=== PATIENT | male | born 1985 | race African-American/Black ===

== ENCOUNTER 2017-07-14 11:46 | Inpatient (IN) | payer MEDICAID, OTHER ==
[2017-07-14] VITALS (14 sets, daily range): BP systolic 117–147; BP diastolic 57–76; PULSE 60–95; RESP 16–24; TEMP 99.7; Ht 182.9 cm; Wt 102.8 kg
[~2017-07-14] VITALS: Ht 182.9 cm; Wt 102.8 kg
[~2017-07-14 11:46] MED LIST: EPINEPHrine 100 MCG/10 ML SYG IV ONE
[2017-07-14] MEDS ORDERED: KETOROLAC 30 MG INJ IV STA (12:59)
[2017-07-14] MEDS ORDERED: SOD CHLORIDE 0.9% 1,000 ML IV STA ×2 (12:59→14:25)
[2017-07-14] MEDS ORDERED: ONDANSETRON 4 MG INJ IV STA ×2 (12:59→14:09)
[2017-07-14 13:44] LABS: BASOPHILS % 0.1 % (0.0-2.0); HEMATOCRIT 48.3 % (42.0-52.0); HEMOGLOBIN 16.2 g/dl (14.0-18.0); LYMPHOCYTES % 7.2 % (15.0-51.0); MEAN CORPUSCULAR HEMOGLOBIN 26.7 pg (29.0-33.0); MEAN CORPUSCULAR HGB CONC 33.5 g/dl (32.0-37.0); MEAN CORPUSCULAR VOLUME 79.7 fl (82.0-101.0); MONOCYTE # 0.5 10^3/ul (0.3-0.9); MONOCYTES % 3.6 % (0.0-11.0); NEUTROPHIL # 12.4 10^3/ul (1.6-7.5); NEUTROPHILS % 88.7 % (39.0-77.0); PLATELET COUNT 326 10^3/UL (140-415); RED BLOOD COUNT 6.06 10^6/ul (4.70-6.10); RED CELL DISTRIBUTION WIDTH 13.7 % (11.5-14.5)
[2017-07-14 14:02] LABS: ADD UMIC YES; UR ASCORBIC ACID 40 mg/dL (NEGATIVE); UR BACTERIA FEW /HPF (NONE SEEN); UR BILIRUBIN (Dip) NEGATIVE (NEGATIVE); UR BLOOD (Dip) NEGATIVE (NEGATIVE); UR CLARITY CLEAR (CLEAR); UR COLOR YELLOW (YELLOW); UR GLUCOSE (Dip) NEGATIVE (NEGATIVE); UR KETONES (Dip) 2+ mg/dL (NEGATIVE); UR LEUKOCYTE ESTERASE (Dip) NEGATIVE Leu/ul (NEGATIVE); UR MUCUS MODERATE /HPF (NONE SEEN); UR NITRITE (Dip) NEGATIVE (NEGATIVE); UR RBC 15 /HPF (0-5); UR SPECIFIC GRAVITY (Dip) 1.031 (1.003-1.030); UR TOTAL PROTEIN (Dip) 1+ mg/dl (NEGATIVE); UR UROBILINOGEN (Dip) NEGATIVE (NEGATIVE)
[2017-07-14 14:03] LABS: ALBUMIN 4.6 g/dl (3.3-4.9); ALBUMIN/GLOBULIN RATIO 1.17; BILIRUBIN,INDIRECT 0.8 mg/dl (0-1.1); BILIRUBIN,TOTAL 0.8 mg/dl (0.2-1.3); CALCIUM 9.7 mg/dl (8.4-10.2); CREATININE 1.06 mg/dl (0.61-1.24); TOTAL PROTEIN 8.5 g/dl (6.1-8.1)
[2017-07-14] MEDS ORDERED: PIPER-TAZO 3.375 GM IV (PMX) 50 ML IV ONE (14:30)
--- NOTE | 2017-07-14 14:36 | ERD ---
ER Documentation Chief Complaint Chief Complaint AP N/V/D (RUDOLPH MOSS PA-C) HPI 31-year-old male, states he has a history of T-wave inversions otherwise healthy comes in with diffuse lower abdominal pain, nausea, vomiting and diarrhea beginning last night at 2 AM. Patient describes multiple episodes of nonbloody nonbilious emesis and 4 episodes of loose stools are nonbloody non- mucousy. Describes sharp pain in his lower abdomen that is diffuse, radiates bilaterally. He reports that his girlfriend at home also has had similar symptoms. He denies fevers, chills, chest pain or shortness of breath. (RUDOLPH MOSS PA-C) ROS All systems reviewed and are negative except as per history of present illness. (RUDOLPH MOSS PA-C) Allergies Allergies: Coded Allergies: No Known Allergy (Unverified , 07/14/17) PMhx/Soc History of Surgery: No Anesthesia Reaction: No Hx Neurological Disorder: No Hx Respiratory Disorders: No Hx Cardiac Disorders: No Hx Psychiatric Problems: No Hx Miscellaneous Medical Probl: No Hx Alcohol Use: No Hx Substance Use: No Hx Tobacco Use: No (RUDOLPH MOSS PA-C) Physical Exam Vitals Vital Signs Date Time Temp Pulse Resp B/P Pulse Ox O2 Delivery O2 Flow Rate FiO2 07/14/17 11:55 98.0 52 18 153/72 96 (JÚNIOR CAMPA DO) Physical Exam General: Well-developed, well-nourished. The patient appears in no acute distress. HEENT: Head is normocephalic, atraumatic. No scleral icterus. Neck: Supple. Nontender. Lungs: Clear to auscultation. Normal air movement. Heart: Regular rate and rhythm. S1 and S2 are normal. No murmurs, gallops, or rubs. Abdomen: Soft, definite tenderness in the right lower quadrant with rebound pain , nondistended. Bowel sounds are normoactive. Extremities: No clubbing or cyanosis. Normal pulses. Moving extremities x 4. No weakness. Neurologic: Alert and oriented 3. No focal deficits. Skin: Normal turgor. No rash or lesions. (RUDOLPH MOSS PA-C) Result Diagram: 07/14/17 1315 07/14/17 1315 Results 24 hrs Laboratory Tests Test 07/14/17 13:15 07/14/17 13:16 White Blood Count 14.010^3/ul Red Blood Count 6.0610^6/ul Hemoglobin 16.2g/dl Hematocrit 48.3% Mean Corpuscular Volume 79.7fl Mean Corpuscular Hemoglobin 26.7pg Mean Corpuscular Hemoglobin Concent 33.5g/dl Red Cell Distribution Width 13.7% Platelet Count 23832^3/UL Mean Platelet Volume 9.0fl Neutrophils % 88.7% Lymphocytes % 7.2% Monocytes % 3.6% Eosinophils % 0.0% Basophils % 0.1% Nucleated Red Blood Cells % 0.0/100WBC Neutrophils # 12.410^3/ul Lymphocytes # 1.010^3/ul Monocytes # 0.510^3/ul Eosinophils # 0.010^3/ul Basophils # 0.010^3/ul Nucleated Red Blood Cells # 0.010^3/ul Sodium Level 140mmol/L Potassium Level 4.0mmol/L Chloride Level 99mmol/L Carbon Dioxide Level 26mmol/L Anion Gap 19 Blood Urea Nitrogen 11mg/dl Creatinine 1.06mg/dl Glucose Level 125mg/dl Calcium Level 9.7mg/dl Total Bilirubin 0.8mg/dl Direct Bilirubin 0.00mg/dl Indirect Bilirubin 0.8mg/dl Aspartate Amino Transf (AST/SGOT) 46IU/L Alanine Aminotransferase (ALT/SGPT) 75IU/L Alkaline Phosphatase 90IU/L Total Protein 8.5g/dl Albumin 4.6g/dl Globulin 3.90g/dl Albumin/Globulin Ratio 1.17 Lipase 37U/L Urine Color YELLOW Urine Clarity CLEAR Urine pH 7.0 Urine Specific [place] 1.031 Urine Ketones 2+mg/dL Urine Nitrite NEGATIVEmg/dL Urine Bilirubin NEGATIVEmg/dL Urine Urobilinogen NEGATIVEmg/dL Urine Leukocyte Esterase NEGATIVELeu/ul Urine Microscopic RBC 15/HPF Urine Microscopic WBC 2/HPF Urine Bacteria FEW/HPF Urine Mucus MODERATE/HPF Urine Hemoglobin NEGATIVEmg/dL Urine Glucose NEGATIVEmg/dL Urine Total Protein 1+mg/dl Current Medications Medications (Trade) Dose Ordered Sig/Kelly Route PRN Reason Start Time Stop Time Status Last Admin Dose Admin Sodium Chloride (NS) 1,000 ml @ 1,000 mls/hr Q1H STAT IV 07/14/17 12:59 07/14/17 13:58 DC 07/14/17 13:25 Ondansetron HCl (Zofran Inj) 4 mg ONCE STAT IV 07/14/17 12:59 07/14/17 13:00 DC 07/14/17 13:25 Ketorolac Tromethamine (Toradol) 30 mg ONCE STAT IV 07/14/17 12:59 07/14/17 13:00 DC 07/14/17 13:25 Ondansetron HCl 4 mg 4 mg ONCE STAT IV 07/14/17 14:09 07/14/17 14:10 DC 07/14/17 14:12 Sodium Chloride 1,000 ml @ 1,000 mls/hr Q1H STAT IV 07/14/17 14:25 07/14/17 15:24 Piperacillin Sod/ Tazobactam Sod (Zosyn 3.375gm/ 50 ml (Pmx)) 50 ml @ 100 mls/hr ONCE ONCE IV 07/14/17 14:30 07/14/17 14:59 (JÚNIOR CAMPA DO) Results 24 hrs PROCEDURE: CT ABDOMEN AND PELVIS WITHOUT CONTRAST. CLINICAL INDICATION: Right lower quadrant abdominal pain TECHNIQUE: CT scan of the abdomen and pelvis without contrast was performed on a multidetector high-resolution CT scanner. The patient was scanned without intravenous contrast. Coronal and sagittal reformatted images were obtained from the axial source images. Images were reviewed on a high-resolution PACS workstation. The total exam CTDI equals 19.2 mGy and the total exam DLP equals 1089.5 mGy-cm. One or more of the following dose reduction techniques were used: Automated exposure control. Adjustment of the mA and/or kV according to patient size. Use of iterative reconstruction technique. DICOM images are available COMPARISON: None FINDINGS: CT abdomen: The lung bases are clear. The heart size is within limits. There is no significant pericardial effusion. There is diffuse fatty infiltration of the liver. Gallbladder is unremarkable. No evidence of intrahepatic or extrahepatic biliary dilatation. The spleen and pancreas are within normal limits. Both adrenal glands are within normal limits. Both kidneys are in normal anatomic position. No evidence of obstruction or hydronephrosis. No gross renal/ureteric calculi. The visualized GI tract demonstrates a fluid filled distended appendix, consistent with acute appendicitis. There is mild adjacent fat stranding. A 1.0 cm appendicolith is noted proximally at the base of the appendix. Several adjacent right lower quadrant mesenteric lymph nodes are noted. The unenhanced aorta is unremarkable. There is no significant retroperitoneal lymphadenopathy. Small fat-containing umbilical hernia. CT pelvis: The bladder is within limits. The rectosigmoid colon is within normal limits. The prostate is normal size. Small amount of free fluid within the pelvis. No significant pelvic lymphadenopathy. The visualized osseous structures, appears to be within normal limits. IMPRESSION: 1. FINDINGS DESCRIBED ABOVE ARE CONSISTENT WITH ACUTE APPENDICITIS. There is no evidence of perforation or focal fluid collections. Mild adjacent fat stranding is noted. There is a 1.0 cm appendicolith at the base of the appendix. Several adjacent mesenteric lymph nodes are noted. 2. No evidence of bowel obstruction. 3. Fatty liver. 4. Small amount of free fluid within the pelvis. Critical findings were discussed with KENDY Moss @ 2:20 PM on 07/14/17 RPTAT: AAPP Signed By: Azael Jefferson 07/14/2017 2:22:17 PM 12-lead EKG(interpreted by supervising physician): Reviewed by Dr. Campa Rate/Rhythm: Sinus bradycardia, the rate of 48, nonspecific ST changes with T-wave inversions in lateral leads. QRS, ST, T-waves: No changes consistent w/ acute ischemia, no intervals, no dysrhythmias, no ectopy Impression: No evidence of ischemia or arrhythmia (RUDOLPH MOSS PA-C) Procedures/MDM ED COURSE: Initially the thought was that the patient likely had viral gastroenteritis, he was given a fluid bolus of normal saline with Zofran 4 mg IV and Toradol 30 mg IV. The patient states that his pain significantly improved however he still has significant tenderness in the right lower quadrant and therefore CT abdomen pelvis was ordered. CT abdomen pelvis was significant for acute appendicitis with an appendicolith measuring up to 1 cm. She states his last intake was at 7 PM last night, patient was kept n.p.o. MEDICAL DECISION MAKIN-year-old male comes in with acute appendicitis, no perforation or intra- abdominal abscess. The patient's history was concerning given his vomiting with significant pain in the lower abdomen, in the right lower quadrant. Diarrhea was also part of patient's history but may be part of a gastroenteritis given that the patient's girlfriend has had similar symptoms. Patient was notified of findings, and will be admitted, adult surgery will be consulted by Dr. Campa. (RUDOLPH MOSS PA-C) I spoke with Dr. Liz, general surgeon stone setter who will manage this case surgically. Adding additional fluids. I will continue to monitor this patient for pain control and any change from stable vital signs. Waiting registration to see if the patient has a specific admitting provider and will speak to that provider get the patient admitted to the hospital as soon as possible. (JÚNIOR CAMPA DO) Departure Diagnosis: Primary Impression: Appendicitis Condition: Stable RUDOLPH MOSS PA-C Jul 14, 2017 14:36 JÚNIOR CAMPA DO Jul 14, 2017 14:42
[2017-07-14] MEDS ORDERED: SOD CHLORIDE 0.9% 1,000 ML IV ONE (15:00)
[2017-07-14] MEDS ORDERED: ALBU18HF INHALATION (16:27)
--- NOTE | 2017-07-14 16:55 | RADRPT ---
PROCEDURE: CT ABDOMEN AND PELVIS WITHOUT CONTRAST. CLINICAL INDICATION: Right lower quadrant abdominal pain TECHNIQUE: CT scan of the abdomen and pelvis without contrast was performed on a multidetector hig h-resolution CT scanner. The patient was scanned without intravenous contrast. Coronal and sagittal reformatted images were obtained from the axial source images. Images were reviewed on a high-resol [employer] PACS workstation. The total exam CTDI equals 19.2 mGy and the total exam DLP equals 1089.5 mGy -cm. One or more of the following dose reduction techniques were used: Automated exposure control. Adjustment of the mA and/or kV according to patient size. Use of iterative reconstruction technique. DICOM images are available COMPARISON: None FINDINGS: CT abdomen: The lung bases are clear. The heart size is within limits. There is no significant pericardial effus ion. There is diffuse fatty infiltration of the liver. Gallbladder is unremarkable. No evidence of intrah epatic or extrahepatic biliary dilatation. The spleen and pancreas are within normal limits. Both adrenal glands are within normal limits. Both kidneys are in normal anatomic position. No evidence of obstruction or hydronephrosis. No gross renal/ureteric calculi. The visualized GI tract demonstrates a fluid filled distended appendix, consistent with acute append icitis. There is mild adjacent fat stranding. A 1.0 cm appendicolith is noted proximally at the base of the appendix. Several adjacent right lower quadrant mesenteric lymph nodes are noted. The unenhanced aorta is unremarkable. There is no significant retroperitoneal lymphadenopathy. Small fat-containing umbilical hernia. CT pelvis: The bladder is within limits. The rectosigmoid colon is within normal limits. The prostate is normal size. Small amount of free fluid within the pelvis. No significant pelvic lymphadenopathy. The visualized osseous structures, appears to be within normal limits. IMPRESSION: 1. FINDINGS DESCRIBED ABOVE ARE CONSISTENT WITH ACUTE APPENDICITIS. There is no evidence of perfo ration or focal fluid collections. Mild adjacent fat stranding is noted. There is a 1.0 cm appendico lith at the base of the appendix. Several adjacent mesenteric lymph nodes are noted. 2. No evidence of bowel obstruction. 3. Fatty liver. 4. Small amount of free fluid within the pelvis. Critical findings were discussed with KENDY Moss @ 2:20 PM on 07/14/17 RPTAT: AAPP Bienvenido Jefferson, Physician Date Time Electronically viewed and signed by Bienvenido Jefferson Physician on 07/14/2017 14:22 JL/
--- NOTE | 2017-07-14 16:56 | RADRPT ---
PROCEDURE: XR Chest. CLINICAL INDICATION: Abdominal pain, appendicitis TECHNIQUE: Single frontal view of the chest was obtained COMPARISON: CT from same day FINDINGS: The heart and mediastinum are within normal limits. The lungs are clear. There is no pleural effusion or pneumothorax. RPTAT: AA IMPRESSION: No acute disease. .Abhijit Fakl MD, MD Date Time Electronically viewed and signed by .Abhijit Falk MD, on 07/14/2017 15:16 .S/
[2017-07-14] MEDS ORDERED: morphine 4 MG/ML VIAL IV STA (17:19)
[2017-07-14] MEDS ORDERED: ONDANSETRON 4 MG INJ IV PRN ×4 (17:30→22:30)
[2017-07-14] MEDS ORDERED: ACETAMINOPHEN 325 MG TAB PO PRN (17:30)
[2017-07-14] MEDS ORDERED: DOCUSATE SODIUM 100 MG CAP PO PRN (18:00)
[2017-07-14] MEDS ORDERED: NACL 0.9% 3 ML SYG IV SCH (18:00)
[2017-07-14] MEDS ORDERED: MAGNESIUM HYDROXIDE 30ML CUP PO PRN (18:00)
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
[2017-07-14] MEDS ORDERED: SOD CHLORIDE 0.9% 1,000 ML IV SCH (18:30)
[2017-07-14] MEDS ORDERED: LIDOCAINE 1%/EPI 30 ML INJ ONE (20:12)
[2017-07-14] MEDS ORDERED: BUPIVACAINE 0.25%/EPI (SDV) 30 ML INJ ONE (20:12)
[2017-07-14] MEDS ORDERED: NEOSTIGMINE 3 MG/3 ML SYRINGE ONE (21:14)
[2017-07-14] MEDS ORDERED: ROCURONIUM 50 MG INJ ONE (21:14)
[2017-07-14] MEDS ORDERED: MIDAZOLAM 1 MG/ML 2 ML INJ ONE (21:14)
[2017-07-14] MEDS ORDERED: CEFAZOLIN 1 GM INJ ONE (21:14)
[2017-07-14] MEDS ORDERED: GLYCOPYRROLATE 0.4 MG INJ ONE (21:14)
[2017-07-14] MEDS ORDERED: FENTAnyl 50 MCG/ML VIAL ONE ×2 (21:14→22:09)
[2017-07-14] MEDS ORDERED: PROPOFOL 20 ML ONE (21:14)
[2017-07-14] MEDS ORDERED: DEXAMETHASONE 4 MG/ML 1 ML INJ ONE (21:15)
[2017-07-14] MEDS ORDERED: ONDANSETRON 4 MG INJ ONE (21:15)
[2017-07-14] MEDS ORDERED: SUGAMMADEX SODIUM 200 MG/2 ML VIAL IV ONE (21:17)
--- NOTE | 2017-07-14 21:31 | SIPON ---
Date/Time of Note Date/Time of Note DATE: 07/14/17 TIME: 21:31 Operative Report Preoperative Diagnosis Acute appendicitis Postoperative Diagnosis Same Operation/Procedure Performed Laparoscopic appendectomy Surgeon see signature line financial assistance specialist None Anesthesia: general Estimated blood loss: minimal Transfusion Required none Specimen Appendix Grafts/Implants none Complications none JOSÉ ANTONIO TIWARI MD Jul 14, 2017 21:31
--- NOTE | 2017-07-14 21:31 | CONS ---
Date/Time of Note Date/Time of Note DATE: 07/14/17 TIME: 21:28 Assessment/Plan Assessment/Plan Additional Assessment/Plan Acute appendicitis I discussed laparoscopic, possible open, appendectomy the patient. All benefits , risks, alternatives discussed in detail. All questions answered. The patient asked to proceed Consultation Date/Type/Reason Admit Date/Time 07/14/17 Date of Consultation: Jul 14, 2017 Hx of Present Illness The patient is a 31-year-old male who had acute onset of generalized abdominal pain this morning at 2 AM. He thought to be gastroenteritis. However, over the course of the day his pain localized to right lower quadrant he presented to the ER. His workup in the ER is consistent with acute appendicitis. Past Medical History Medical History: high cholesterol, other (asthma as a child, T wave inversions) Past Surgical History Past Surgical Hx: no surgical history, other (achilles repair) Family History Significant Family History: no pertinent family hx Social History Alcohol Use: none Smoking Status: Never smoker Drug Use: none Exam/Review of Systems Vital Signs Vitals Vital Signs Date Time Temp Pulse Resp B/P Pulse Ox O2 Delivery O2 Flow Rate FiO2 07/14/17 20:08 99.2 73 16 117/57 96 07/14/17 19:00 Room Air Exam Constitutional: alert, oriented, well developed Psych: no complaints Head: normocephalic Eyes: nl conjunctiva ENMT: nl external ears & nose Neck: supple Respiratory: clear to auscultation Cardiovascular: regular rate and rhythm Gastrointestinal: soft, tender Musculoskeletal: nl extremities to inspection Extremities: normal pulses Neurological: 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 II-XII intact (Right lower quadrant) Skin: nl turgor Lymph: nl lymph nodes Results Result Diagram: 07/14/17 1315 07/14/17 1315 Results 24 hrs Laboratory Tests Test 07/14/17 13:15 07/14/17 13:16 White Blood Count 14.0 H Red Blood Count 6.06 Hemoglobin 16.2 Hematocrit 48.3 Mean Corpuscular Volume 79.7 L Mean Corpuscular Hemoglobin 26.7 L Mean Corpuscular Hemoglobin Concent 33.5 Red Cell Distribution Width 13.7 Platelet Count 326 Mean Platelet Volume 9.0 Neutrophils % 88.7 H Lymphocytes % 7.2 L Monocytes % 3.6 Eosinophils % 0.0 Basophils % 0.1 Nucleated Red Blood Cells % 0.0 Neutrophils # 12.4 H Lymphocytes # 1.0 Monocytes # 0.5 Eosinophils # 0.0 Basophils # 0.0 Nucleated Red Blood Cells # 0.0 Sodium Level 140 Potassium Level 4.0 Chloride Level 99 Carbon Dioxide Level 26 Anion Gap 19 H Blood Urea Nitrogen 11 Creatinine 1.06 Glucose Level 125 Calcium Level 9.7 Total Bilirubin 0.8 Direct Bilirubin 0.00 Indirect Bilirubin 0.8 Aspartate Amino Transf (AST/SGOT) 46 Alanine Aminotransferase (ALT/SGPT) 75 H Alkaline Phosphatase 90 Total Protein 8.5 H Albumin 4.6 Globulin 3.90 H Albumin/Globulin Ratio 1.17 Lipase 37 Urine Color YELLOW Urine Clarity CLEAR Urine pH 7.0 Urine Specific [place] 1.031 H Urine Ketones 2+ H Urine Nitrite NEGATIVE Urine Bilirubin NEGATIVE Urine Urobilinogen NEGATIVE Urine Leukocyte Esterase NEGATIVE Urine Microscopic RBC 15 H Urine Microscopic WBC 2 Urine Bacteria FEW A Urine Mucus MODERATE Urine Hemoglobin NEGATIVE Urine Glucose NEGATIVE Urine Total Protein 1+ H Imaging Free Text/Dictation Patient: MO SNOW : 1985 Age: 31 Sex: M MR #: [id number] DOS: 07/14/17 1354 Ordering MD: RUDOLPH VINES PA-C Location: [facility] Room/Bed: PROCEDURE: CT ABDOMEN AND PELVIS WITHOUT CONTRAST. CLINICAL INDICATION: Right lower quadrant abdominal pain TECHNIQUE: CT scan of the abdomen and pelvis without contrast was performed on a multidetector high-resolution CT scanner. The patient was scanned without intravenous contrast. Coronal and sagittal reformatted images were obtained from the axial source images. Images were reviewed on a high-resolution PACS workstation. The total exam CTDI equals 19.2 mGy and the total exam DLP equals 1089.5 mGy-cm. One or more of the following dose reduction techniques were used: Automated exposure control. Adjustment of the mA and/or kV according to patient size. Use of iterative reconstruction technique. DICOM images are available COMPARISON: None FINDINGS: CT abdomen: The lung bases are clear. The heart size is within limits. There is no significant pericardial effusion. There is diffuse fatty infiltration of the liver. Gallbladder is unremarkable. No evidence of intrahepatic or extrahepatic biliary dilatation. The spleen and pancreas are within normal limits. Both adrenal glands are within normal limits. Both kidneys are in normal anatomic position. No evidence of obstruction or hydronephrosis. No gross renal/ureteric calculi. The visualized GI tract demonstrates a fluid filled distended appendix, consistent with acute appendicitis. There is mild adjacent fat stranding. A 1.0 cm appendicolith is noted proximally at the base of the appendix. Several adjacent right lower quadrant mesenteric lymph nodes are noted. The unenhanced aorta is unremarkable. There is no significant retroperitoneal lymphadenopathy. Small fat-containing umbilical hernia. CT pelvis: The bladder is within limits. The rectosigmoid colon is within normal limits. The prostate is normal size. Small amount of free fluid within the pelvis. No significant pelvic lymphadenopathy. The visualized osseous structures, appears to be within normal limits. IMPRESSION: 1. FINDINGS DESCRIBED ABOVE ARE CONSISTENT WITH ACUTE APPENDICITIS. There is no evidence of perforation or focal fluid collections. Mild adjacent fat stranding is noted. There is a 1.0 cm appendicolith at the base of the appendix. Several adjacent mesenteric lymph nodes are noted. 2. No evidence of bowel obstruction. 3. Fatty liver. 4. Small amount of free fluid within the pelvis. Medications Medications Current Medications Ondansetron HCl (Zofran Inj) 4 mg Q6H PRN IV NAUSEA AND/OR VOMITING; Start at 18:00 Acetaminophen (Tylenol Tab) 650 mg Q6H PRN PO PAIN LEVEL 1-3 OR FEVER; Start 07/14/17 at 18:00 Acetaminophen/ Hydrocodone Bitart ([place] (5/325)) 1 tab Q6H PRN PO MODERATE PAIN LEVEL 4-6; Start 07/14/17 at 18:00 Acetaminophen/ Hydrocodone Bitart ([place] (5/325)) 2 tab Q6H PRN PO SEVERE PAIN LEVEL 7-10; Start 07/14/17 at 18:00 Morphine Sulfate (morphine) 2 mg Q4H PRN IV SEVERE PAIN LEVEL 7-10; Start at 18:00 Docusate Sodium (Colace) 100 mg Q12H PRN PO CONSTIPATION; Start 07/14/17 at 18 :00 Magnesium Hydroxide 30 ml 30 ml DAILY PRN PO CONSTIPATION; Start 07/14/17 at 18:00 Sodium Chloride (NS) 1,000 ml @ 75 mls/hr [id number] IV Last administered on t 19:43; Admin Dose 75 MLS/HR; Start 12/14/17 at 18:30; Stop 07/15/17 at 06:29 Famotidine (Pepcid) 20 mg DAILY PO ; Start 07/15/17 at 09:00 JOSÉ ANTONIO TIWARI MD Jul 14, 2017 21:31
--- NOTE | 2017-07-14 21:34 | OPR ---
Date/Time of Note Date/Time of Note DATE: 07/14/17 TIME: 21:31 Operative Report Procedure Date: Jul 14, 2017 Preoperative Diagnosis Acute appendicitis Postoperative Diagnosis Same Operation/Procedure Performed Laparoscopic appendectomy Surgeon see signature line Professor/Nurse Anesthetist none Anesthesia Type: general Anesthesiologist: Que King M.D. Estimated Blood Loss: minimal Transfusion none Specimen appendix Grafts/Implants none Complications none Pt Condition Post Procedure: stable Disposition: PACU Indications The patient is a 31-year-old male with a acute onset of generalized abdominal pain, localizing to the right lower quadrant. He presented to the ER and was diagnosed with acute appendicitis. I discussed laparoscopic, possible open appendectomy with the patient. All benefits, risks, alternatives discussed in detail. All questions answered. The patient elected to proceed. Procedure Description The patient was brought to operative room placed supine on the table. After preop antibiotics and SCDs were applied, the patient was intubated and the abdomen was cleaned, prepped, and draped in usual sterile fashion. All incisions were infiltrated with 1 spotting with epi house Marcaine prior to incision. A 5 mm incision was made in the umbilicus. Using a 5 minute laparoscopic containing trocar, the abdomen was entered direct vision insufflated 50 mm of CO2. Under direct vision, the following trochars were placed: A 5 mm right lower quadrant and a left lower quadrant 12 mm. There was some serosanguineous fluid in the pelvis. The appendix was visualized and was consistent with acute appendicitis.. I made a rent in the mesentery to base the appendix divided the cecum at the base of the appendix with a 35 mm Endo linear cutter white load. The appendiceal mesentery was then divided with a 35 mm Endo linear cutter white load. The appendix was then removed the 12 mm trocar site. I visualized my staple lines. T I then turned my attention to the pelvis. I irrigated out the right lower quadrant and pelvis until effluent was clear. I desufflated the abdomen moved all trochars. The fascia of the 12 mm trocar site was closed with 0 Vicryl. Skin incisions were all closed with 4 Monocryl, Mastisol, and Steri-Strips. The patient tolerated the procedure well, was extubated in the OR, transferred to the recovery room stable condition. JOSÉ ANTONIO TIWARI MD Jul 14, 2017 21:34
[2017-07-14] MEDS ORDERED: AMPICILLIN/SULB 3 GM/NS (PMX) 100 ML IVPB SCH (22:00)
[2017-07-14] MEDS ORDERED: OXYCODONE/ACETAMINOPHEN (5/325) TAB PO PRN ×3 (22:00→22:30)
[2017-07-14] MEDS ORDERED: morphine 2 MG INJ IV PRN (22:00)
[2017-07-14] MEDS ORDERED: KETOROLAC 15 MG INJ IV SCH (22:00)
[2017-07-14] MEDS ORDERED: LABETALOL HCL 20MG INJ IV PRN (22:30)
[2017-07-14] MEDS ORDERED: MIDAZOLAM 1 MG/ML 2 ML INJ IV PRN (22:30)
[2017-07-14] MEDS ORDERED: DIPHENHYDRAMINE 50 MG INJ IV PRN (22:30)
[2017-07-14] MEDS ORDERED: HYDROmorphONE (0.2 MG/ML) 10ML SYG IV PRN ×3 (22:30)
[2017-07-14] MEDS ORDERED: TRIMETHOBENZAMIDE 100 MG/ML VIAL IM PRN (22:30)
[2017-07-14] MEDS ORDERED: EPHEDrine SULFATE 50 MG/5 ML SYG IV PRN (22:30)
[2017-07-14] MEDS ORDERED: ALBUTEROL 0.083% (NEB) 2.5 MG/3 ML AMP HHN PRN (22:30)
[2017-07-14] MEDS ORDERED: FENTAnyl 50 MCG/ML VIAL IV PRN ×3 (22:30)
[2017-07-14] MEDS ORDERED: MEPERIDINE 25 MG INJ IV PRN (22:30)
[2017-07-14] MEDS ORDERED: IPRATROPIUM (NEB) 0.5 MG/2.5 ML AMP HHN PRN (22:30)
[2017-07-14] MEDS ORDERED: hydrALAzine 20 MG INJ IV PRN (22:30)
[2017-07-14] MEDS ORDERED: ALBUTEROL 0.5% (NEB) 2.5 MG/0.5 ML AMP ONE (22:49)
[2017-07-14] MEDS: ALBUTEROL 0.083% (NEB) 2.5 MG/3 ML AMP HHN PRN (22:55)
[2017-07-15] MEDS: KETOROLAC 15 MG INJ IV SCH ×5 (00:45→23:40)
[2017-07-15] MEDS: AMPICILLIN/SULB 3 GM/NS (PMX) 100 ML IVPB SCH ×4 (00:45→18:16)
[2017-07-15] MEDS: D5-NS + KCL 20 MEQ 1,000 ML IV SCH ×3 (00:46→16:35)
[2017-07-15 02:20] VITALS: BP 126/60; RESP 20
[2017-07-15 06:38] LABS: ABNORMAL IP MESSAGE 1; HEMATOCRIT 43.6 % (42.0-52.0); HEMOGLOBIN 14.5 g/dl (14.0-18.0); MEAN CORPUSCULAR HGB CONC 33.3 g/dl (32.0-37.0); MEAN CORPUSCULAR VOLUME 81.2 fl (82.0-101.0); MEAN PLATELET VOLUME 9.3 fl (7.4-10.4); PLATELET COUNT 245 10^3/UL (140-415); POSITIVE DIFF @See below; RED BLOOD COUNT 5.37 10^6/ul (4.70-6.10); RED CELL DISTRIBUTION WIDTH 14.1 % (11.5-14.5); WHITE BLOOD COUNT 15.8 10^3/ul (4.8-10.8)
[2017-07-15 06:50] LABS: ALBUMIN 3.6 g/dl (3.3-4.9); ALBUMIN/GLOBULIN RATIO 1.05; BILIRUBIN,INDIRECT 0.7 mg/dl (0-1.1); BILIRUBIN,TOTAL 0.7 mg/dl (0.2-1.3); CALCIUM 8.8 mg/dl (8.4-10.2); CREATININE 1.32 mg/dl (0.61-1.24); MAGNESIUM 1.6 mg/dl (1.7-2.5); POTASSIUM 4.4 mmol/L (3.5-5.1)
[2017-07-15 08:05] VITALS: BP 118/56; RESP 18
[2017-07-15] MEDS: ENOXAPARIN 40 MG/0.4 ML SYG SC SCH (08:50)
[2017-07-15] MEDS: FAMOTIDINE 20 MG TAB PO SCH (08:51)
[2017-07-15] MEDS: ACETAMINOPHEN 325 MG TAB PO PRN ×2 (08:51→18:22)
[2017-07-15 08:59] LABS: ANISOCYTOSIS 1+ (0-0); BASOPHILS % (M) 1 % (0-2); MICROCYTOSIS 1+ (0-0); MONOCYTES % (M) 8 % (0-11); PLATELET ESTIMATE NORMAL
[2017-07-15] MEDS ORDERED: MAGNESIUM SULFATE 2 GM/50 ML 50 ML IVPB ONE (12:00)
--- NOTE | 2017-07-15 14:35 | PN ---
Date/Time of Note Date/Time of Note DATE: 07/15/17 TIME: 14:34 Assessment/Plan Lines/Catheters IV [facility]): Peripheral IV Assessment/Plan Chief Complaint/Hosp Course Postop day 1 status post lap appendectomy Recommend 1 more day of IV antibiotics. Hopefully, white count will improve and will be febrile and will be able to be discharged tomorrow. Problems: Subjective 24 Hr Interval Summary Postop day 1 status post lap appendectomy Constitutional: ambulates, flatus, improved Feeding: advancing diet Exam/Review of Systems Vital Signs Vitals Vital Signs Date Time Temp Pulse Resp B/P Pulse Ox O2 Delivery O2 Flow Rate FiO2 07/15/17 08:05 100.2 82 18 118/56 93 07/14/17 23:50 Nasal Cannula 2.0 07/14/17 23:02 28 Intake and Output 07/14/17 07/14/17 07/15/17 15:00 23:00 07:00 Intake Total 1275 ml 1160 ml Output Total 5 ml Balance 1270 ml 1160 ml Exam Constitutional: alert, oriented, well developed Psych: no complaints Head: normocephalic Eyes: nl conjunctiva Neck: supple Respiratory: clear to auscultation Cardiovascular: regular rate and rhythm Gastrointestinal: distended (Mildly), soft Results Result Diagram: 07/15/17 0507/15/17 05 JOSÉ ANTONIO TIWARI MD Jul 15, 2017 14:35
[2017-07-15 14:50] VITALS: BP 112/53; RESP 16
--- NOTE | 2017-07-15 18:08 | PN ---
Date/Time of Note Date/Time of Note DATE: 07/15/17 TIME: 18:03 Assessment/Plan VTE Prophylaxis VTE Prophylaxis Intervention: SCD's Lines/Catheters IV Catheter Type (from Nrsg): Peripheral IV Assessment/Plan Assessment/Plan 1. Acute appendicitis s/p lap appy - Patient still requiring IV pain medications - Tolerating clear liquids and will advance as tolerated - Surgery on board and consultation appreciated. recommending 1 more day of IV antibiotics and if remains stable d/c tmrw 2. MARY ANNE - most likely prerenal - encouraged PO hydration - continue to monitor 3. Asthma - Stable 4. Disposition - Continue monitoring in med/surg - if remains stable, will d/c in am Subjective 24 Hr Interval Summary Free Text/Dictation Patient not feeling well and experiencing pain. Tolerating clear liquids and will advance as tolerated. had a low grade temperature last night and has only had a small BM this am. Exam/Review of Systems Vital Signs Vitals Vital Signs Date Time Temp Pulse Resp B/P Pulse Ox O2 Delivery O2 Flow Rate FiO2 07/15/17 14:50 98.7 72 16 112/53 94 07/14/17 23:50 Nasal Cannula 2.0 07/14/17 23:02 28 Intake and Output 07/14/17 07/14/17 07/15/17 15:00 23:00 07:00 Intake Total 1275 ml 1160 ml Output Total 5 ml Balance 1270 ml 1160 ml Exam Constitutional: alert, oriented, well developed, No distress Eyes: EOMI, PERRL, nl sclera Neck: non-tender, supple Respiratory: clear to auscultation, No crackles/rales, No diminished breath sounds, No labored breathing, No wheezing Cardiovascular: regular rate and rhythm, No murmurs/extra sounds, No systolic murmur Gastrointestinal: bowel sounds, soft, mild tenderness RLQ, No distended, No rebound or guarding Musculoskeletal: nl extremities to inspection Extremities: normal pulses Neurological: COMBAT SYSTEMS OFFICER II-XII intact, nl mental status, nl speech Results Result Diagram: 07/15/1752107/15/17 0522 Results 24 hrs Laboratory Tests Test 07/15/17 05:22 White Blood Count 15.8 H Red Blood Count 5.37 Hemoglobin 14.5 Hematocrit 43.6 Mean Corpuscular Volume 81.2 L Mean Corpuscular Hemoglobin 27.0 L Mean Corpuscular Hemoglobin Concent 33.3 Red Cell Distribution Width 14.1 Platelet Count 245 # Mean Platelet Volume 9.3 Neutrophils % Segmented Neutrophils % (Manual) 58 Band Neutrophils % (Manual) 28 H Lymphocytes % Lymphocytes % (Manual) 5 L Monocytes % Monocytes % (Manual) 8 Eosinophils % Basophils % Basophils % (Manual) 1 Nucleated Red Blood Cells % 0.0 Neutrophils # Neutrophils # (Manual) 9.9 H Band Neutrophils # 4.4 H Absolute Lymphocytes (Manual) 0.7 L Lymphocytes # Monocytes # Absolute Monocytes (Manual) 1.2 H Eosinophils # Basophils # Basophils # (Manual) 0.1 H Nucleated Red Blood Cells # Platelet Estimate NORMAL Anisocytosis 1+ Microcytosis 1+ Sodium Level 140 Potassium Level 4.4 Chloride Level 104 Carbon Dioxide Level 26 Anion Gap 14 Blood Urea Nitrogen 13 Creatinine 1.32 H Glucose Level 139 Calcium Level 8.8 Magnesium Level 1.6 L Total Bilirubin 0.7 Direct Bilirubin 0.00 Indirect Bilirubin 0.7 Aspartate Amino Transf (AST/SGOT) 34 Alanine Aminotransferase (ALT/SGPT) 55 Alkaline Phosphatase 62 Total Protein 7.0 # Albumin 3.6 # Globulin 3.40 H Albumin/Globulin Ratio 1.05 Medications Medications Current Medications Ondansetron HCl (Zofran Inj) 4 mg Q6H PRN IV NAUSEA AND/OR VOMITING; Start at 18:00 Acetaminophen (Tylenol Tab) 650 mg Q6H PRN PO PAIN LEVEL 1-3 OR FEVER; Start 07/14/17 at 18:00 Acetaminophen/ Hydrocodone Bitart ([place] (5/325)) 1 tab Q6H PRN PO MODERATE PAIN LEVEL 4-6; Start 07/14/17 at 18:00 Acetaminophen/ Hydrocodone Bitart ([place] (5/325)) 2 tab Q6H PRN PO SEVERE PAIN LEVEL 7-10; Start 07/14/17 at 18:00 Morphine Sulfate (morphine) 2 mg Q4H PRN IV SEVERE PAIN LEVEL 7-10; Start at 18:00 Docusate Sodium (Colace) 100 mg Q12H PRN PO CONSTIPATION; Start 07/14/17 at 18 :00 Magnesium Hydroxide (Milk Of Mag) 30 ml DAILY PRN PO CONSTIPATION; Start 07/14 at 18:00 Famotidine (Pepcid) 20 mg DAILY PO Last administered on 07/15/17 08:51; Admin Dose 20 MG; Start 07/15/17 at 09:00 Morphine Sulfate (morphine) 2 mg Q2H PRN IV PAIN LEVEL 6-10; Start 07/14/17 at 22:00 Oxycodone/ Acetaminophen (Perc[place] (5/ 325)) 1 tab Q6H PRN PO PAIN LEVEL 6-10; Start 07/14/17 at 22:00 Acetaminophen (Tylenol Tab) 650 mg Q6H PRN PO PAIN AND OR ELEVATED TEMP Last administered on 07/15/17 08:51; Admin Dose 650 MG; Start 07/14/17 at 22:00 Ondansetron HCl 4 mg 4 mg Q6H PRN IV NAUSEA AND/OR VOMITING; Start 07/14/17 at 22:00 Potassium Chloride/Dextrose/ Sod Cl (D5-NS + KCl 20 Meq) 1,000 ml @ 100 mls/hr Q10H IV Last administered on 07/15/17 16:35; Admin Dose 100 MLS/HR; Start at 21:48 Enoxaparin Sodium 40 mg 40 mg DAILY@07 SC Last administered on 07/15/17 08:50 ; Admin Dose 40 MG; Start 07/15/17 at 07:00 Ampicillin Sodium/ Sulbactam Sodium (Unasyn 3gm/NS (Pmx)) 100 ml @ 200 mls/hr Q6H IVPB Last administered on 07/15/17 12:42; Admin Dose 200 MLS/HR; Start 07/15/17 at 00:00; Stop 07/15/17 at 23:59 Ketorolac Tromethamine (Toradol) 15 mg Q6H IV Last administered on 07/15/17 12:42; Admin Dose 15 MG; Start 07/15/17 at 00:00; Stop 07/16/17 at 18:01 Ibuprofen (Motrin) 600 mg Q6H PRN PO PAIN LEVEL 1-5; Start 07/16/17 at 18:02 ERIBERTO SAGASTUME MD Jul 15, 2017 18:07
[2017-07-15 19:30] VITALS: BP 113/54; RESP 18
[2017-07-16 01:57] VITALS: BP 116/64; RESP 18
[2017-07-16] MEDS: D5-NS + KCL 20 MEQ 1,000 ML IV SCH (03:40)
[2017-07-16] MEDS: ENOXAPARIN 40 MG/0.4 ML SYG SC SCH (06:13)
[2017-07-16] MEDS: KETOROLAC 15 MG INJ IV SCH ×3 (06:14→17:36)
[2017-07-16] MEDS: ACETAMINOPHEN 325 MG TAB PO PRN ×2 (06:29→13:18)
[2017-07-16 06:38] LABS: HEMATOCRIT 39.1 % (42.0-52.0); HEMOGLOBIN 12.7 g/dl (14.0-18.0); MEAN CORPUSCULAR HEMOGLOBIN 26.3 pg (29.0-33.0); MEAN CORPUSCULAR HGB CONC 32.5 g/dl (32.0-37.0); MEAN CORPUSCULAR VOLUME 81.1 fl (82.0-101.0); MEAN PLATELET VOLUME 9.8 fl (7.4-10.4); PLATELET COUNT 198 10^3/UL (140-415); POSITIVE DIFF @See below; RED BLOOD COUNT 4.82 10^6/ul (4.70-6.10); RED CELL DISTRIBUTION WIDTH 14.1 % (11.5-14.5); WHITE BLOOD COUNT 8.5 10^3/ul (4.8-10.8)
[2017-07-16 06:51] LABS: ALBUMIN 2.9 g/dl (3.3-4.9); CALCIUM 8.1 mg/dl (8.4-10.2); CREATININE 1.29 mg/dl (0.61-1.24); MAGNESIUM 2.1 mg/dl (1.7-2.5); PHOSPHORUS 1.9 mg/dl (2.5-4.9); POTASSIUM 4.4 mmol/L (3.5-5.1)
[2017-07-16 07:34] VITALS: BP 135/76; RESP 18
[2017-07-16] MEDS: ALBUTEROL 0.083% (NEB) 2.5 MG/3 ML AMP HHN PRN (07:43)
[2017-07-16] MEDS: FAMOTIDINE 20 MG TAB PO SCH (08:43)
[2017-07-16 10:02] LABS: ANISOCYTOSIS 1+ (0-0); EOSINOPHILS % (M) 4 % (0-7); MONOCYTES % (M) 9 % (0-11); PLATELET ESTIMATE NORMAL; POLYCHROMASIA 1+ (0-0)
[2017-07-16 10:34] LABS: ADD UMIC YES; UR ASCORBIC ACID NEGATIVE (NEGATIVE); UR BILIRUBIN (Dip) NEGATIVE (NEGATIVE); UR BLOOD (Dip) 1+ mg/dL (NEGATIVE); UR CLARITY CLEAR (CLEAR); UR COLOR YELLOW (YELLOW); UR GLUCOSE (Dip) NEGATIVE (NEGATIVE); UR KETONES (Dip) NEGATIVE (NEGATIVE); UR LEUKOCYTE ESTERASE (Dip) NEGATIVE Leu/ul (NEGATIVE); UR MUCUS FEW /HPF (NONE SEEN); UR NITRITE (Dip) NEGATIVE (NEGATIVE); UR RBC 13 /HPF (0-5); UR SPECIFIC GRAVITY (Dip) 1.023 (1.003-1.030); UR TOTAL PROTEIN (Dip) 1+ mg/dl (NEGATIVE); UR UROBILINOGEN (Dip) 2+ mg/dL (NEGATIVE)
[2017-07-16] MEDS: SOD CHLORIDE 0.9% 1,000 ML IV SCH (12:17)
--- NOTE | 2017-07-16 13:50 | PN ---
Date/Time of Note Date/Time of Note DATE: 07/16/17 TIME: 13:47 Assessment/Plan VTE Prophylaxis VTE Prophylaxis Intervention: SCD's Lines/Catheters IV Catheter Type (from Nrsg): Peripheral IV Assessment/Plan Assessment/Plan 1. Acute appendicitis s/p lap appy - Patient pain controlled on Toradol - Tolerating regular diet but no BM - Surgery on board and consultation appreciated. 2. MARY ANNE- improving - most likely prerenal - encouraged PO hydration - continue to monitor 3. Asthma - Stable 4. Disposition - Continue monitoring in med/surg - had 102 F fever this am. Will d/c once afebrile >24 hours Subjective 24 Hr Interval Summary Free Text/Dictation Patient febrile overnight and still not had a BM. Tolerating diet well and no c /o worsening pain at surgical site Exam/Review of Systems Vital Signs Vitals Vital Signs Date Time Temp Pulse Resp B/P Pulse Ox O2 Delivery O2 Flow Rate FiO2 07/16/17 13:14 100.8 07/16/17 07:52 73 20 99 Nasal Cannula 2.0 07/16/17 07:34 135/76 07/14/17 23:02 28 Intake and Output 07/15/17 07/15/17 07/16/17 15:00 23:00 07:00 Intake Total 700 ml 950 ml 1700 ml Balance 700 ml 950 ml 1700 ml Exam Constitutional: alert, oriented, well developed, No distress Eyes: EOMI, PERRL, nl sclera Neck: non-tender, supple Respiratory: clear to auscultation, No crackles/rales, No diminished breath sounds, No labored breathing, No wheezing Cardiovascular: regular rate and rhythm, No murmurs/extra sounds, No systolic murmur Gastrointestinal: bowel sounds, soft, mild tenderness RLQ, No distended, No rebound or guarding Musculoskeletal: nl extremities to inspection Extremities: normal pulses Neurological: TEMPORARY OFFICE ASSISTANT II-XII intact, nl mental status, nl speech Results Result Diagram: 07/16/17 0502 07/16/17 0502 Results 24 hrs Laboratory Tests Test 07/16/17 05:02 07/16/17 08:50 White Blood Count 8.5 # Red Blood Count 4.82 Hemoglobin 12.7 L Hematocrit 39.1 L Mean Corpuscular Volume 81.1 L Mean Corpuscular Hemoglobin 26.3 L Mean Corpuscular Hemoglobin Concent 32.5 Red Cell Distribution Width 14.1 Platelet Count 198 Mean Platelet Volume 9.8 Neutrophils % Segmented Neutrophils % (Manual) 55 Band Neutrophils % (Manual) 18 H Lymphocytes % Lymphocytes % (Manual) 14 L Monocytes % Monocytes % (Manual) 9 Eosinophils % Eosinophils % (Manual) 4 Basophils % Nucleated Red Blood Cells % 0.0 Neutrophils # Neutrophils # (Manual) 4.8 Band Neutrophils # 1.5 H Absolute Lymphocytes (Manual) 1.1 Lymphocytes # Monocytes # Absolute Monocytes (Manual) 0.7 Eosinophils # Basophils # Nucleated Red Blood Cells # Platelet Estimate NORMAL Polychromasia 1+ Anisocytosis 1+ Sodium Level 141 Potassium Level 4.4 Chloride Level 109 Carbon Dioxide Level 26 Anion Gap 10 Blood Urea Nitrogen 15 Creatinine 1.29 H Glucose Level 109 Calcium Level 8.1 L Phosphorus Level 1.9 L Magnesium Level 2.1 Albumin 2.9 L Urine Color YELLOW Urine Clarity CLEAR Urine pH 7.0 Urine Specific [place] 1.023 Urine Ketones NEGATIVE Urine Nitrite NEGATIVE Urine Bilirubin NEGATIVE Urine Urobilinogen 2+ H Urine Leukocyte Esterase NEGATIVE Urine Microscopic RBC 13 H Urine Microscopic WBC 2 Urine Mucus FEW A Urine Hemoglobin 1+ H Urine Glucose NEGATIVE Urine Total Protein 1+ H Medications Medications Current Medications Ondansetron HCl (Zofran Inj) 4 mg Q6H PRN IV NAUSEA AND/OR VOMITING; Start at 18:00 Acetaminophen (Tylenol Tab) 650 mg Q6H PRN PO PAIN LEVEL 1-3 OR FEVER Last administered on 07/16/17t 13:18; Admin Dose 650 MG; Start 07/14/17 at 18:00 Acetaminophen/ Hydrocodone Bitart ([place] (5/325)) 1 tab Q6H PRN PO MODERATE PAIN LEVEL 4-6; Start 07/14/17 at 18:00 Acetaminophen/ Hydrocodone Bitart ([place] (5/325)) 2 tab Q6H PRN PO SEVERE PAIN LEVEL 7-10; Start 07/14/17 at 18:00 Morphine Sulfate (morphine) 2 mg Q4H PRN IV SEVERE PAIN LEVEL 7-10; Start at 18:00 Docusate Sodium (Colace) 100 mg Q12H PRN PO CONSTIPATION; Start 07/14/17 at 18 :00 Magnesium Hydroxide (Milk Of Mag) 30 ml DAILY PRN PO CONSTIPATION; Start 07/14 at 18:00 Famotidine (Pepcid) 20 mg DAILY PO Last administered on 07/16/17 08:43; Admin Dose 20 MG; Start 07/15/17 at 09:00 Morphine Sulfate (morphine) 2 mg Q2H PRN IV PAIN LEVEL 6-10; Start 07/14/17 at 22:00 Oxycodone/ Acetaminophen (Percocet (5/ 325)) 1 tab Q6H PRN PO PAIN LEVEL 6-10; Start 07/14/17 at 22:00 Acetaminophen (Tylenol Tab) 650 mg Q6H PRN PO PAIN AND OR ELEVATED TEMP Last administered on 07/15/17 18:22; Admin Dose 650 MG; Start 07/14/17 at 22:00 Ondansetron HCl (Zofran Inj) 4 mg Q6H PRN IV NAUSEA AND/OR VOMITING; Start at 22:00 Enoxaparin Sodium (Lovenox) 40 mg DAILY@07 SC Last administered on 07/16/17 06:13; Admin Dose 40 MG; Start 07/15/17 at 07:00 Ketorolac Tromethamine (Toradol) 15 mg Q6H IV Last administered on 07/16/17 12:17; Admin Dose 15 MG; Start 07/15/17 at 00:00; Stop 07/16/17 at 18:01 Ibuprofen 600 mg 600 mg Q6H PRN PO PAIN LEVEL 1-5; Start 07/16/17 at 18:02 Sodium Chloride (NS) 1,000 ml @ 100 mls/hr Q10H IV Last administered on 12:17; Admin Dose 100 MLS/HR; Start 07/16/17 at 11:30 ERIBERTO SAGASTUME MD Jul 16, 2017 13:50
[2017-07-16 14:00] VITALS: BP 117/63; RESP 18
--- NOTE | 2017-07-16 14:42 | RADRPT ---
PROCEDURE: XR Chest. CLINICAL INDICATION: Fever TECHNIQUE: AP and lateral view of the chest were obtained. COMPARISON: 07/14/2017 FINDINGS: Cardiac/vascular structures: Normal cardiomediastinal silhouette. Pulmonary: Left lower lobe airspace opacity. Small left pleural effusion. No evidence of pneumothor ax. Osseous structures: Normal Soft tissues: Normal IMPRESSION: Left lower lobe consolidation consistent with pneumonia. Small left pleural effusion. RPTAT:AAJJ Physician Abel Date Time Electronically viewed and signed by Physician Abel on 07/16/2017 14:41 /
[2017-07-16] MEDS ORDERED: IBUPROFEN 600 MG TAB PO PRN (16:02)
[2017-07-16] MEDS ORDERED: AZITHROMYCIN 500MG/NS (PMX) 250 ML IVPB SCH (18:30)
[2017-07-16 21:14] VITALS: BP 135/82; RESP 18
[2017-07-17] MEDS: SOD CHLORIDE 0.9% 1,000 ML IV SCH ×4 (00:24→19:39)
[2017-07-17] MEDS: ACETAMINOPHEN 325 MG TAB PO PRN ×3 (02:38→17:47)
[2017-07-17] MEDS: ALBUTEROL 0.083% (NEB) 2.5 MG/3 ML AMP HHN PRN (02:54)
[2017-07-17 03:16] VITALS: BP 135/69; RESP 16
[2017-07-17 05:50] LABS: BASOPHILS % 0.2 % (0.0-2.0); EOSINOPHILS # 0.1 10^3/ul (0.0-0.5); EOSINOPHILS % 1.4 % (0.0-7.0); HEMATOCRIT 35.1 % (42.0-52.0); HEMOGLOBIN 12.1 g/dl (14.0-18.0); LYMPHOCYTES # 1.4 10^3/ul (0.8-2.9); LYMPHOCYTES % 15.7 % (15.0-51.0); MEAN CORPUSCULAR HEMOGLOBIN 27.4 pg (29.0-33.0); MEAN CORPUSCULAR HGB CONC 34.5 g/dl (32.0-37.0); MEAN CORPUSCULAR VOLUME 79.4 fl (82.0-101.0); MEAN PLATELET VOLUME 9.8 fl (7.4-10.4); MONOCYTE # 0.6 10^3/ul (0.3-0.9); MONOCYTES % 6.9 % (0.0-11.0); NEUTROPHIL # 6.8 10^3/ul (1.6-7.5); NEUTROPHILS % 75.5 % (39.0-77.0); PLATELET COUNT 210 10^3/UL (140-415); POSITIVE DIFF @See below; RED BLOOD COUNT 4.42 10^6/ul (4.70-6.10); RED CELL DISTRIBUTION WIDTH 13.9 % (11.5-14.5)
[2017-07-17 06:12] LABS: ALBUMIN 2.8 g/dl (3.3-4.9); CALCIUM 8.3 mg/dl (8.4-10.2); CREATININE 1.19 mg/dl (0.61-1.24); MAGNESIUM 1.8 mg/dl (1.7-2.5); POTASSIUM 3.9 mmol/L (3.5-5.1)
--- NOTE | 2017-07-17 07:33 | PN ---
Date/Time of Note Date/Time of Note DATE: 07/17/17 TIME: 07:32 Assessment/Plan Lines/Catheters IV Catheter Type (from Nrsg): Peripheral IV Assessment/Plan Chief Complaint/Hosp Course Postop day 3 status post lap appendectomy UBC within normal limits but still spiking fevers Continue IV antibiotics until afebrile 24 hours If fevers persist would recommend a CT scan in few days Dr. Leigh to cover in my absence until Problems: Subjective 24 Hr Interval Summary Constitutional: BM, ambulates, other (Patient still with febrile episodes. Most recently last night to 102.9) Pain Control: well controlled Exam/Review of Systems Vital Signs Vitals Vital Signs Date Time Temp Pulse Resp B/P Pulse Ox O2 Delivery O2 Flow Rate FiO2 07/17/17 03:16 102.9 76 16 135/69 96 07/17/17 02:54 21 07/16/17 16:19 2.0 07/16/17 07:52 Nasal Cannula Intake and Output 07/16/17 07/16/17 07/17/17 15:00 23:00 07:00 Intake Total 450 ml 1850 ml 1470 ml Balance 450 ml 1850 ml 1470 ml Exam Constitutional: oriented, well developed Psych: no complaints Head: normocephalic ENMT: nl external ears & nose Neck: supple Respiratory: clear to auscultation Cardiovascular: regular rate and rhythm Gastrointestinal: other (Mildly distended), soft Results Result Diagram: 07/17/17 0448 07/17/17 0448 JOSÉ ANTONIO TIWARI MD Jul 17, 2017 07:33
[2017-07-17 08:27] VITALS: BP 124/66; RESP 19
[2017-07-17] MEDS: FAMOTIDINE 20 MG TAB PO SCH (08:41)
[2017-07-17] MEDS: ENOXAPARIN 40 MG/0.4 ML SYG SC SCH (08:41)
[2017-07-17] MEDS ORDERED: VANCOMYCIN IV PER PHARMACY XX SCH (10:30)
--- NOTE | 2017-07-17 10:30 | PN ---
Date/Time of Note Date/Time of Note DATE: 07/17/17 TIME: 10:30 Assessment/Plan VTE Prophylaxis VTE Prophylaxis Intervention: SCD's Lines/Catheters IV Catheter Type (from Nrsg): Peripheral IV Assessment/Plan Assessment/Plan 1. Acute appendicitis s/p lap appy POD#3 - Patient pain controlled on Toradol - Has diminished PO intake but tolerating fluids. but no BM but passing gas - Surgery on board and consultation appreciated. If still spiking fevers or abdominal changes on exam, plan to repeat CT scan abdomen - small blister at surgical incision site RLQ, will keep area clean and dry. Place bacitracin on area 2. MARY ANNE- resolved - most likely prerenal - encouraged PO hydration - continue to monitor 3. Asthma - Stable 4. PNA on CXR - LLL PNA - Encouraged IS - Changed to Vanc and Cefepime for broad spectrum coverage since still spiking fevers. Will deescalate when remains afebrile for 24 hours 5. Disposition - Continue monitoring in med/surg - deescalate antibiotics once afebrile for 24 hours - if no improvement in next few days (/tue), repeat CT scan of abdomen per Surgery recommendations Subjective 24 Hr Interval Summary Free Text/Dictation Patient still spiking fevers and has diminished appetite. Trying to keep well hydrated. No BM but passing gas. Exam/Review of Systems Vital Signs Vitals Vital Signs Date Time Temp Pulse Resp B/P Pulse Ox O2 Delivery O2 Flow Rate FiO2 07/17/17 08:27 100.7 61 19 124/66 96 07/17/17 02:54 21 07/16/17 16:19 2.0 07/16/17 07:52 Nasal Cannula Intake and Output 07/16/17 07/16/17 07/17/17 15:00 23:00 07:00 Intake Total 450 ml 1850 ml 1470 ml Balance 450 ml 1850 ml 1470 ml Exam Constitutional: alert, oriented, well developed, No distress Eyes: EOMI, PERRL, nl sclera Neck: non-tender, supple Respiratory: clear to auscultation, No crackles/rales, No diminished breath sounds, No labored breathing, No wheezing Cardiovascular: regular rate and rhythm, No murmurs/extra sounds, No systolic murmur Gastrointestinal: bowel sounds, soft, nontender, Non distended, No rebound or guarding, dressings intact, small blistering area RLQ incision site. Musculoskeletal: nl extremities to inspection Extremities: normal pulses Neurological: [employer] II-XII intact, nl mental status, nl speech Results Result Diagram: 07/17/178 07/17/178 Results 24 hrs Laboratory Tests Test 07/17/17 04:48 White Blood Count 9.0 Red Blood Count 4.42 L Hemoglobin 12.1 L Hematocrit 35.1 L Mean Corpuscular Volume 79.4 L Mean Corpuscular Hemoglobin 27.4 L Mean Corpuscular Hemoglobin Concent 34.5 Red Cell Distribution Width 13.9 Platelet Count 210 Mean Platelet Volume 9.8 Neutrophils % 75.5 Lymphocytes % 15.7 Monocytes % 6.9 Eosinophils % 1.4 Basophils % 0.2 Nucleated Red Blood Cells % 0.0 Neutrophils # 6.8 Lymphocytes # 1.4 Monocytes # 0.6 Eosinophils # 0.1 Basophils # 0.0 Nucleated Red Blood Cells # 0.0 Sodium Level 138 Potassium Level 3.9 Chloride Level 108 Carbon Dioxide Level 24 Anion Gap 10 Blood Urea Nitrogen 10 Creatinine 1.19 Glucose Level 114 Calcium Level 8.3 L Phosphorus Level 2.0 L Magnesium Level 1.8 Albumin 2.8 L Medications Medications Current Medications Acetaminophen (Tylenol Tab) 650 mg Q6H PRN PO PAIN LEVEL 1-3 OR FEVER Last administered on 07/17/17 09:35; Admin Dose 650 MG; Start 07/14/17 at 18:00 Acetaminophen/ Hydrocodone Bitart ([place] (5/325)) 1 tab Q6H PRN PO MODERATE PAIN LEVEL 4-6; Start 07/14/17 at 18:00 Acetaminophen/ Hydrocodone Bitart ([place] (5/325)) 2 tab Q6H PRN PO SEVERE PAIN LEVEL 7-10; Start 07/14/17 at 18:00 Morphine Sulfate (morphine) 2 mg Q4H PRN IV SEVERE PAIN LEVEL 7-10; Start at 18:00 Docusate Sodium (Colace) 100 mg Q12H PRN PO CONSTIPATION; Start 07/14/17 at 18 :00 Magnesium Hydroxide (Milk Of Mag) 30 ml DAILY PRN PO CONSTIPATION; Start 07/14 at 18:00 Famotidine (Pepcid) 20 mg DAILY PO Last administered on 07/17/17 08:41; Admin Dose 20 MG; Start 07/15/17 at 09:00 Morphine Sulfate (morphine) 2 mg Q2H PRN IV PAIN LEVEL 6-10; Start 07/14/17 at 22:00 Oxycodone/ Acetaminophen (Percocet (5/ 325)) 1 tab Q6H PRN PO PAIN LEVEL 6-10; Start 07/14/17 at 22:00 Acetaminophen (Tylenol Tab) 650 mg Q6H PRN PO PAIN AND OR ELEVATED TEMP Last administered on 07/15/17 18:22; Admin Dose 650 MG; Start 07/14/17 at 22:00 Ondansetron HCl (Zofran Inj) 4 mg Q6H PRN IV NAUSEA AND/OR VOMITING; Start at 22:00 Enoxaparin Sodium (Lovenox) 40 mg DAILY@07 SC Last administered on 07/17/17 08:41; Admin Dose 40 MG; Start 07/15/17 at 07:00 Ibuprofen 600 mg 600 mg Q6H PRN PO PAIN LEVEL 1-5; Start 07/16/17 at 18:02 Sodium Chloride 1,000 ml @ 100 mls/hr Q10H IV Last administered on 07/17/17 00:24; Admin Dose 100 MLS/HR; Start 07/16/17 at 11:30 Cefepime HCl (Maxipime 1gm/50 ml (Pmx)) 50 ml @ 100 mls/hr Q12 IVPB ; Start at 10:30 ERIBERTO SAGASTUME MD Jul 17, 2017 10:30
[2017-07-17] MEDS: CEFEPIME 1GM/50 ML (PMX) 50 ML IVPB SCH ×2 (11:06→20:57)
[2017-07-17] MEDS ORDERED: VANCOMYCIN 2 GM in SOD CHLORIDE 0.9% 500 ML IVPB SCH (12:00)
[2017-07-17 14:38] VITALS: BP 130/74; RESP 18
[2017-07-17] MEDS: BACITRACIN 0.9 GM OINT TOP SCH ×2 (14:59→20:58)
[2017-07-17] MEDS: HYDROCODONE/APAP (5/325) TAB PO PRN (19:54)
[2017-07-17 20:00] VITALS: BP 131/68; RESP 19
[2017-07-17] MEDS: VANCOMYCIN 1.5 GM in SOD CHLORIDE 0.9% 250 ML IVPB SCH (22:36)
[2017-07-18 02:00] VITALS: BP 130/77; RESP 18
[2017-07-18] MEDS: HYDROCODONE/APAP (5/325) TAB PO PRN ×3 (04:51→20:04)
[2017-07-18 07:30] LABS: HEMATOCRIT 36.4 % (42.0-52.0); HEMOGLOBIN 12.3 g/dl (14.0-18.0); MEAN CORPUSCULAR HEMOGLOBIN 26.7 pg (29.0-33.0); MEAN CORPUSCULAR HGB CONC 33.8 g/dl (32.0-37.0); MEAN PLATELET VOLUME 9.8 fl (7.4-10.4); PLATELET COUNT 255 10^3/UL (140-415); POSITIVE DIFF @See below; RED BLOOD COUNT 4.61 10^6/ul (4.70-6.10); WHITE BLOOD COUNT 10.4 10^3/ul (4.8-10.8)
[2017-07-18 07:40] LABS: CALCIUM 8.2 mg/dl (8.4-10.2); CREATININE 1.05 mg/dl (0.61-1.24); MAGNESIUM 1.8 mg/dl (1.7-2.5); PHOSPHORUS 2.8 mg/dl (2.5-4.9); POTASSIUM 3.9 mmol/L (3.5-5.1)
[2017-07-18 08:26] VITALS: BP 110/60; RESP 20
[2017-07-18] MEDS: ENOXAPARIN 40 MG/0.4 ML SYG SC SCH (09:02)
[2017-07-18] MEDS: CEFEPIME 1GM/50 ML (PMX) 50 ML IVPB SCH ×2 (09:04→20:26)
[2017-07-18] MEDS: FAMOTIDINE 20 MG TAB PO SCH (09:04)
[2017-07-18] MEDS: BACITRACIN 0.9 GM OINT TOP SCH ×2 (09:11→20:31)
[2017-07-18 09:38] LABS: BASOPHILS % (M) 1 % (0-2); MONOCYTES % (M) 9 % (0-11); PLATELET ESTIMATE NORMAL; REACTIVE LYMPHOCYTES% (M) 5 % (0-0)
[2017-07-18] MEDS: VANCOMYCIN 1.5 GM in SOD CHLORIDE 0.9% 250 ML IVPB SCH (10:53)
[2017-07-18] MEDS: SOD CHLORIDE 0.9% 1,000 ML IV SCH (10:54)
[2017-07-18] MEDS: metroNIDAZOLE 500 MG/NS (PMX) 100 ML IVPB SCH ×2 (13:38→22:04)
[2017-07-18] MEDS: ACETAMINOPHEN 325 MG TAB PO PRN ×2 (13:38→22:12)
[2017-07-18 14:50] VITALS: BP 127/59; RESP 20
--- NOTE | 2017-07-18 16:42 | PN ---
Date/Time of Note Date/Time of Note DATE: 07/18/17 TIME: 16:42 Assessment/Plan VTE Prophylaxis VTE Prophylaxis Intervention: SCD's Lines/Catheters IV Catheter Type (from Nrs): Peripheral IV Assessment/Plan Chief Complaint/Hosp Course Subjective Still has moderate abdominal pain and fever Objective Physical exam General: Patient is laying in bed and answers questions appropriately Mentation: Patient is alert and oriented 4, Head: Normocephalic atraumatic Eyes: EOMI, pupils reactive to light Neck: Supple, nontender, midline Respiratory: Clear to auscultation bilaterally Cardiovascular: regular rate, no obvious murmurs Gastrointestinal: midly tender to palpation, bowel sounds heard. Neurological: Moves all extremities spontaneously Skin: No new skin lesions A/P 1. Acute appendicitis s/p lap appy POD#4 - Patient pain controlled on Toradol - Has diminished PO intake but tolerating fluids. but no BM but passing gas - Surgery on board and consultation appreciated. If still spiking fevers or abdominal changes on exam, plan to repeat CT scan abdomen tomorrow - small blister at surgical incision site RLQ, will keep area clean and dry. Place bacitracin on area 2. MARY ANNE- resolved - most likely prerenal - encouraged PO hydration - continue to monitor 3. Asthma - Stable 4. PNA on CXR - LLL PNA - Encouraged IS - Changed to Vanc and Cefepime for broad spectrum coverage since still spiking fevers. Will deescalate when remains afebrile for 24 hours 5. Disposition - Continue monitoring in med/surg - deescalate antibiotics once afebrile for 24 hours - if no improvement in next few days (/tue), repeat CT scan of abdomen per Surgery recommendations Problems: Exam/Review of Systems Vital Signs Vitals Vital Signs Date Time Temp Pulse Resp B/P Pulse Ox O2 Delivery O2 Flow Rate FiO2 07/18/17 14:50 102.8 63 20 127/59 98 07/17/17 02:54 21 07/16/17 16:19 2.0 07/16/17 07:52 Nasal Cannula Intake and Output 07/17/17 07/17/17 07/18/17 15:00 23:00 07:00 Intake Total 600 ml 1890 ml 1500 ml Balance 600 ml 1890 ml 1500 ml Results Result Diagram: 07/18/1724 07/18/17 0624 Results 24 hrs Laboratory Tests Test 07/18/17 06:24 White Blood Count 10.4 Red Blood Count 4.61 L Hemoglobin 12.3 L Hematocrit 36.4 L Mean Corpuscular Volume 79.0 L Mean Corpuscular Hemoglobin 26.7 L Mean Corpuscular Hemoglobin Concent 33.8 Red Cell Distribution Width 14.0 Platelet Count 255 # Mean Platelet Volume 9.8 Neutrophils % Segmented Neutrophils % (Manual) 57 Band Neutrophils % (Manual) 6 H Lymphocytes % Lymphocytes % (Manual) 22 Reactive Lymphocytes % (Manual) 5 H Monocytes % Monocytes % (Manual) 9 Eosinophils % Basophils % Basophils % (Manual) 1 Nucleated Red Blood Cells % 0.0 Neutrophils # Neutrophils # (Manual) 6.0 Band Neutrophils # 0.6 Absolute Lymphocytes (Manual) 2.2 Lymphocytes # Reactive Lymphocytes # 0.5 H Monocytes # Absolute Monocytes (Manual) 0.9 Eosinophils # Basophils # Basophils # (Manual) 0.1 H Nucleated Red Blood Cells # Platelet Estimate NORMAL Sodium Level 137 Potassium Level 3.9 Chloride Level 104 Carbon Dioxide Level 23 Anion Gap 14 Blood Urea Nitrogen 9 Creatinine 1.05 Glucose Level 115 Calcium Level 8.2 L Phosphorus Level 2.8 Magnesium Level 1.8 Albumin 3.0 L Medications Medications Current Medications Acetaminophen (Tylenol Tab) 650 mg Q6H PRN PO PAIN LEVEL 1-3 OR FEVER Last administered on 07/17/17 17:47; Admin Dose 650 MG; Start 07/14/17 at 18:00 Acetaminophen/ Hydrocodone Bitart ([place] (5/325)) 1 tab Q6H PRN PO MODERATE PAIN LEVEL 4-6 Last administered on 07/18/17 13:38; Admin Dose 1 TAB; Start 07/14/17 at 18:00 Acetaminophen/ Hydrocodone Bitart ([place] (5/325)) 2 tab Q6H PRN PO SEVERE PAIN LEVEL 7-10 Last administered on 07/18/17 04:51; Admin Dose 2 TAB; Start 07/14 at 18:00 Morphine Sulfate (morphine) 2 mg Q4H PRN IV SEVERE PAIN LEVEL 7-10; Start at 18:00 Docusate Sodium (Colace) 100 mg Q12H PRN PO CONSTIPATION; Start 07/14/17 at 18 :00 Magnesium Hydroxide (Milk Of Mag) 30 ml DAILY PRN PO CONSTIPATION; Start 07/14 at 18:00 Famotidine (Pepcid) 20 mg DAILY PO Last administered on 07/18/17 09:04; Admin Dose 20 MG; Start 07/15/17 at 09:00 Morphine Sulfate (morphine) 2 mg Q2H PRN IV PAIN LEVEL 6-10; Start 07/14/17 at 22:00 Oxycodone/ Acetaminophen (Percocet (5/ 325)) 1 tab Q6H PRN PO PAIN LEVEL 6-10; Start 07/14/17 at 22:00 Acetaminophen (Tylenol Tab) 650 mg Q6H PRN PO PAIN AND OR ELEVATED TEMP Last administered on 07/18/17 13:38; Admin Dose 650 MG; Start 07/14/17 at 22:00 Ondansetron HCl (Zofran Inj) 4 mg Q6H PRN IV NAUSEA AND/OR VOMITING; Start at 22:00 Enoxaparin Sodium (Lovenox) 40 mg DAILY@07 SC Last administered on 07/18/17 09:02; Admin Dose 40 MG; Start 07/15/17 at 07:00 Ibuprofen 600 mg 600 mg Q6H PRN PO PAIN LEVEL 1-5; Start 07/16/17 at 18:02 Sodium Chloride 1,000 ml @ 75 mls/hr [id number] IV Last administered on 10:54; Admin Dose 75 MLS/HR; Start 07/16/17 at 11:30 Cefepime HCl 50 ml @ 100 mls/hr Q12 IVPB Last administered on 07/18/17 09:04 ; Admin Dose 100 MLS/HR; Start 07/17/17 at 10:30 Vancomycin HCl/ Sodium Chloride (Vancocin/NS) 250 ml @ 83.333 mls/ hr Q12H IVPB Last administered on 07/18/17 10:53; Admin Dose 83.333 MLS/HR; Start at 22:00 Bacitracin (Bacitracin Oint (Ud)) 1 applic BID TOP Last administered on 09:11; Admin Dose 1 APPLIC; Start 07/17/17 at 15:00 Miscellaneous Information 1 ONCE ONCE XX ; Start 07/18/17 at 21:00; Stop at 21:01 Metronidazole (Flagyl 500 Mg (Pmx)) 100 ml @ 100 mls/hr Q8 IVPB Last administered on 07/18/17t 13:38; Admin Dose 100 MLS/HR; Start 07/18/17 at 14: 00 CLAYTON VINES Jul 18, 2017 16:42
[2017-07-18] MEDS: ALBUTEROL/IPRATROPIUM (NEB) 3 ML AMP HHN SCH (19:17)
[2017-07-18 20:00] VITALS: BP 136/80; RESP 18
[2017-07-18] MEDS: VANCOMYCIN 1.75 GM in NS 500 ML IVPB SCH (23:27)
[2017-07-19] MEDS: HYDROCODONE/APAP (5/325) TAB PO PRN (02:50)
[2017-07-19 03:00] VITALS: BP 154/87; RESP 18
[2017-07-19] MEDS: metroNIDAZOLE 500 MG/NS (PMX) 100 ML IVPB SCH ×3 (05:14→21:35)
[2017-07-19] MEDS: SOD CHLORIDE 0.9% 1,000 ML IV SCH ×2 (06:03→11:39)
[2017-07-19] MEDS: ENOXAPARIN 40 MG/0.4 ML SYG SC SCH (06:05)
[2017-07-19 06:52] LABS: BASOPHIL # 0.1 10^3/ul (0.0-0.1); BASOPHILS % 0.4 % (0.0-2.0); EOSINOPHILS # 0.4 10^3/ul (0.0-0.5); EOSINOPHILS % 3.6 % (0.0-7.0); HEMATOCRIT 37.9 % (42.0-52.0); HEMOGLOBIN 12.6 g/dl (14.0-18.0); LYMPHOCYTES # 2.3 10^3/ul (0.8-2.9); LYMPHOCYTES % 18.8 % (15.0-51.0); MEAN CORPUSCULAR HEMOGLOBIN 26.1 pg (29.0-33.0); MEAN CORPUSCULAR HGB CONC 33.2 g/dl (32.0-37.0); MEAN CORPUSCULAR VOLUME 78.5 fl (82.0-101.0); MEAN PLATELET VOLUME 9.5 fl (7.4-10.4); MONOCYTE # 1.5 10^3/ul (0.3-0.9); MONOCYTES % 12.2 % (0.0-11.0); NEUTROPHIL # 7.8 10^3/ul (1.6-7.5); NEUTROPHILS % 64.2 % (39.0-77.0); PLATELET COUNT 289 10^3/UL (140-415); RED BLOOD COUNT 4.83 10^6/ul (4.70-6.10); RED CELL DISTRIBUTION WIDTH 13.5 % (11.5-14.5); WHITE BLOOD COUNT 12.1 10^3/ul (4.8-10.8)
[2017-07-19 07:25] VITALS: BP 137/81; RESP 16
[2017-07-19] MEDS: ALBUTEROL/IPRATROPIUM (NEB) 3 ML AMP HHN SCH ×3 (07:30→19:12)
[2017-07-19 07:37] LABS: CALCIUM 8.3 mg/dl (8.4-10.2); CREATININE 1.03 mg/dl (0.61-1.24); MAGNESIUM 1.8 mg/dl (1.7-2.5); PHOSPHORUS 4.5 mg/dl (2.5-4.9); POTASSIUM 3.9 mmol/L (3.5-5.1)
[2017-07-19] MEDS: FAMOTIDINE 20 MG TAB PO SCH (08:31)
[2017-07-19] MEDS: CEFEPIME 1GM/50 ML (PMX) 50 ML IVPB SCH ×2 (08:31→20:46)
[2017-07-19] MEDS: ACETAMINOPHEN 325 MG TAB PO PRN ×2 (08:35→17:17)
[2017-07-19] MEDS: VANCOMYCIN 1.75 GM in NS 500 ML IVPB SCH ×2 (09:48→23:14)
[2017-07-19] MEDS: BACITRACIN 0.9 GM OINT TOP SCH ×2 (10:30→20:46)
--- NOTE | 2017-07-19 10:44 | RADRPT ---
PROCEDURE: XR Chest. CLINICAL INDICATION: Fever and shortness of breath. Follow up pneumonia. TECHNIQUE: Single portable view of the chest was obtained. COMPARISON: 07/16/2017 and 07/14/2017 FINDINGS: Cardiac/vascular structures: Normal cardiomediastinal silhouette. Pulmonary: Left lower lobe airspace opacity. Small left pleural effusion. No evidence of pneumothora x. Osseous structures: Normal Soft tissues: Normal IMPRESSION: Left lower lobe consolidation consistent with pneumonia, unchanged. Small left pleural effusion, unchanged. Recommend follow-up radiograph 2 weeks after completing antibiotics. RPTAT:AAJJ Physician Abel Date Time Electronically viewed and signed by Tracee Frances Physician on 07/19/2017 10:44 /
[2017-07-19] MEDS ORDERED: BARIUM SULF 2% 450 ML BTL (BERRY SMOOTHIE) PO ONE (12:00)
[2017-07-19] MEDS ORDERED: SOD CHLORIDE 0.9% 100 ML ONE (12:59)
[2017-07-19] MEDS ORDERED: IOHEXOL 300MG/ML 150 ML BTL ONE (12:59)
[2017-07-19 14:03] VITALS: BP 136/66; RESP 16
--- NOTE | 2017-07-19 15:13 | RADRPT ---
PROCEDURE: CT ABDOMEN AND PELVIS WITH IV CONTRAST. CLINICAL INDICATION: Abdominal pain. Status post appendectomy. Fevers TECHNIQUE: CT scan of the abdomen and pelvis without contrast was performed on a multidetector hig h-resolution CT scanner following the use of IV contrast. 100 cc Omnipaque-300 was administered. Cor onal and sagittal reformatted images were obtained from the axial source images. Images were reviewe d on a high-resolution PACS workstation. The total exam CTDI equals 19.1 mGy and the total exam DLP equals 1301.3 mGy-cm. One or more of the following dose reduction techniques were used: Automated exposure control. Adjustment of the mA and/or kV according to patient size. Use of iterative reconstruction technique. DICOM images are available. COMPARISON: CT 07/14/2017 FINDINGS: CT abdomen: Bilateral lower lobe atelectasis is noted as well as small bilateral pleural effusions. The heart si ze is enlarged. There is no significant pericardial effusion. Hepatic morphology is within normal limits. No gross masses or lesions. Gallbladder is unremarkable. No evidence of intrahepatic or extrahepatic dilatation. The spleen and pancreas are within normal limits. Both adrenal glands are within normal limits. Both kidneys are in normal anatomic position. No evidence of obstruction or hydronephrosis. The visualized GI tract demonstrates normal caliber loops of small large bowel. No evidence of bowel obstruction. There is a collection of fluid in the several foci of air which is not completely wall ed off at this time, measuring 5.7 x 2.7 cm within the right lower quadrant adjacent to the appendec jason clips, which may represent an early developing abscess. There is also a small focal area of fat stranding and free air measuring 2.0 cm within the left anterior abdomen, containing a linear hyper density measuring 1.0 cm, of uncertain clinical significance. This is seen on image number [id number]. The aorta is unremarkable. There is no significant retroperitoneal lymphadenopathy. CT pelvis: The bladder is within normal limits. Prostate is normal size. The rectosigmoid colon demonstrate div erticulosis. No significant pelvic lymphadenopathy. Trace amount of free fluid within pelvis. The visualized osseous structures, appears to be within normal limits. IMPRESSION: 1. STATUS POST APPENDECTOMY. THERE IS A COLLECTION OF FLUID, CONTAINING SEVERAL FOCI OF AIR WITHIN T HE RIGHT LOWER QUADRANT ADJACENT TO THE APPENDECTOMY SURGICAL CLIPS, MEASURING 5.7 X 2.7 CM, WHICH I S NOT COMPLETELY WALLED OFF AT THIS TIME. FINDINGS MAY REPRESENT EARLY DEVELOPING ABSCESS. 2. LINEAR 1.0 CM HYPERDENSITY WHICH MAY REPRESENT A SURGICAL CLIP, WITH SURROUNDING FAT STRANDING AN D SMALL FOCI OF AIR WITHIN THE ANTERIOR LEFT ABDOMEN, SEEN ON IMAGE NUMBER [id number], OF UNCERTAIN CLINICA L SIGNIFICANCE. CORRELATE WITH CLINICAL HISTORY. THIS IS NEW SINCE PRIOR STUDY. 3. No evidence of bowel obstruction. Fluid-filled loops of small bowel suggestive of mild gastroent eritis. 4. Bilateral lower lobe atelectasis and small pleural effusions. RPTAT: AAPP Physician Hailee Date Time Electronically viewed and signed by Physician Hailee on 07/19/2017 15:13 ANDREIA/
--- NOTE | 2017-07-19 16:15 | PN ---
Date/Time of Note Date/Time of Note DATE: 07/19/17 TIME: 16:11 Assessment/Plan VTE Prophylaxis VTE Prophylaxis Intervention: SCD's Lines/Catheters IV Catheter Type (from Nrsg): Peripheral IV Assessment/Plan Chief Complaint/Hosp Course Subjective 12.18 Still has moderate abdominal pain and fever 12.19 abdominal pain has improved Objective Physical exam General: Patient is laying in bed and answers questions appropriately Mentation: Patient is alert and oriented 4, Head: Normocephalic atraumatic Eyes: EOMI, pupils reactive to light Neck: Supple, nontender, midline Respiratory: Clear to auscultation bilaterally Cardiovascular: regular rate, no obvious murmurs Gastrointestinal: mildly tender to palpation, bowel sounds heard. Neurological: Moves all extremities spontaneously Skin: No new skin lesions A/P Acute appendicitis s/p lap appy POD#5 - Patient pain controlled on Toradol, opiates - still pain/fever, ordered CT scan, shows possible early abscess -Dr. Leigh, covering for Dr. Cortez notified, will see patient, keeping NPO -continue broad spectrum antibiotics MARY ANNE- resolved - most likely prerenal - encouraged PO hydration - continue to monitor Asthma - Stable PNA on CXR - LLL PNA - Encouraged IS - continue ABX Disposition - Continue monitoring in med/surg - NPO until surgery sees patient Problems: Exam/Review of Systems Vital Signs Vitals Vital Signs Date Time Temp Pulse Resp B/P Pulse Ox O2 Delivery O2 Flow Rate FiO2 07/19/17 14:03 98.9 60 16 136/66 98 07/19/17 13:25 21 07/16/17 16:19 2.0 07/16/17 07:52 Nasal Cannula Intake and Output 07/18/17 07/18/17 07/19/17 15:00 23:00 07:00 Intake Total 1300 ml 1320 ml 2030 ml Balance 1300 ml 1320 ml 2030 ml Results Result Diagram: 07/19/17 0546 07/19/17 0546 Results 24 hrs Laboratory Tests Test 07/18/17 21:00 07/19/17 05:46 Vancomycin Level Trough 8.2 L White Blood Count 12.1 H Red Blood Count 4.83 Hemoglobin 12.6 L Hematocrit 37.9 L Mean Corpuscular Volume 78.5 L Mean Corpuscular Hemoglobin 26.1 L Mean Corpuscular Hemoglobin Concent 33.2 Red Cell Distribution Width 13.5 Platelet Count 289 Mean Platelet Volume 9.5 Neutrophils % 64.2 Lymphocytes % 18.8 Monocytes % 12.2 H Eosinophils % 3.6 Basophils % 0.4 Nucleated Red Blood Cells % 0.0 Neutrophils # 7.8 H Lymphocytes # 2.3 Monocytes # 1.5 H Eosinophils # 0.4 Basophils # 0.1 Nucleated Red Blood Cells # 0.0 Sodium Level 137 Potassium Level 3.9 Chloride Level 103 Carbon Dioxide Level 24 Anion Gap 14 Blood Urea Nitrogen 10 Creatinine 1.03 Glucose Level 92 Calcium Level 8.3 L Phosphorus Level 4.5 Magnesium Level 1.8 Medications Medications Current Medications Acetaminophen (Tylenol Tab) 650 mg Q6H PRN PO PAIN LEVEL 1-3 OR FEVER Last administered on 07/19/17 08:35; Admin Dose 650 MG; Start 07/14/17 at 18:00 Acetaminophen/ Hydrocodone Bitart ([place] (5/325)) 1 tab Q6H PRN PO MODERATE PAIN LEVEL 4-6 Last administered on 07/19/17 02:50; Admin Dose 1 TAB; Start 07/14/17 at 18:00 Acetaminophen/ Hydrocodone Bitart ([place] (5/325)) 2 tab Q6H PRN PO SEVERE PAIN LEVEL 7-10 Last administered on 07/18/17 20:04; Admin Dose 2 TAB; Start 07/14 at 18:00 Morphine Sulfate (morphine) 2 mg Q4H PRN IV SEVERE PAIN LEVEL 7-10; Start at 18:00 Docusate Sodium (Colace) 100 mg Q12H PRN PO CONSTIPATION; Start 07/14/17 at 18 :00 Magnesium Hydroxide (Milk Of Mag) 30 ml DAILY PRN PO CONSTIPATION; Start 07/14 at 18:00 Famotidine (Pepcid) 20 mg DAILY PO Last administered on 07/19/17 08:31; Admin Dose 20 MG; Start 07/15/17 at 09:00 Morphine Sulfate (morphine) 2 mg Q2H PRN IV PAIN LEVEL 6-10; Start 07/14/17 at 22:00 Oxycodone/ Acetaminophen (Percocet (5/ 325)) 1 tab Q6H PRN PO PAIN LEVEL 6-10; Start 07/14/17 at 22:00 Acetaminophen (Tylenol Tab) 650 mg Q6H PRN PO PAIN AND OR ELEVATED TEMP Last administered on 07/18/17 13:38; Admin Dose 650 MG; Start 07/14/17 at 22:00 Ondansetron HCl (Zofran Inj) 4 mg Q6H PRN IV NAUSEA AND/OR VOMITING; Start at 22:00 Enoxaparin Sodium (Lovenox) 40 mg DAILY@07 SC Last administered on 07/19/17 06:05; Admin Dose 40 MG; Start 07/15/17 at 07:00 Ibuprofen 600 mg 600 mg Q6H PRN PO PAIN LEVEL 1-5; Start 07/16/17 at 18:02 Sodium Chloride 1,000 ml @ 75 mls/hr [id number] IV Last administered on 06:03; Admin Dose 75 MLS/HR; Start 07/16/17 at 11:30 Cefepime HCl (Maxipime 1gm/50 ml (Pmx)) 50 ml @ 100 mls/hr Q12 IVPB Last administered on 07/19/17 08:31; Admin Dose 100 MLS/HR; Start 07/17/17 at 10: 30 Bacitracin 1 applic 1 applic BID TOP Last administered on 07/19/17 10:30; Admin Dose 1 APPLIC; Start 07/17/17 at 15:00 Metronidazole 100 ml @ 100 mls/hr Q8 IVPB Last administered on 07/19/17 14: 05; Admin Dose 100 MLS/HR; Start 07/18/17 at 14:00 Vancomycin HCl/ Sodium Chloride (Vancocin/NS) 500 ml @ 125 mls/hr Q12H IVPB Last administered on 07/19/17 09:48; Admin Dose 125 MLS/HR; Start 07/18/17 at 22:00 CLAYTON VINES Jul 19, 2017 16:15
[2017-07-19] MEDS: morphine 2 MG INJ IV PRN ×2 (16:30→21:01)
--- NOTE | 2017-07-19 17:00 | PN ---
Date/Time of Note Date/Time of Note DATE: 07/19/17 TIME: 16:56 Assessment/Plan Lines/Catheters IV Catheter Type (from [facility]): Peripheral IV Assessment/Plan Chief Complaint/Hosp Course Coverage for Dr. Liz 1. Abdominal pain, fevers, leukocytosis, and CT finding of fluid collections 2nd intra-abdominal abscess -iv abx -ivf -pain control -ct guided drain > d/w Dr. Petersen > will be placed tomorrow 2. Anemia, stable -monitor 3. BMI 31 -encourage diet and exercise optimization 4. Hypoalbuminemia, multifactorial -eventual diet optimization Thank you, Problems: Subjective 24 Hr Interval Summary Low grade fevers on/off. Min pain. Bowel function. No c/n/v/cp/sob/cough/sz/ rash/bloating/jt swelling/cooper/dizzy. Mild leukocytosis. CT noted with fluid collection. Exam/Review of Systems Vital Signs Vitals Vital Signs Date Time Temp Pulse Resp B/P Pulse Ox O2 Delivery O2 Flow Rate FiO2 07/19/17 14:03 98.9 60 16 136/66 98 07/19/17 13:25 21 07/16/17 16:19 2.0 07/16/17 07:52 Nasal Cannula Intake and Output 07/18/17 07/18/17 07/19/17 15:00 23:00 07:00 Intake Total 1300 ml 1320 ml 2030 ml Balance 1300 ml 1320 ml 2030 ml Exam Constitutional: alert, oriented, other (bmi 31), No distress Psych: nl mood/affect, No anxiety Head: atraumatic, normocephalic Eyes: EOMI, PERRL, nl conjunctiva, No icteric ENMT: mucosa pink and moist, nl external ears & nose, nl lips & teeth Neck: non-tender, supple, No jvd Respiratory: normal air movement, No congested cough, No labored breathing Cardiovascular: regular rate and rhythm, No edema Gastrointestinal: soft, tender, No rebound or guarding Genitourinary - Male: nl penis, nl scrotum Musculoskeletal: nl extremities to inspection, No joint tenderness Extremities: normal pulses, No calf tenderness, No cyanosis Neurological: nl mental status, nl speech, nl strength Skin: nl turgor, No diaphoresis, No rash or lesions Lymph: nl lymph nodes Results Result Diagram: 07/19/17 0546 07/19/17 0546 YESENIA PAN MD Jul 19, 2017 17:00
[2017-07-19 17:44] LABS: INR 1.09; PROTIME 14.3 Sec (11.9-14.9); PT RATIO 1.1
[2017-07-19] MEDS: IBUPROFEN 600 MG TAB PO PRN (18:21)
[2017-07-19 20:00] VITALS: BP 135/69; RESP 20
[2017-07-20] MEDS: SOD CHLORIDE 0.9% 1,000 ML IV SCH ×3 (00:59→20:23)
[2017-07-20] MEDS: morphine 2 MG INJ IV PRN ×4 (01:48→20:33)
[2017-07-20 02:00] VITALS: BP 140/86; RESP 16
[2017-07-20 06:08] LABS: BASOPHIL # 0.1 10^3/ul (0.0-0.1); BASOPHILS % 0.6 % (0.0-2.0); EOSINOPHILS # 0.5 10^3/ul (0.0-0.5); EOSINOPHILS % 5.2 % (0.0-7.0); HEMATOCRIT 37.9 % (42.0-52.0); HEMOGLOBIN 12.7 g/dl (14.0-18.0); LYMPHOCYTES # 2.6 10^3/ul (0.8-2.9); LYMPHOCYTES % 24.8 % (15.0-51.0); MEAN CORPUSCULAR HEMOGLOBIN 26.4 pg (29.0-33.0); MEAN CORPUSCULAR HGB CONC 33.5 g/dl (32.0-37.0); MEAN CORPUSCULAR VOLUME 78.8 fl (82.0-101.0); MEAN PLATELET VOLUME 9.4 fl (7.4-10.4); MONOCYTE # 1.3 10^3/ul (0.3-0.9); MONOCYTES % 12.8 % (0.0-11.0); NEUTROPHIL # 5.7 10^3/ul (1.6-7.5); NEUTROPHILS % 55.2 % (39.0-77.0); PLATELET COUNT 314 10^3/UL (140-415); RED BLOOD COUNT 4.81 10^6/ul (4.70-6.10); RED CELL DISTRIBUTION WIDTH 13.8 % (11.5-14.5); WHITE BLOOD COUNT 10.3 10^3/ul (4.8-10.8)
[2017-07-20] MEDS: metroNIDAZOLE 500 MG/NS (PMX) 100 ML IVPB SCH ×3 (06:11→21:42)
[2017-07-20] MEDS: ENOXAPARIN 40 MG/0.4 ML SYG SC SCH (06:12)
[2017-07-20 06:25] LABS: INR 1.12; PROTIME 14.6 Sec (11.9-14.9); PT RATIO 1.1
[2017-07-20 06:35] LABS: CALCIUM 8.5 mg/dl (8.4-10.2); CREATININE 1.02 mg/dl (0.61-1.24); MAGNESIUM 2.1 mg/dl (1.7-2.5); PHOSPHORUS 4.7 mg/dl (2.5-4.9)
[2017-07-20 07:26] VITALS: BP 136/89; RESP 18
[2017-07-20] MEDS: ALBUTEROL/IPRATROPIUM (NEB) 3 ML AMP HHN SCH ×3 (07:33→19:47)
[2017-07-20] MEDS: CEFEPIME 1GM/50 ML (PMX) 50 ML IVPB SCH ×2 (08:52→20:23)
[2017-07-20] MEDS: BACITRACIN 0.9 GM OINT TOP SCH ×3 (08:52→21:42)
[2017-07-20] MEDS: FAMOTIDINE 20 MG TAB PO SCH ×2 (08:52→09:00)
[2017-07-20] MEDS: VANCOMYCIN 1.75 GM in NS 500 ML IVPB SCH ×2 (11:18→23:04)
--- NOTE | 2017-07-20 11:37 | PN ---
Date/Time of Note Date/Time of Note DATE: 07/20/17 TIME: 11:27 Assessment/Plan Lines/Catheters IV Catheter Type (from Nrsg): Peripheral IV Assessment/Plan Chief Complaint/Hosp Course 1. Abdominal pain, fevers, leukocytosis, and CT finding of fluid collections 2nd intra-abdominal abscess -iv abx -ivf -pain control -ct guided drain > d/w Dr. Petersen >pending placement today 2. Anemia, stable -monitor 3. BMI 31 -encourage diet and exercise optimization 4. Hypoalbuminemia, multifactorial -eventual diet optimization 5. Right groin open blister: -local care with silver cream 6. S/p lap appy 07/14 -IS -ambulate -ice pack to abdominal wall Thank you. Patient seen and examined in collaboration with Dr. Didier Leigh. Problems: Subjective 24 Hr Interval Summary Feels ok. Min temp overnight but no fevers. Pending fluid collection drainage today. Blister to noted to be open and draining. Leukocytosis normalized. + bowel function. No fevers, chills, sob, congested cough, cp, palpitations, cooper, dizziness, n/v/d/dysuria. Exam/Review of Systems Vital Signs Vitals Vital Signs Date Time Temp Pulse Resp B/P Pulse Ox O2 Delivery O2 Flow Rate FiO2 07/20/17 07:35 62 18 97 Nasal Cannula 2.0 07/20/17 07:26 98.3 136/89 07/19/17 13:25 21 Intake and Output 07/19/17 07/19/17 07/20/17 15:00 23:00 07:00 Intake Total 550 ml 1250 ml 1260 ml Output Total 900 ml Balance 550 ml 1250 ml 360 ml Exam Free Text/Dictation Constitutional: alert, oriented No distress Psych: nl mood/affect, No anxiety Head: atraumatic, normocephalic Eyes: EOMI, PERRL, nl conjunctiva, No icteric ENMT: mucosa pink and moist, nl external ears & nose, nl lips & teeth Neck: non-tender, supple, No jvd Respiratory: normal air movement, No congested cough, No labored breathing Cardiovascular: regular rate and rhythm, No edema Gastrointestinal: soft, tender, No rebound or guarding Genitourinary - Male: nl penis, nl scrotum Musculoskeletal: nl extremities to inspection, No joint tenderness Extremities: normal pulses, No calf tenderness, No cyanosis Neurological: nl mental status, nl speech, nl strength Skin: nl turgor, right groin blister opened spontaneously and draining No diaphoresis, No rash or lesions Lymph: nl lymph nodes Results Result Diagram: 07/20/17 0504 07/20/17 0504 MERYL SULLIVAN NP Jul 20, 2017 11:37
[2017-07-20] MEDS: ACETAMINOPHEN 325 MG TAB PO PRN (12:53)
[2017-07-20 14:00] VITALS: BP 123/72; RESP 19
[2017-07-20] MEDS ORDERED: LIDOCAINE 1% (MDV) 20 ML INJ ONE (14:21)
--- NOTE | 2017-07-20 14:30 | PN ---
Date/Time of Note Date/Time of Note DATE: 07/20/17 TIME: 14:29 Assessment/Plan VTE Prophylaxis VTE Prophylaxis Intervention: ambulation Lines/Catheters IV Catheter Type (from Nrsg): Peripheral IV Assessment/Plan Chief Complaint/Hosp Course Subjective 12.18 Still has moderate abdominal pain and fever 12.19 abdominal pain has improved 12.20 mild abdominal pain Objective Physical exam General: Patient is laying in bed and answers questions appropriately Mentation: Patient is alert and oriented 4, Head: Normocephalic atraumatic Eyes: EOMI, pupils reactive to light Neck: Supple, nontender, midline Respiratory: Clear to auscultation bilaterally Cardiovascular: regular rate, no obvious murmurs Gastrointestinal: mildly tender to palpation, bowel sounds heard. Neurological: Moves all extremities spontaneously Skin: No new skin lesions A/P Acute appendicitis s/p lap appy POD#6 - Patient pain controlled on Toradol, opiates - still pain/fever, ordered CT scan, shows possible early abscess -Dr. Leigh, covering for Dr. Cortez notified, will see patient, keeping NPO for IR drainage. -continue broad spectrum antibiotics MARY ANNE- resolved - most likely prerenal - encouraged PO hydration - continue to monitor Asthma - Stable PNA on CXR - LLL PNA - Encouraged IS - continue ABX Disposition - Continue monitoring in med/surg - NPO until IR drains abscess Problems: Exam/Review of Systems Vital Signs Vitals Vital Signs Date Time Temp Pulse Resp B/P Pulse Ox O2 Delivery O2 Flow Rate FiO2 07/20/17 14:00 99.3 07/20/17 07:35 62 18 97 Nasal Cannula 2.0 07/20/17 07:26 136/89 07/19/17 13:25 21 Intake and Output 07/19/17 07/19/17 07/20/17 15:00 23:00 07:00 Intake Total 550 ml 1250 ml 1260 ml Output Total 900 ml Balance 550 ml 1250 ml 360 ml Results Result Diagram: 07/20/17 0504 07/20/17 0504 Results 24 hrs Laboratory Tests Test 07/19/17 16:49 07/20/17 05:04 Prothrombin Time 14.3 14.6 Prothrombin Time Ratio 1.1 1.1 INR International Normalized Ratio 1.09 1.12 White Blood Count 10.3 Red Blood Count 4.81 Hemoglobin 12.7 L Hematocrit 37.9 L Mean Corpuscular Volume 78.8 L Mean Corpuscular Hemoglobin 26.4 L Mean Corpuscular Hemoglobin Concent 33.5 Red Cell Distribution Width 13.8 Platelet Count 314 Mean Platelet Volume 9.4 Neutrophils % 55.2 Lymphocytes % 24.8 Monocytes % 12.8 H Eosinophils % 5.2 Basophils % 0.6 Nucleated Red Blood Cells % 0.0 Neutrophils # 5.7 Lymphocytes # 2.6 Monocytes # 1.3 H Eosinophils # 0.5 Basophils # 0.1 Nucleated Red Blood Cells # 0.0 Sodium Level 141 Potassium Level 4.0 Chloride Level 103 Carbon Dioxide Level 27 Anion Gap 15 Blood Urea Nitrogen 12 Creatinine 1.02 Glucose Level 93 Calcium Level 8.5 Phosphorus Level 4.7 Magnesium Level 2.1 Medications Medications Current Medications Acetaminophen (Tylenol Tab) 650 mg Q6H PRN PO PAIN LEVEL 1-3 OR FEVER Last administered on 07/20/17 12:53; Admin Dose 650 MG; Start 07/14/17 at 18:00 Acetaminophen/ Hydrocodone Bitart ([place] (5/325)) 1 tab Q6H PRN PO MODERATE PAIN LEVEL 4-6 Last administered on 07/19/17 02:50; Admin Dose 1 TAB; Start 07/14/17 at 18:00 Acetaminophen/ Hydrocodone Bitart ([place] (5/325)) 2 tab Q6H PRN PO SEVERE PAIN LEVEL 7-10 Last administered on 07/18/17 20:04; Admin Dose 2 TAB; Start 07/14 at 18:00 Morphine Sulfate (morphine) 2 mg Q4H PRN IV SEVERE PAIN LEVEL 7-10 Last administered on 07/20/17 12:55; Admin Dose 2 MG; Start 07/14/17 at 18:00 Docusate Sodium (Colace) 100 mg Q12H PRN PO CONSTIPATION; Start 07/14/17 at 18 :00 Magnesium Hydroxide (Milk Of Mag) 30 ml DAILY PRN PO CONSTIPATION; Start 07/14 at 18:00 Famotidine (Pepcid) 20 mg DAILY PO Last administered on 07/19/17 08:31; Admin Dose 20 MG; Start 07/15/17 at 09:00 Morphine Sulfate (morphine) 2 mg Q2H PRN IV PAIN LEVEL 6-10; Start 07/14/17 at 22:00 Oxycodone/ Acetaminophen (Percocet (5/ 325)) 1 tab Q6H PRN PO PAIN LEVEL 6-10; Start 07/14/17 at 22:00 Acetaminophen (Tylenol Tab) 650 mg Q6H PRN PO PAIN AND OR ELEVATED TEMP Last administered on 07/18/17 13:38; Admin Dose 650 MG; Start 07/14/17 at 22:00 Ondansetron HCl (Zofran Inj) 4 mg Q6H PRN IV NAUSEA AND/OR VOMITING Last administered on 07/19/17 16:28; Admin Dose 4 MG; Start 07/14/17 at 22:00 Enoxaparin Sodium (Lovenox) 40 mg DAILY@07 SC Last administered on 07/20/17 06:12; Admin Dose 40 MG; Start 07/15/17 at 07:00 Ibuprofen 600 mg 600 mg Q6H PRN PO PAIN LEVEL 1-5 Last administered on 18:21; Admin Dose 600 MG; Start 07/16/17 at 18:02 Sodium Chloride 1,000 ml @ 75 mls/hr [id number] IV Last administered on 06:03; Admin Dose 75 MLS/HR; Start 07/16/17 at 11:30 Cefepime HCl (Maxipime 1gm/50 ml (Pmx)) 50 ml @ 100 mls/hr Q12 IVPB Last administered on 07/20/17 08:52; Admin Dose 100 MLS/HR; Start 07/17/17 at 10: 30 Bacitracin 1 applic 1 applic BID TOP Last administered on 07/19/17 20:46; Admin Dose 1 APPLIC; Start 07/17/17 at 15:00 Metronidazole 100 ml @ 100 mls/hr Q8 IVPB Last administered on 07/20/17 06: 11; Admin Dose 100 MLS/HR; Start 07/18/17 at 14:00 Vancomycin HCl/ Sodium Chloride (Vancocin/NS) 500 ml @ 125 mls/hr Q12H IVPB Last administered on 07/20/17 11:18; Admin Dose 125 MLS/HR; Start 07/18/17 at 22:00 Miscellaneous Information (*Rx Drug Level Order Reminder*) VANCOMYCIN TROUGH ON 21 ONCE ONCE XX ; Start 07/20/17 at 21:00; Stop 07/20/17 at 21:01 CLAYTON VINES Jul 20, 2017 14:30
[2017-07-20] MEDS ORDERED: FENTAnyl 50 MCG/ML VIAL ONE (14:43)
--- NOTE | 2017-07-20 16:43 | RADRPT ---
PROCEDURE: CT guided right lower quadrant pelvic abscess drainage. CLINICAL INDICATION: History of appendicitis. Pelvic abscess. TECHNIQUE: Informed consent was obtained. The procedure, risks, benefits, complications and alternatives were explained to the patient. Risks including bleeding and infection were explained. The patient underst ood and was willing to proceed. A procedural pause was performed. The patient's name, date of , and procedure to be performed were verified. One or more of the following dose reduction techn iques were used: Automated exposure control, adjustment of the mA and/or kV according to patient siz e, use of iterative reconstruction technique. DICOM images are available. Using local anesthetic, sterile technique and CT guidance, a 19-gauge Yueh needle was advanced into the fluid collection in the right lower quadrant anterior to the psoas muscle. CT scan was performe d confirming position. Greenish brown fluid was also aspirated confirming position. The needle fro m the Yueh catheter was removed, leaving the Yueh catheter in place within the abscess. A 0.035-inc h Amplatz guidewire was advanced through the Yueh catheter into the abscess. The Yueh catheter was removed. The tract was dilated to 8-Greenlandic. An 8.5 Greenlandic multipurpose drainage catheter was advan derrick over the guidewire into the abscess. The guidewire was removed. Additional scanning was perfor med confirming position. The catheter was then sutured to the patient's skin with 2-0 silk. Approx imately 50 ml of pus was aspirated. The catheter was connected to a drainage bag. A dressing was applied. The patient tolerated procedure well. COMPARISON: None. FINDINGS: Final images demonstrate the drainage catheter in satisfactory position within the pelvic abscess. IMPRESSION: 1. Successful CT guided pelvic abscess drainage. RPTAT: QQ .Master Petersen MD, MD Date Time Electronically viewed and signed by .Master Petersen MD, MD on 07/20/2017 16:42 .R/
[2017-07-20] MEDS: IBUPROFEN 600 MG TAB PO PRN ×2 (17:06→23:19)
[2017-07-20 20:07] VITALS: BP 114/63; RESP 18
--- NOTE | 2017-07-20 23:17 | CONS ---
DATE OF ADMISSION: 07/14/2017 DATE OF CONSULTATION: 07/20/2017 INFECTIOUS DISEASE CONSULTATION NOTE REASON FOR CONSULTATION: Antibiotic management. HISTORY OF PRESENT ILLNESS: Jacobo Paulino is a very pleasant 31-year-old male who was admitte d with acute appendicitis and is being seen now status post drain placement. His past problems incl ude a history of asthma in the past. The patient presented to the emergency room last , , complaining of severe abdominal pain that started at 2 in the morning. He awoke with diffu se abdominal pain, had multiple episodes of watery diarrhea. He was found to have acute appendiciti s. HOSPITAL COURSE: The patient was taken to surgery by Dr. Meño Tiwari. He did a laparoscopic arthur endectomy. At that time, the patient tolerated the procedure well; however, he was then noted to cooper ve a fluid collection in the right lower quadrant. He had moderate abdominal pain and fever, and wa s taken to interventional radiology where he had drainage and placed on broad spectrum antibiotic . His abdominal CT scan from the showed status post appendectomy with a collection of flu id containing several foci of air within the right lower quadrant adjacent to the appendectomy surgi teofilo clips. It is not completely walled off at this time. Findings may represent early developing a bscess. No evidence of bowel obstruction. Chest x-ray from 07/19/2017 showed left lower lobe conso lidation consistent with pneumonia, unchanged, small left pleural effusion, unchanged. The patient was placed on vancomycin and Flagyl and cefepime. Urine cultures negative. Blood cultures are nega tive. PAST MEDICAL HISTORY: Operations as outlined. FAMILY HISTORY: Noncontributory. SOCIAL HISTORY: Does not smoke, drink or abuse drugs. PAST SURGICAL HISTORY: Also positive for Achilles repair. The patient had asthma as a child. SOCIAL HISTORY: Does not smoke, drink or abuse drugs. ALLERGIES: NONE TO PENICILLIN, SULFA OR FOODS. MEDICATIONS: Per chart. REVIEW OF SYSTEMS: As per HPI. PHYSICAL EXAMINATION: GENERAL: The patient is a well-developed, well-nourished male who is alert, responsive, oriented x3 , in no acute distress. VITAL SIGNS: Stable. He is afebrile. SKIN: Without generalized rash. HEENT: Within normal limits. NECK: Supple. LYMPH NODES: None palpable. CHEST: Decreased breath sounds at the bases. HEART: Without murmur or gallop. ABDOMEN: Soft, slightly tender in the right lower quadrant where he has a drain placed. EXTREMITIES: Without cyanosis, clubbing or edema. RECTAL AND GENITAL: Deferred. NEUROLOGIC: No focal neurological abnormalities. IMPRESSION AND PLAN: Patient currently is stable, his white count is 10.3, he is afebrile. He has a drain in place where the abscess was, and we will await the culture reports. We will continue him on vancomycin, cefepime and Flagyl. I will dictate my findings to the hospitalist, as well as to Dr. Tiwari and Dr. Leigh. Dictated By: ELIAZAR WHITNEY MD, JD/NTS Conf#: [id number] DID#: [id number] CC: YESENIA LEIGH MD; MEÑO TIWARI MD; ERIBERTO SAGASTUME;*End*
[2017-07-21 02:27] VITALS: BP 145/87; RESP 18
[2017-07-21] MEDS: ACETAMINOPHEN 325 MG TAB PO PRN ×2 (03:56→17:47)
[2017-07-21 05:14] LABS: WHITE BLOOD COUNT 11.6 10^3/ul (4.8-10.8)
[2017-07-21 05:15] LABS: BASOPHIL # 0.1 10^3/ul (0.0-0.1); BASOPHILS % 0.4 % (0.0-2.0); EOSINOPHILS # 0.4 10^3/ul (0.0-0.5); EOSINOPHILS % 3.1 % (0.0-7.0); HEMATOCRIT 34.7 % (42.0-52.0); HEMOGLOBIN 11.6 g/dl (14.0-18.0); LYMPHOCYTES # 2.1 10^3/ul (0.8-2.9); MEAN CORPUSCULAR HEMOGLOBIN 26.1 pg (29.0-33.0); MEAN CORPUSCULAR HGB CONC 33.4 g/dl (32.0-37.0); MEAN PLATELET VOLUME 9.1 fl (7.4-10.4); MONOCYTE # 1.4 10^3/ul (0.3-0.9); MONOCYTES % 11.9 % (0.0-11.0); NEUTROPHIL # 7.5 10^3/ul (1.6-7.5); NEUTROPHILS % 64.8 % (39.0-77.0); PLATELET COUNT 338 10^3/UL (140-415); RED BLOOD COUNT 4.45 10^6/ul (4.70-6.10); RED CELL DISTRIBUTION WIDTH 13.6 % (11.5-14.5)
[2017-07-21 05:34] LABS: CALCIUM 8.3 mg/dl (8.4-10.2); CREATININE 0.98 mg/dl (0.61-1.24); MAGNESIUM 2.1 mg/dl (1.7-2.5); PHOSPHORUS 3.6 mg/dl (2.5-4.9)
[2017-07-21] MEDS: metroNIDAZOLE 500 MG/NS (PMX) 100 ML IVPB SCH ×3 (06:05→21:18)
[2017-07-21] MEDS: ENOXAPARIN 40 MG/0.4 ML SYG SC SCH (06:49)
[2017-07-21] MEDS: ALBUTEROL/IPRATROPIUM (NEB) 3 ML AMP HHN SCH ×3 (07:39→19:28)
[2017-07-21 08:00] VITALS: BP 136/81; RESP 17
[2017-07-21] MEDS: BACITRACIN 0.9 GM OINT TOP SCH ×2 (09:00→21:00)
[2017-07-21] MEDS: SILVER SULFADIAZINE 1% 25 GM CR TOP SCH (09:00)
[2017-07-21] MEDS: CEFEPIME 1GM/50 ML (PMX) 50 ML IVPB SCH ×2 (09:20→21:14)
[2017-07-21] MEDS: FAMOTIDINE 20 MG TAB PO SCH (09:20)
[2017-07-21] MEDS: IBUPROFEN 600 MG TAB PO PRN (09:20)
[2017-07-21] MEDS: VANCOMYCIN 1.75 GM in NS 500 ML IVPB SCH (11:09)
[2017-07-21] MEDS ORDERED: BISACODYL (EC) 5 MG TAB PO PRN (12:00)
--- NOTE | 2017-07-21 13:48 | PN ---
Date/Time of Note Date/Time of Note DATE: 07/21/17 TIME: 13:40 Assessment/Plan Lines/Catheters IV Catheter Type (from Nrs): Peripheral IV Assessment/Plan Chief Complaint/Hosp Course 1. Abdominal pain, fevers, leukocytosis, and CT finding of fluid collections 2nd intra-abdominal abscess -iv abx -pain control -s/p ct guided drain; follow cultures from fluid collection 2. Anemia, stable -monitor 3. BMI 31 -encourage diet and exercise optimization 4. Hypoalbuminemia, multifactorial -eventual diet optimization 5. Right groin open blister: -local care with silver cream 6. S/p lap appy 07/14 -IS -ambulate -ice pack to abdominal wall 7. Leukocytosis: no fevers; ?reactive, on abx -monitor -further workup if persistent Thank you. Patient seen and examined in collaboration with Dr. Didier Leigh. Problems: Subjective 24 Hr Interval Summary Feels well. S/p drainage of fluid collection and drain placement- creamy drainage. Slight bump up in wbc. +_bowel function. Ambulating, using IS. No fevers, chills, sob, congested cough, cp, palpitations, cooper, dizziness, n/v/d/ dysuria. Exam/Review of Systems Vital Signs Vitals Vital Signs Date Time Temp Pulse Resp B/P Pulse Ox O2 Delivery O2 Flow Rate FiO2 07/21/17 08:00 98.2 52 17 136/81 96 07/21/17 07:48 Nasal Cannula 21 07/20/17 07:35 2.0 Intake and Output 07/20/17 07/20/17 07/21/17 15:00 23:00 07:00 Intake Total 50 ml 955 ml 1925 ml Output Total 80 ml Balance 50 ml 955 ml 1845 ml Exam Free Text/Dictation Constitutional: alert, oriented No distress Psych: nl mood/affect, No anxiety Head: atraumatic, normocephalic Eyes: EOMI, PERRL, nl conjunctiva, No icteric ENMT: mucosa pink and moist, nl external ears & nose, nl lips & teeth Neck: non-tender, supple, No jvd Respiratory: normal air movement, No congested cough, No labored breathing Cardiovascular: regular rate and rhythm, No edema Gastrointestinal: soft, tender, right lower abdomen drain with creamy drainage No rebound or guarding Genitourinary - Male: nl penis, nl scrotum Musculoskeletal: nl extremities to inspection, No joint tenderness Extremities: normal pulses, No calf tenderness, No cyanosis Neurological: nl mental status, nl speech, nl strength Skin: nl turgor, right groin blister opened spontaneously and draining No diaphoresis, No rash or lesions Lymph: nl lymph nodes Results Result Diagram: 07/21/17 0453 07/21/17 0453 MERYL SULLIVAN NP Jul 21, 2017 13:48
[2017-07-21 14:00] VITALS: BP 131/75; RESP 18
--- NOTE | 2017-07-21 14:38 | PN ---
DATE: 07/21/2017 SUBJECTIVE: No acute events overnight. The patient is alert, feels good, looks comfortable. Denie s pain, no fevers overnight. INDWELLINGS: Right-sided abdominal drainage catheter. ANTIMICROBIALS: 1. Vancomycin. 2. Flagyl. 3. Cefepime. ALLERGIES: KNOWN TO ANTIBIOTICS. VITAL SIGNS: WBC today 11.6, no shift, no bands. BUN 12, creatinine 0.98. MICROBIOLOGY: Blood and urine culture negative. PHYSICAL EXAMINATION: GENERAL: Well-developed, middle-aged man who is alert, in no distress. HEENT: Head atraumatic, normocephalic. Sclerae anicteric. Buccal mucosa pink. NECK: Supple. CHEST: Rise symmetrical. Breath sounds clear. HEART: S1, S2. ABDOMEN: Soft. Bowel tones present. EXTREMITIES: Without cyanosis. ASSESSMENT: 1. Status post CT-guided intra-abdominal abscess drainage. 2. Systemic inflammatory response syndrome. 3. Status post laparoscopic appendectomy on 07/14/2017. 4. Left lower lobe pneumonia with small pleural effusion. PLAN: Patient remains stable. We will continue him on current antibiotics. Await for fluid cultur es. Follow surgical recommendations. Dictated By: RANDOLPH BERMEO [employer] for ELIAZAR DEE/NTS Conf#: [id number] DID#: [id number]
--- NOTE | 2017-07-21 14:43 | PN ---
Date/Time of Note Date/Time of Note DATE: 07/21/17 TIME: 14:41 Assessment/Plan VTE Prophylaxis VTE Prophylaxis Intervention: ambulation Lines/Catheters IV Catheter Type (from Nrsg): Peripheral IV Assessment/Plan Chief Complaint/Hosp Course Subjective 12.18 Still has moderate abdominal pain and fever 12.19 abdominal pain has improved 12.20 mild abdominal pain 12.21 improved abdominal pain, no fevers Objective Physical exam General: Patient is laying in bed and answers questions appropriately Mentation: Patient is alert and oriented 4, Head: Normocephalic atraumatic Eyes: EOMI, pupils reactive to light Neck: Supple, nontender, midline Respiratory: Clear to auscultation bilaterally Cardiovascular: regular rate, no obvious murmurs Gastrointestinal: mildly tender to palpation, bowel sounds heard. Neurological: Moves all extremities spontaneously Skin: No new skin lesions A/P Acute appendicitis s/p lap appy POD#7 - Patient pain controlled on Toradol, opiates - still pain/fever, ordered CT scan, shows possible early abscess, s/p drain placement -Dr. Leigh, covering for Dr. Cortez notified and following -continue broad spectrum antibiotics, ID recs appreciated MARY ANNE- resolved - most likely prerenal - encouraged PO hydration - continue to monitor Asthma - Stable PNA on CXR - LLL PNA - Encouraged IS - continue ABX Disposition - Continue monitoring in med/surg - KARLA drain in, - will dispo when cultures are in. Problems: Exam/Review of Systems Vital Signs Vitals Vital Signs Date Time Temp Pulse Resp B/P Pulse Ox O2 Delivery O2 Flow Rate FiO2 07/21/17 08:00 98.2 52 17 136/81 96 07/21/17 07:48 Nasal Cannula 21 07/20/17 07:35 2.0 Intake and Output 07/20/17 07/20/17 07/21/17 15:00 23:00 07:00 Intake Total 50 ml 955 ml 1925 ml Output Total 80 ml Balance 50 ml 955 ml 1845 ml Results Result Diagram: 07/21/17 0453 07/21/17 0453 Results 24 hrs Laboratory Tests Test 07/20/17 21:11 07/21/17 04:53 Vancomycin Level Trough 11.9 White Blood Count 11.6 H Red Blood Count 4.45 L Hemoglobin 11.6 L Hematocrit 34.7 L Mean Corpuscular Volume 78.0 L Mean Corpuscular Hemoglobin 26.1 L Mean Corpuscular Hemoglobin Concent 33.4 Red Cell Distribution Width 13.6 Platelet Count 338 Mean Platelet Volume 9.1 Neutrophils % 64.8 Lymphocytes % 18.0 Monocytes % 11.9 H Eosinophils % 3.1 Basophils % 0.4 Nucleated Red Blood Cells % 0.0 Neutrophils # 7.5 Lymphocytes # 2.1 Monocytes # 1.4 H Eosinophils # 0.4 Basophils # 0.1 Nucleated Red Blood Cells # 0.0 Sodium Level 138 Potassium Level 4.0 Chloride Level 105 Carbon Dioxide Level 23 Anion Gap 14 Blood Urea Nitrogen 12 Creatinine 0.98 Glucose Level 121 Calcium Level 8.3 L Phosphorus Level 3.6 Magnesium Level 2.1 Medications Medications Current Medications Acetaminophen (Tylenol Tab) 650 mg Q6H PRN PO PAIN LEVEL 1-3 OR FEVER Last administered on 07/21/17 03:56; Admin Dose 650 MG; Start 07/14/17 at 18:00 Acetaminophen/ Hydrocodone Bitart ([place] (5/325)) 1 tab Q6H PRN PO MODERATE PAIN LEVEL 4-6 Last administered on 07/19/17 02:50; Admin Dose 1 TAB; Start 07/14/17 at 18:00 Acetaminophen/ Hydrocodone Bitart ([place] (5/325)) 2 tab Q6H PRN PO SEVERE PAIN LEVEL 7-10 Last administered on 07/18/17 20:04; Admin Dose 2 TAB; Start 07/14 at 18:00 Morphine Sulfate (morphine) 2 mg Q4H PRN IV SEVERE PAIN LEVEL 7-10 Last administered on 07/20/17 20:33; Admin Dose 2 MG; Start 07/14/17 at 18:00 Docusate Sodium (Colace) 100 mg Q12H PRN PO CONSTIPATION; Start 07/14/17 at 18 :00 Magnesium Hydroxide (Milk Of Mag) 30 ml DAILY PRN PO CONSTIPATION; Start 07/14 at 18:00 Famotidine (Pepcid) 20 mg DAILY PO Last administered on 07/21/17 09:20; Admin Dose 20 MG; Start 07/15/17 at 09:00 Morphine Sulfate (morphine) 2 mg Q2H PRN IV PAIN LEVEL 6-10 Last administered on 07/20/17 16:06; Admin Dose 2 MG; Start 07/14/17 at 22:00 Oxycodone/ Acetaminophen (Percocet (5/ 325)) 1 tab Q6H PRN PO PAIN LEVEL 6-10; Start 07/14/17 at 22:00 Acetaminophen (Tylenol Tab) 650 mg Q6H PRN PO PAIN AND OR ELEVATED TEMP Last administered on 07/18/17 13:38; Admin Dose 650 MG; Start 07/14/17 at 22:00 Ondansetron HCl (Zofran Inj) 4 mg Q6H PRN IV NAUSEA AND/OR VOMITING Last administered on 07/19/17 16:28; Admin Dose 4 MG; Start 07/14/17 at 22:00 Enoxaparin Sodium (Lovenox) 40 mg DAILY@07 SC Last administered on 07/21/17 06:49; Admin Dose 40 MG; Start 07/15/17 at 07:00 Ibuprofen 600 mg 600 mg Q6H PRN PO PAIN LEVEL 1-5 Last administered on 09:20; Admin Dose 600 MG; Start 07/16/17 at 18:02 Sodium Chloride 1,000 ml @ 75 mls/hr [id number] IV Last administered on 20:23; Admin Dose 75 MLS/HR; Start 07/16/17 at 11:30 Cefepime HCl (Maxipime 1gm/50 ml (Pmx)) 50 ml @ 100 mls/hr Q12 IVPB Last administered on 07/21/17 09:20; Admin Dose 100 MLS/HR; Start 07/17/17 at 10: 30 Bacitracin 1 applic 1 applic BID TOP Last administered on 07/20/17 21:42; Admin Dose 1 APPLIC; Start 07/17/17 at 15:00 Metronidazole (Flagyl 500 Mg (Pmx)) 100 ml @ 100 mls/hr Q8 IVPB Last administered on 07/21/17 06:05; Admin Dose 100 MLS/HR; Start 07/18/17 at 14: 00 Silver Sulfadiazine 1 applic 1 applic DAILY TOP Last administered on 09:00; Admin Dose 1 APPLIC; Start 07/21/17 at 09:00 Vancomycin HCl/ Dextrose (Vancocin/D5W) 250 ml @ 83.333 mls/ hr Q8H IVPB ; Start 07/21/17 at 20:00 Bisacodyl (Dulcolax) 10 mg DAILY PRN PO CONSTIPATION Last administered on 07/21t 14:28; Admin Dose 10 MG; Start 07/21/17 at 12:00 CLAYTON VINES Jul 21, 2017 14:43
[2017-07-21] MEDS: SOD CHLORIDE 0.9% 1,000 ML IV SCH (16:04)
[2017-07-21] MEDS: morphine 2 MG INJ IV PRN (16:31)
[2017-07-21 20:00] VITALS: BP 116/59; RESP 20
[2017-07-21] MEDS: VANCOMYCIN 1.25 GM in DEXTROSE 5% 250 ML IVPB SCH (21:13)
[2017-07-21] MEDS: HYDROCODONE/APAP (5/325) TAB PO PRN (21:19)
[2017-07-22 02:00] VITALS: BP 121/58; RESP 20
[2017-07-22] MEDS: metroNIDAZOLE 500 MG/NS (PMX) 100 ML IVPB SCH ×3 (03:27→22:57)
[2017-07-22] MEDS: VANCOMYCIN 1.25 GM in DEXTROSE 5% 250 ML IVPB SCH ×2 (03:28→13:05)
[2017-07-22] MEDS: HYDROCODONE/APAP (5/325) TAB PO PRN ×4 (03:36→21:42)
[2017-07-22] MEDS: ENOXAPARIN 40 MG/0.4 ML SYG SC SCH (03:37)
[2017-07-22 05:51] LABS: BASOPHIL # 0.1 10^3/ul (0.0-0.1); BASOPHILS % 0.5 % (0.0-2.0); EOSINOPHILS # 0.5 10^3/ul (0.0-0.5); EOSINOPHILS % 3.6 % (0.0-7.0); HEMATOCRIT 35.3 % (42.0-52.0); HEMOGLOBIN 11.7 g/dl (14.0-18.0); LYMPHOCYTES # 2.9 10^3/ul (0.8-2.9); LYMPHOCYTES % 22.6 % (15.0-51.0); MEAN CORPUSCULAR HEMOGLOBIN 26.2 pg (29.0-33.0); MEAN CORPUSCULAR HGB CONC 33.1 g/dl (32.0-37.0); MEAN PLATELET VOLUME 9.5 fl (7.4-10.4); MONOCYTE # 1.3 10^3/ul (0.3-0.9); MONOCYTES % 10.3 % (0.0-11.0); NEUTROPHIL # 7.7 10^3/ul (1.6-7.5); NEUTROPHILS % 60.9 % (39.0-77.0); PLATELET COUNT 372 10^3/UL (140-415); RED BLOOD COUNT 4.47 10^6/ul (4.70-6.10); RED CELL DISTRIBUTION WIDTH 13.7 % (11.5-14.5); WHITE BLOOD COUNT 12.7 10^3/ul (4.8-10.8)
[2017-07-22] MEDS: SOD CHLORIDE 0.9% 1,000 ML IV SCH ×2 (05:59→08:38)
[2017-07-22 06:44] LABS: CALCIUM 8.2 mg/dl (8.4-10.2); CREATININE 0.98 mg/dl (0.61-1.24); PHOSPHORUS 3.7 mg/dl (2.5-4.9)
[2017-07-22 07:15] VITALS: BP 121/77; RESP 16
[2017-07-22] MEDS: ALBUTEROL/IPRATROPIUM (NEB) 3 ML AMP HHN SCH ×3 (08:14→19:52)
[2017-07-22] MEDS: CEFEPIME 1GM/50 ML (PMX) 50 ML IVPB SCH ×2 (08:30→22:57)
[2017-07-22] MEDS: FAMOTIDINE 20 MG TAB PO SCH (08:30)
[2017-07-22] MEDS: SILVER SULFADIAZINE 1% 25 GM CR TOP SCH (13:05)
[2017-07-22 14:58] VITALS: BP 127/75; RESP 18
--- NOTE | 2017-07-22 15:01 | CONS ---
Date/Time of Note Date/Time of Note DATE: 07/22/17 TIME: 15:00 Assessment/Plan Assessment/Plan Chief Complaint/Hosp Course SUBJECTIVE: No acute events overnight. The patient is alert, feels good, no fevers overnight. INDWELLINGS: Right-sided abdominal drainage catheter. ANTIMICROBIALS: 1. Vancomycin. 2. Flagyl. 3. Cefepime. ALLERGIES: none MICROBIOLOGY: Blood and urine culture negative. PHYSICAL EXAMINATION: GENERAL: Well-developed, middle-aged man who is alert, in no distress. HEENT: Head atraumatic, normocephalic. Sclerae anicteric. Buccal mucosa pink. NECK: Supple. CHEST: Rise symmetrical. Breath sounds clear. HEART: S1, S2. ABDOMEN: Soft. Bowel tones present. EXTREMITIES: Without cyanosis. ASSESSMENT: 1. Status post CT-guided intra-abdominal abscess drainage. 2. Systemic inflammatory response syndrome. 3. Status post laparoscopic appendectomy on 07/14/2017. 4. Left lower lobe pneumonia with small pleural effusion. PLAN: Patient remains stable. We will continue him on current antibiotics. Await for fluid cultures. Follow surgical recommendations. DW staff Problems: Consultation Date/Type/Reason Admit Date/Time Jul 14, 2017 at 17:24 Initial Consult Date 07/14/17 Type of Consultation: ID Exam/Review of Systems Vital Signs Vitals Vital Signs Date Time Temp Pulse Resp B/P Pulse Ox O2 Delivery O2 Flow Rate FiO2 07/22/17 14:58 98.9 61 18 127/75 98 07/22/17 14:25 21 07/21/17 07:48 Aerosol Mask 07/20/17 07:35 2.0 Intake and Output 07/21/17 07/21/17 07/22/17 15:00 23:00 07:00 Intake Total 150 ml 2105 ml 800 ml Output Total 45 ml Balance 150 ml 2060 ml 800 ml Results Result Diagram: 07/22/17 0445 07/22/17 0445 Results 24 hrs Laboratory Tests Test 07/22/17 04:45 White Blood Count 12.7 H Red Blood Count 4.47 L Hemoglobin 11.7 L Hematocrit 35.3 L Mean Corpuscular Volume 79.0 L Mean Corpuscular Hemoglobin 26.2 L Mean Corpuscular Hemoglobin Concent 33.1 Red Cell Distribution Width 13.7 Platelet Count 372 Mean Platelet Volume 9.5 Neutrophils % 60.9 Lymphocytes % 22.6 Monocytes % 10.3 Eosinophils % 3.6 Basophils % 0.5 Nucleated Red Blood Cells % 0.0 Neutrophils # 7.7 H Lymphocytes # 2.9 Monocytes # 1.3 H Eosinophils # 0.5 Basophils # 0.1 Nucleated Red Blood Cells # 0.0 Sodium Level 136 Potassium Level 4.0 Chloride Level 105 Carbon Dioxide Level 23 Anion Gap 12 Blood Urea Nitrogen 10 Creatinine 0.98 Glucose Level 111 Calcium Level 8.2 L Phosphorus Level 3.7 Magnesium Level 2.0 Medications Medications Current Medications Acetaminophen (Tylenol Tab) 650 mg Q6H PRN PO PAIN LEVEL 1-3 OR FEVER Last administered on 07/21/17 17:47; Admin Dose 650 MG; Start 07/14/17 at 18:00 Acetaminophen/ Hydrocodone Bitart ([place] (5/325)) 1 tab Q6H PRN PO MODERATE PAIN LEVEL 4-6 Last administered on 07/19/17 02:50; Admin Dose 1 TAB; Start 07/14/17 at 18:00 Acetaminophen/ Hydrocodone Bitart ([place] (5/325)) 2 tab Q6H PRN PO SEVERE PAIN LEVEL 7-10 Last administered on 07/22/17 10:04; Admin Dose 2 TAB; Start 07/14 at 18:00 Morphine Sulfate (morphine) 2 mg Q4H PRN IV SEVERE PAIN LEVEL 7-10 Last administered on 07/21/17 16:31; Admin Dose 2 MG; Start 07/14/17 at 18:00 Docusate Sodium (Colace) 100 mg Q12H PRN PO CONSTIPATION; Start 07/14/17 at 18 :00 Magnesium Hydroxide (Milk Of Mag) 30 ml DAILY PRN PO CONSTIPATION; Start 07/14 at 18:00 Famotidine (Pepcid) 20 mg DAILY PO Last administered on 07/22/17 08:30; Admin Dose 20 MG; Start 07/15/17 at 09:00 Morphine Sulfate (morphine) 2 mg Q2H PRN IV PAIN LEVEL 6-10 Last administered on 07/20/17 16:06; Admin Dose 2 MG; Start 07/14/17 at 22:00 Oxycodone/ Acetaminophen (Percocet (5/ 325)) 1 tab Q6H PRN PO PAIN LEVEL 6-10; Start 07/14/17 at 22:00 Acetaminophen (Tylenol Tab) 650 mg Q6H PRN PO PAIN AND OR ELEVATED TEMP Last administered on 07/18/17 13:38; Admin Dose 650 MG; Start 07/14/17 at 22:00 Ondansetron HCl (Zofran Inj) 4 mg Q6H PRN IV NAUSEA AND/OR VOMITING Last administered on 07/19/17 16:28; Admin Dose 4 MG; Start 07/14/17 at 22:00 Enoxaparin Sodium (Lovenox) 40 mg DAILY@07 SC Last administered on 07/22/17 03:37; Admin Dose 40 MG; Start 07/15/17 at 07:00 Ibuprofen 600 mg 600 mg Q6H PRN PO PAIN LEVEL 1-5 Last administered on 09:20; Admin Dose 600 MG; Start 07/16/17 at 18:02 Sodium Chloride 1,000 ml @ 75 mls/hr [id number] IV Last administered on 08:38; Admin Dose 75 MLS/HR; Start 07/16/17 at 11:30 Cefepime HCl 50 ml @ 100 mls/hr Q12 IVPB Last administered on 07/22/17 08:30 ; Admin Dose 100 MLS/HR; Start 07/17/17 at 10:30 Metronidazole (Flagyl 500 Mg (Pmx)) 100 ml @ 100 mls/hr Q8 IVPB Last administered on 07/22/17 03:27; Admin Dose 100 MLS/HR; Start 07/18/17 at 14: 00 Silver Sulfadiazine 1 applic 1 applic DAILY TOP Last administered on 13:05; Admin Dose 1 APPLIC; Start 07/21/17 at 09:00 Vancomycin HCl/ Dextrose (Vancocin/D5W) 250 ml @ 83.333 mls/ hr Q8H IVPB Last administered on 07/22/17 13:05; Admin Dose 83.333 MLS/HR; Start 07/21/17 at 20:00; Stop 07/22/17 at 19:59 Bisacodyl (Dulcolax) 10 mg DAILY PRN PO CONSTIPATION Last administered on 07/21 14:28; Admin Dose 10 MG; Start 07/21/17 at 12:00 Miscellaneous Information VANCOMYCIN TROUGH ON 07/02... ONCE ONCE XX ; Start at 19:00; Stop 07/22/17 at 19:01 Vancomycin HCl/ Sodium Chloride (Vancocin/Sodium Chloride) 250 ml @ 83.333 mls / hr Q8H IVPB ; Start 07/22/17 at 20:00 RANDOLPH BERMEO NP Jul 22, 2017 15:01
--- NOTE | 2017-07-22 16:16 | PN ---
Date/Time of Note Date/Time of Note DATE: 07/22/17 TIME: 16:15 Assessment/Plan VTE Prophylaxis VTE Prophylaxis Intervention: ambulation, SCD's Lines/Catheters IV Catheter Type (from Nrsg): Peripheral IV Assessment/Plan Chief Complaint/Hosp Course Subjective 12.18 Still has moderate abdominal pain and fever 12.19 abdominal pain has improved 12.20 mild abdominal pain 12.21 improved abdominal pain, no fevers 12.22 continued improvement, but had fever Objective Physical exam General: Patient is laying in bed and answers questions appropriately Mentation: Patient is alert and oriented 4, Head: Normocephalic atraumatic Eyes: EOMI, pupils reactive to light Neck: Supple, nontender, midline Respiratory: Clear to auscultation bilaterally Cardiovascular: regular rate, no obvious murmurs Gastrointestinal: mildly tender to palpation, bowel sounds heard. Neurological: Moves all extremities spontaneously Skin: No new skin lesions A/P Acute appendicitis s/p lap appy POD#8 - Patient pain controlled on Toradol, opiates - patient still pain/fever, ordered CT scan, shows possible early abscess, s/p drain placement -Dr. Cortez back managing patient -continue broad spectrum antibiotics, ID recs appreciated abdominal abscess -prelim cultures gram neg willian -ID recs appreciated -patient will DC with drain MARY ANNE- resolved - most likely prerenal - encouraged PO hydration - continue to monitor Asthma - Stable PNA on CXR - LLL PNA - Encouraged IS - continue ABX Disposition - Continue monitoring in med/surg - KARLA drain in, - will dispo when cultures are in. Problems: Exam/Review of Systems Vital Signs Vitals Vital Signs Date Time Temp Pulse Resp B/P Pulse Ox O2 Delivery O2 Flow Rate FiO2 07/22/17 14:58 98.9 61 18 127/75 98 07/22/17 14:25 21 07/21/17 07:48 Aerosol Mask 07/20/17 07:35 2.0 Intake and Output 07/21/17 07/21/17 07/22/17 15:00 23:00 07:00 Intake Total 150 ml 2105 ml 800 ml Output Total 45 ml Balance 150 ml 2060 ml 800 ml Results Result Diagram: 07/22/175 07/22/175 Results 24 hrs Laboratory Tests Test 07/22/17 04:45 White Blood Count 12.7 H Red Blood Count 4.47 L Hemoglobin 11.7 L Hematocrit 35.3 L Mean Corpuscular Volume 79.0 L Mean Corpuscular Hemoglobin 26.2 L Mean Corpuscular Hemoglobin Concent 33.1 Red Cell Distribution Width 13.7 Platelet Count 372 Mean Platelet Volume 9.5 Neutrophils % 60.9 Lymphocytes % 22.6 Monocytes % 10.3 Eosinophils % 3.6 Basophils % 0.5 Nucleated Red Blood Cells % 0.0 Neutrophils # 7.7 H Lymphocytes # 2.9 Monocytes # 1.3 H Eosinophils # 0.5 Basophils # 0.1 Nucleated Red Blood Cells # 0.0 Sodium Level 136 Potassium Level 4.0 Chloride Level 105 Carbon Dioxide Level 23 Anion Gap 12 Blood Urea Nitrogen 10 Creatinine 0.98 Glucose Level 111 Calcium Level 8.2 L Phosphorus Level 3.7 Magnesium Level 2.0 Medications Medications Current Medications Acetaminophen (Tylenol Tab) 650 mg Q6H PRN PO PAIN LEVEL 1-3 OR FEVER Last administered on 07/21/17 17:47; Admin Dose 650 MG; Start 07/14/17 at 18:00 Acetaminophen/ Hydrocodone Bitart ([place] (5/325)) 1 tab Q6H PRN PO MODERATE PAIN LEVEL 4-6 Last administered on 07/19/17 02:50; Admin Dose 1 TAB; Start 07/14/17 at 18:00 Acetaminophen/ Hydrocodone Bitart ([place] (5/325)) 2 tab Q6H PRN PO SEVERE PAIN LEVEL 7-10 Last administered on 07/22/17 15:55; Admin Dose 2 TAB; Start 07/14 at 18:00 Morphine Sulfate (morphine) 2 mg Q4H PRN IV SEVERE PAIN LEVEL 7-10 Last administered on 07/21/17 16:31; Admin Dose 2 MG; Start 07/14/17 at 18:00 Docusate Sodium (Colace) 100 mg Q12H PRN PO CONSTIPATION; Start 07/14/17 at 18 :00 Magnesium Hydroxide (Milk Of Mag) 30 ml DAILY PRN PO CONSTIPATION; Start 07/14 at 18:00 Famotidine (Pepcid) 20 mg DAILY PO Last administered on 07/22/17 08:30; Admin Dose 20 MG; Start 07/15/17 at 09:00 Morphine Sulfate (morphine) 2 mg Q2H PRN IV PAIN LEVEL 6-10 Last administered on 07/20/17 16:06; Admin Dose 2 MG; Start 07/14/17 at 22:00 Oxycodone/ Acetaminophen (Percocet (5/ 325)) 1 tab Q6H PRN PO PAIN LEVEL 6-10; Start 07/14/17 at 22:00 Acetaminophen (Tylenol Tab) 650 mg Q6H PRN PO PAIN AND OR ELEVATED TEMP Last administered on 07/18/17 13:38; Admin Dose 650 MG; Start 07/14/17 at 22:00 Ondansetron HCl (Zofran Inj) 4 mg Q6H PRN IV NAUSEA AND/OR VOMITING Last administered on 07/19/17 16:28; Admin Dose 4 MG; Start 07/14/17 at 22:00 Enoxaparin Sodium (Lovenox) 40 mg DAILY@07 SC Last administered on 07/22/17 03:37; Admin Dose 40 MG; Start 07/15/17 at 07:00 Ibuprofen 600 mg 600 mg Q6H PRN PO PAIN LEVEL 1-5 Last administered on 09:20; Admin Dose 600 MG; Start 07/16/17 at 18:02 Sodium Chloride 1,000 ml @ 75 mls/hr [id number] IV Last administered on 08:38; Admin Dose 75 MLS/HR; Start 07/16/17 at 11:30 Cefepime HCl 50 ml @ 100 mls/hr Q12 IVPB Last administered on 07/22/17 08:30 ; Admin Dose 100 MLS/HR; Start 07/17/17 at 10:30 Metronidazole (Flagyl 500 Mg (Pmx)) 100 ml @ 100 mls/hr Q8 IVPB Last administered on 07/22/17 03:27; Admin Dose 100 MLS/HR; Start 07/18/17 at 14: 00 Silver Sulfadiazine 1 applic 1 applic DAILY TOP Last administered on 13:05; Admin Dose 1 APPLIC; Start 07/21/17 at 09:00 Vancomycin HCl/ Dextrose (Vancocin/D5W) 250 ml @ 83.333 mls/ hr Q8H IVPB Last administered on 07/22/17 13:05; Admin Dose 83.333 MLS/HR; Start 07/21/17 at 20:00; Stop 07/22/17 at 19:59 Bisacodyl (Dulcolax) 10 mg DAILY PRN PO CONSTIPATION Last administered on 07/21t 14:28; Admin Dose 10 MG; Start 07/21/17 at 12:00 Miscellaneous Information VANCOMYCIN TROUGH ON 07/02... ONCE ONCE XX ; Start at 19:00; Stop 07/22/17 at 19:01 Vancomycin HCl/ Sodium Chloride (Vancocin/Sodium Chloride) 250 ml @ 83.333 mls / hr Q8H IVPB ; Start 07/22/17 at 20:00 CLAYTON VINES Jul 22, 2017 16:16
--- NOTE | 2017-07-22 17:38 | PN ---
Date/Time of Note Date/Time of Note DATE: 07/22/17 TIME: 17:37 Assessment/Plan Lines/Catheters IV Catheter Type (from Nrsg): Peripheral IV Assessment/Plan Chief Complaint/Hosp Course Postop day 9 status post lap appendectomy When IR drainage yesterday Fevers improving With elevated white count Should be okay for discharge next few days once afebrile and sensitivities returned Problems: Subjective 24 Hr Interval Summary Constitutional: ambulates, flatus, improved, no complaints Pain Control: well controlled Exam/Review of Systems Vital Signs Vitals Vital Signs Date Time Temp Pulse Resp B/P Pulse Ox O2 Delivery O2 Flow Rate FiO2 07/22/17 17:00 100.0 07/22/17 14:58 61 18 127/75 98 07/22/17 14:25 21 07/21/17 07:48 Aerosol Mask 07/20/17 07:35 2.0 Intake and Output 07/21/17 07/21/17 07/22/17 15:00 23:00 07:00 Intake Total 150 ml 2105 ml 800 ml Output Total 45 ml Balance 150 ml 2060 ml 800 ml Exam Constitutional: alert, oriented, well developed Eyes: nl conjunctiva ENMT: nl external ears & nose Respiratory: clear to auscultation Cardiovascular: regular rate and rhythm Gastrointestinal: other (Mildly distended), soft Results Result Diagram: 07/22/175 07/22/175 JOSÉ ANTONIO TIWARI MD Jul 22, 2017 17:38
[2017-07-22 20:00] VITALS: BP 120/76; RESP 19
[2017-07-22] MEDS: VANCOMYCIN 1.25 GM in SODIUM CHLORIDE 0.45 % 250 ML IVPB SCH (20:42)
[2017-07-23 02:00] VITALS: BP 118/70; RESP 20
[2017-07-23] MEDS: VANCOMYCIN 1.25 GM in SODIUM CHLORIDE 0.45 % 250 ML IVPB SCH (04:03)
[2017-07-23 05:04] LABS: BASOPHIL # 0.1 10^3/ul (0.0-0.1); BASOPHILS % 0.4 % (0.0-2.0); EOSINOPHILS # 0.5 10^3/ul (0.0-0.5); EOSINOPHILS % 3.5 % (0.0-7.0); HEMATOCRIT 34.4 % (42.0-52.0); HEMOGLOBIN 11.3 g/dl (14.0-18.0); LYMPHOCYTES # 2.9 10^3/ul (0.8-2.9); LYMPHOCYTES % 21.8 % (15.0-51.0); MEAN CORPUSCULAR HEMOGLOBIN 26.3 pg (29.0-33.0); MEAN CORPUSCULAR HGB CONC 32.8 g/dl (32.0-37.0); MONOCYTE # 1.3 10^3/ul (0.3-0.9); MONOCYTES % 9.5 % (0.0-11.0); NEUTROPHIL # 8.3 10^3/ul (1.6-7.5); NEUTROPHILS % 63.1 % (39.0-77.0); PLATELET COUNT 438 10^3/UL (140-415); RED CELL DISTRIBUTION WIDTH 14.2 % (11.5-14.5); WHITE BLOOD COUNT 13.1 10^3/ul (4.8-10.8)
[2017-07-23] MEDS: HYDROCODONE/APAP (5/325) TAB PO PRN ×3 (05:19→18:41)
[2017-07-23 05:40] LABS: CALCIUM 8.5 mg/dl (8.4-10.2); CREATININE 1.07 mg/dl (0.61-1.24); MAGNESIUM 2.1 mg/dl (1.7-2.5); PHOSPHORUS 4.9 mg/dl (2.5-4.9); POTASSIUM 4.2 mmol/L (3.5-5.1)
[2017-07-23] MEDS ORDERED: DIPHENHYDRAMINE 50 MG INJ IV PRN (06:30)
[2017-07-23] MEDS: metroNIDAZOLE 500 MG/NS (PMX) 100 ML IVPB SCH ×3 (06:47→22:09)
[2017-07-23] MEDS: ENOXAPARIN 40 MG/0.4 ML SYG SC SCH (06:51)
[2017-07-23] MEDS: ALBUTEROL/IPRATROPIUM (NEB) 3 ML AMP HHN SCH ×3 (07:43→19:41)
[2017-07-23 08:00] VITALS: BP 117/70; RESP 20
[2017-07-23] MEDS: CEFEPIME 1GM/50 ML (PMX) 50 ML IVPB SCH ×2 (09:21→21:10)
[2017-07-23] MEDS: FAMOTIDINE 20 MG TAB PO SCH (09:22)
[2017-07-23] MEDS: POLYETHYLENE GLYCOL 17 GM PACKET PO SCH (09:22)
[2017-07-23] MEDS: SILVER SULFADIAZINE 1% 25 GM CR TOP SCH (12:00)
--- NOTE | 2017-07-23 13:05 | PN ---
Date/Time of Note Date/Time of Note DATE: 07/23/17 TIME: 13:05 Assessment/Plan VTE Prophylaxis VTE Prophylaxis Intervention: ambulation, SCD's Lines/Catheters IV Catheter Type (from Nrsg): Saline Lock Assessment/Plan Chief Complaint/Hosp Course Subjective 12.18 Still has moderate abdominal pain and fever 12.19 abdominal pain has improved 12.20 mild abdominal pain 12.21 improved abdominal pain, no fevers 12.22 continued improvement, but had fever 12.23 still has fever Objective Physical exam General: Patient is laying in bed and answers questions appropriately Mentation: Patient is alert and oriented 4, Head: Normocephalic atraumatic Eyes: EOMI, pupils reactive to light Neck: Supple, nontender, midline Respiratory: Clear to auscultation bilaterally Cardiovascular: regular rate, no obvious murmurs Gastrointestinal: mildly tender to palpation, bowel sounds heard. Neurological: Moves all extremities spontaneously Skin: No new skin lesions A/P Acute appendicitis s/p lap appy POD#9 - Patient pain controlled on Toradol, opiates - patient still pain/fever, ordered CT scan, shows possible early abscess, s/p drain placement -Dr. Cortez back managing patient -continue broad spectrum antibiotics, ID recs appreciated abdominal abscess -prelim cultures gram neg willian -ID recs appreciated -patient will DC with drain MARY ANNE- resolved - most likely prerenal - encouraged PO hydration - continue to monitor Asthma - Stable PNA on CXR - LLL PNA - Encouraged IS - continue ABX Disposition - Continue monitoring in med/surg - KARLA drain in, - plan to DC with drain w once fevers are gone for 24-48 hours Problems: Exam/Review of Systems Vital Signs Vitals Vital Signs Date Time Temp Pulse Resp B/P Pulse Ox O2 Delivery O2 Flow Rate FiO2 07/23/17 08:00 99.2 80 20 117/70 96 07/23/17 07:43 21 07/21/17 07:48 Aerosol Mask 07/20/17 07:35 2.0 Intake and Output 07/22/17 07/22/17 07/23/17 15:00 23:00 07:00 Intake Total 500 ml 920 ml 1820 ml Output Total 30 ml 10 ml Balance 500 ml 890 ml 1810 ml Results Result Diagram: 07/23/17 0428 07/23/17 0428 Results 24 hrs Laboratory Tests Test 07/22/17 19:16 12/23/17 04:28 Vancomycin Level Trough 14.7 White Blood Count 13.1 H Red Blood Count 4.30 L Hemoglobin 11.3 L Hematocrit 34.4 L Mean Corpuscular Volume 80.0 L Mean Corpuscular Hemoglobin 26.3 L Mean Corpuscular Hemoglobin Concent 32.8 Red Cell Distribution Width 14.2 Platelet Count 438 H Mean Platelet Volume 9.0 Neutrophils % 63.1 Lymphocytes % 21.8 Monocytes % 9.5 Eosinophils % 3.5 Basophils % 0.4 Nucleated Red Blood Cells % 0.0 Neutrophils # 8.3 H Lymphocytes # 2.9 Monocytes # 1.3 H Eosinophils # 0.5 Basophils # 0.1 Nucleated Red Blood Cells # 0.0 Sodium Level 138 Potassium Level 4.2 Chloride Level 104 Carbon Dioxide Level 26 Anion Gap 12 Blood Urea Nitrogen 9 Creatinine 1.07 Glucose Level 105 Calcium Level 8.5 Phosphorus Level 4.9 Magnesium Level 2.1 Medications Medications Current Medications Acetaminophen (Tylenol Tab) 650 mg Q6H PRN PO PAIN LEVEL 1-3 OR FEVER Last administered on 07/21/17 17:47; Admin Dose 650 MG; Start 07/14/17 at 18:00 Acetaminophen/ Hydrocodone Bitart ([place] (5/325)) 1 tab Q6H PRN PO MODERATE PAIN LEVEL 4-6 Last administered on 07/23/17 11:58; Admin Dose 1 TAB; Start 07/14/17 at 18:00 Acetaminophen/ Hydrocodone Bitart ([place] (5/325)) 2 tab Q6H PRN PO SEVERE PAIN LEVEL 7-10 Last administered on 07/23/17 05:19; Admin Dose 2 TAB; Start 07/14 at 18:00 Morphine Sulfate (morphine) 2 mg Q4H PRN IV SEVERE PAIN LEVEL 7-10 Last administered on 07/21/17 16:31; Admin Dose 2 MG; Start 07/14/17 at 18:00 Famotidine (Pepcid) 20 mg DAILY PO Last administered on 07/23/17 09:22; Admin Dose 20 MG; Start 07/15/17 at 09:00 Morphine Sulfate (morphine) 2 mg Q2H PRN IV PAIN LEVEL 6-10 Last administered on 07/20/17 16:06; Admin Dose 2 MG; Start 07/14/17 at 22:00 Oxycodone/ Acetaminophen (Percocet (5/ 325)) 1 tab Q6H PRN PO PAIN LEVEL 6-10; Start 07/14/17 at 22:00 Acetaminophen (Tylenol Tab) 650 mg Q6H PRN PO PAIN AND OR ELEVATED TEMP Last administered on 07/18/17 13:38; Admin Dose 650 MG; Start 07/14/17 at 22:00 Ondansetron HCl (Zofran Inj) 4 mg Q6H PRN IV NAUSEA AND/OR VOMITING Last administered on 07/19/17 16:28; Admin Dose 4 MG; Start 07/14/17 at 22:00 Enoxaparin Sodium (Lovenox) 40 mg DAILY@07 SC Last administered on 07/23/17 06:51; Admin Dose 40 MG; Start 07/15/17 at 07:00 Ibuprofen 600 mg 600 mg Q6H PRN PO PAIN LEVEL 1-5 Last administered on 09:20; Admin Dose 600 MG; Start 07/16/17 at 18:02 Cefepime HCl 50 ml @ 100 mls/hr Q12 IVPB Last administered on 07/23/17 09:21 ; Admin Dose 100 MLS/HR; Start 07/17/17 at 10:30 Metronidazole (Flagyl 500 Mg (Pmx)) 100 ml @ 100 mls/hr Q8 IVPB Last administered on 07/23/17 06:47; Admin Dose 100 MLS/HR; Start 07/18/17 at 14: 00 Silver Sulfadiazine 1 applic 1 applic DAILY TOP Last administered on 12:00; Admin Dose 1 APPLIC; Start 07/21/17 at 09:00 Vancomycin HCl/ Sodium Chloride (Vancocin/Sodium Chloride) 250 ml @ 83.333 mls / hr Q8H IVPB Last administered on 07/23/17 04:03; Admin Dose 83.333 MLS/HR; Start 07/22/17 at 20:00; Status Future Hold Polyethylene Glycol (Miralax) 17 gm DAILY PO Last administered on 07/23/17 09 :22; Admin Dose 17 GM; Start 07/23/17 at 09:00 Diphenhydramine HCl (Benadryl) 25 mg Q6H PRN IV ITCHING Last administered on 06:44; Admin Dose 25 MG; Start 07/23/17 at 06:30 CLAYTON VINES Jul 23, 2017 13:05
[2017-07-23 14:00] VITALS: BP 121/64; RESP 20
--- NOTE | 2017-07-23 18:34 | CONS ---
Date/Time of Note Date/Time of Note DATE: 07/23/17 TIME: 18:30 Consultation Date/Type/Reason Admit Date/Time Jul 14, 2017 at 17:24 Initial Consult Date SUBJECTIVE: 31 y/o male S/P successful CT guided pelvic abscess drainage. CA PNA. No acute events overnight. The patient is alert, feels good, no fevers. VS: 121/64 P:86 R:20 T: 98.6 SO296% LABS: Reviewed. WBC-13.1-(increased) INDWELLINGS: Right-sided abdominal drainage catheter. ANTIMICROBIALS: 1. Vancomycin. 2. Flagyl. 3. Cefepime. ALLERGIES: none MICROBIOLOGY: Blood and urine culture negative. PHYSICAL EXAMINATION: GENERAL: Well-developed, middle-aged man who is alert, in no distress. HEENT: Head atraumatic, normocephalic. Sclerae anicteric. Buccal mucosa pink. NECK: Supple. CHEST: Rise symmetrical. Breath sounds clear. HEART: S1, S2. ABDOMEN: Soft. Bowel tones present. EXTREMITIES: Without cyanosis. ASSESSMENT: 1. Status post CT-guided intra-abdominal abscess drainage. 2. Systemic inflammatory response syndrome. 3. Status post laparoscopic appendectomy on 07/14/2017. 4. Left lower lobe pneumonia with small pleural effusion. PLAN: Patient remains stable. We will continue him on current antibiotics. Await for fluid cultures. Follow surgical recommendations. . Type of Consultation: ID Exam/Review of Systems Vital Signs Vitals Vital Signs Date Time Temp Pulse Resp B/P Pulse Ox O2 Delivery O2 Flow Rate FiO2 07/23/17 14:55 69 18 95 21 07/23/17 14:00 98.6 121/64 07/21/17 07:48 Aerosol Mask 07/20/17 07:35 2.0 Intake and Output 07/22/17 07/22/17 07/23/17 15:00 23:00 07:00 Intake Total 500 ml 920 ml 1820 ml Output Total 30 ml 10 ml Balance 500 ml 890 ml 1810 ml Results Result Diagram: 07/23/17 0428 07/23/17 0428 Results 24 hrs Laboratory Tests Test 07/22/17 19:16 07/23/17 04:28 Vancomycin Level Trough 14.7 White Blood Count 13.1 H Red Blood Count 4.30 L Hemoglobin 11.3 L Hematocrit 34.4 L Mean Corpuscular Volume 80.0 L Mean Corpuscular Hemoglobin 26.3 L Mean Corpuscular Hemoglobin Concent 32.8 Red Cell Distribution Width 14.2 Platelet Count 438 H Mean Platelet Volume 9.0 Neutrophils % 63.1 Lymphocytes % 21.8 Monocytes % 9.5 Eosinophils % 3.5 Basophils % 0.4 Nucleated Red Blood Cells % 0.0 Neutrophils # 8.3 H Lymphocytes # 2.9 Monocytes # 1.3 H Eosinophils # 0.5 Basophils # 0.1 Nucleated Red Blood Cells # 0.0 Sodium Level 138 Potassium Level 4.2 Chloride Level 104 Carbon Dioxide Level 26 Anion Gap 12 Blood Urea Nitrogen 9 Creatinine 1.07 Glucose Level 105 Calcium Level 8.5 Phosphorus Level 4.9 Magnesium Level 2.1 Medications Medications Current Medications Acetaminophen (Tylenol Tab) 650 mg Q6H PRN PO PAIN LEVEL 1-3 OR FEVER Last administered on 07/21/17 17:47; Admin Dose 650 MG; Start 07/14/17 at 18:00 Acetaminophen/ Hydrocodone Bitart ([place] (5/325)) 1 tab Q6H PRN PO MODERATE PAIN LEVEL 4-6 Last administered on 07/23/17 11:58; Admin Dose 1 TAB; Start 07/14/17 at 18:00 Acetaminophen/ Hydrocodone Bitart ([place] (5/325)) 2 tab Q6H PRN PO SEVERE PAIN LEVEL 7-10 Last administered on 07/23/17 05:19; Admin Dose 2 TAB; Start 07/14 at 18:00 Morphine Sulfate (morphine) 2 mg Q4H PRN IV SEVERE PAIN LEVEL 7-10 Last administered on 07/21/17 16:31; Admin Dose 2 MG; Start 07/14/17 at 18:00 Famotidine (Pepcid) 20 mg DAILY PO Last administered on 07/23/17 09:22; Admin Dose 20 MG; Start 07/15/17 at 09:00 Morphine Sulfate (morphine) 2 mg Q2H PRN IV PAIN LEVEL 6-10 Last administered on 07/20/17 16:06; Admin Dose 2 MG; Start 07/14/17 at 22:00 Oxycodone/ Acetaminophen (Percocet (5/ 325)) 1 tab Q6H PRN PO PAIN LEVEL 6-10; Start 07/14/17 at 22:00 Acetaminophen (Tylenol Tab) 650 mg Q6H PRN PO PAIN AND OR ELEVATED TEMP Last administered on 07/18/17 13:38; Admin Dose 650 MG; Start 07/14/17 at 22:00 Ondansetron HCl (Zofran Inj) 4 mg Q6H PRN IV NAUSEA AND/OR VOMITING Last administered on 07/19/17 16:28; Admin Dose 4 MG; Start 07/14/17 at 22:00 Enoxaparin Sodium (Lovenox) 40 mg DAILY@07 SC Last administered on 07/23/17 06:51; Admin Dose 40 MG; Start 07/15/17 at 07:00 Ibuprofen 600 mg 600 mg Q6H PRN PO PAIN LEVEL 1-5 Last administered on 09:20; Admin Dose 600 MG; Start 07/16/17 at 18:02 Cefepime HCl 50 ml @ 100 mls/hr Q12 IVPB Last administered on 07/23/17 09:21 ; Admin Dose 100 MLS/HR; Start 07/17/17 at 10:30 Metronidazole (Flagyl 500 Mg (Pmx)) 100 ml @ 100 mls/hr Q8 IVPB Last administered on 07/23/17 14:29; Admin Dose 100 MLS/HR; Start 07/18/17 at 14: 00 Silver Sulfadiazine 1 applic 1 applic DAILY TOP Last administered on 12:00; Admin Dose 1 APPLIC; Start 07/21/17 at 09:00 Vancomycin HCl/ Sodium Chloride (Vancocin/Sodium Chloride) 250 ml @ 83.333 mls / hr Q8H IVPB Last administered on 07/23/17 04:03; Admin Dose 83.333 MLS/HR; Start 07/22/17 at 20:00; Status Future Hold Polyethylene Glycol (Miralax) 17 gm DAILY PO Last administered on 07/23/17 09 :22; Admin Dose 17 GM; Start 07/23/17 at 09:00 Diphenhydramine HCl (Benadryl) 25 mg Q6H PRN IV ITCHING Last administered on 06:44; Admin Dose 25 MG; Start 07/23/17 at 06:30 KARINA LORD Jul 23, 2017 18:34
[2017-07-23 20:37] VITALS: BP 133/58; RESP 18
[2017-07-24 02:45] VITALS: BP 122/75; RESP 17
[2017-07-24] MEDS: metroNIDAZOLE 500 MG/NS (PMX) 100 ML IVPB SCH (05:18)
[2017-07-24] MEDS: ENOXAPARIN 40 MG/0.4 ML SYG SC SCH (05:19)
[2017-07-24] MEDS: HYDROCODONE/APAP (5/325) TAB PO PRN ×2 (05:33→12:23)
[2017-07-24 06:17] LABS: BASOPHIL # 0.1 10^3/ul (0.0-0.1); BASOPHILS % 0.5 % (0.0-2.0); EOSINOPHILS # 0.5 10^3/ul (0.0-0.5); EOSINOPHILS % 3.5 % (0.0-7.0); HEMATOCRIT 37.4 % (42.0-52.0); HEMOGLOBIN 12.4 g/dl (14.0-18.0); LYMPHOCYTES # 2.7 10^3/ul (0.8-2.9); LYMPHOCYTES % 18.7 % (15.0-51.0); MEAN CORPUSCULAR HEMOGLOBIN 26.4 pg (29.0-33.0); MEAN CORPUSCULAR HGB CONC 33.2 g/dl (32.0-37.0); MEAN CORPUSCULAR VOLUME 79.6 fl (82.0-101.0); MONOCYTE # 1.2 10^3/ul (0.3-0.9); MONOCYTES % 8.2 % (0.0-11.0); NEUTROPHIL # 9.6 10^3/ul (1.6-7.5); NEUTROPHILS % 67.3 % (39.0-77.0); PLATELET COUNT 546 10^3/UL (140-415); RED CELL DISTRIBUTION WIDTH 13.8 % (11.5-14.5); WHITE BLOOD COUNT 14.3 10^3/ul (4.8-10.8)
[2017-07-24 06:57] LABS: CALCIUM 8.9 mg/dl (8.4-10.2); CREATININE 1.09 mg/dl (0.61-1.24); MAGNESIUM 2.1 mg/dl (1.7-2.5); PHOSPHORUS 4.4 mg/dl (2.5-4.9); POTASSIUM 4.6 mmol/L (3.5-5.1)
[2017-07-24 08:00] VITALS: BP 125/75; RESP 17
[2017-07-24] MEDS: ALBUTEROL/IPRATROPIUM (NEB) 3 ML AMP HHN SCH ×3 (08:10→20:03)
[2017-07-24] MEDS: CEFEPIME 1GM/50 ML (PMX) 50 ML IVPB SCH ×2 (09:23→20:43)
[2017-07-24] MEDS: POLYETHYLENE GLYCOL 17 GM PACKET PO SCH (09:29)
[2017-07-24] MEDS: FAMOTIDINE 20 MG TAB PO SCH (09:29)
[2017-07-24] MEDS: SILVER SULFADIAZINE 1% 25 GM CR TOP SCH (09:29)
--- NOTE | 2017-07-24 09:34 | PN ---
Date/Time of Note Date/Time of Note DATE: 07/24/17 TIME: 09:33 Assessment/Plan Lines/Catheters IV C[facility]ter [facility]from [facility]): Saline Lock Assessment/Plan Chief Complaint/Hosp Course Postop day 11 status post lap appendectomy Afebrile 48 hours White count still elevated to 14 Repeat scan of his abdomen today to assess drainage. If collection is resolved , may discharge home on oral antibiotics. Problems: Subjective 24 Hr Interval Summary Constitutional: BM, ambulates, improved, no complaints Pain Control: well controlled Exam/Review of Systems Vital Signs Vitals Vital Signs Date Time Temp Pulse Resp B/P Pulse Ox O2 Delivery O2 Flow Rate FiO2 07/24/17 08:10 64 20 96 21 07/24/17 08:00 99.1 125/75 07/21/17 07:48 Aerosol Mask 07/20/17 07:35 2.0 Intake and Output 07/23/17 07/23/17 07/24/17 15:00 23:00 07:00 Intake Total 150 ml 1150 ml 670 ml Output Total 20 ml 20 ml Balance 150 ml 1130 ml 650 ml Exam Constitutional: alert, oriented, well developed Psych: no complaints ENMT: nl external ears & nose Neck: supple Respiratory: clear to auscultation Cardiovascular: regular rate and rhythm Gastrointestinal: non-tender, soft Results Result Diagram: 07/24/17 0450 07/24/17 0450 JOSÉ ANTONIO TIWARI MD Jul 24, 2017 09:34
[2017-07-24] MEDS ORDERED: IOHEXOL 300MG/ML 150 ML BTL ONE (10:36)
[2017-07-24] MEDS ORDERED: SOD CHLORIDE 0.9% 100 ML ONE (10:36)
[2017-07-24] MEDS ORDERED: LEVOFLOXACIN 750 MG TABLET PO ONE (11:00)
[2017-07-24] MEDS ORDERED: LEVO750T25 PO (11:18)
[2017-07-24] MEDS ORDERED: HYDR-3498 PO (11:18)
--- NOTE | 2017-07-24 11:57 | RADRPT ---
PROCEDURE: CT abdomen and pelvis with contrast. CLINICAL INDICATION: Follow-up of pelvic abscess TECHNIQUE: CT scan of the abdomen and pelvis with contrast [facility] The patient was scanned after administration of 100 cc of Omnipaque-300 intravenous contrast. Sagittal and coronal reformatted images were obtained from the axial source images. One or more of the following dose reduction techniques were used: - Automated exposure control. - Adjustment of the mA and/or kV according to patient size. - Use of iterative reconstruction technique. DICOM images are available DLP 1164.7 mGycm. CTDIvol 19.0 mGy COMPARISON: 07/19/2017 FINDINGS: Lower thorax: Small bilateral layering effusions are seen with mild bibasilar atelectasis and this a ppears stable from prior exam. The heart is borderline enlarged unchanged.. Coronary artery calcific ations are seen in the heart. Liver: There is uniform enhancement of the liver with no focal lesion. The portal vein is intact wi thout thrombus. Biliary: The gallbladder is unremarkable without inflammation. No biliary dilatation. Pancreas: Homogeneous density and enhancement of the pancreas without visible focal lesion or cyst ic abnormality. There is no pancreatic ductal dilatation. Spleen: Unremarkable without enlargement or focal lesion. Adrenal Glands: The adrenal glands are within normal limits without mass. Urinary: The kidneys are symmetric in size bilaterally with symmetric enhancement. There are no vis ible renal or ureteral stones. There is no hydronephrosis. Gastrointestinal/peritoneum/mesentery: Right-sided pelvic drainage catheter is present extending in to the air anterior to the right psoas muscle with an area of prior inflammation. The previously see n fluid collection has significantly diminished in size. There is a small amount of residual air see n that measures up to 1.3 cm inferior to the drainage catheter with localized mesenteric fat strandi ng and residual phlegmon. Surgical changes of an appendectomy are again seen. Within the anterior me sentery there is an area of localized inflammation again seen with an area of localized fluid that m easures 1.8 cm. A previously seen focus of air within this structure is no longer present. Continued surrounding mesenteric fat stranding is seen extending superiorly. There are distended loops of sma ll bowel present without bowel obstruction. There is mild thickening of the terminal ileum adjacent to the area of prior surgery. There is a mildly fecal filled colon present. There is no free air. Trace fluid extends into the cul-de-sac and there is no new abnormal fluid collection. Lymph nodes: There are no enlarged lymph nodes. Vascular: The aorta is unremarkable. Reproductive organs: The uterus and adnexal structures are grossly within normal limits. Musculoskeletal: There is a trace fat containing hernia is seen directly superior to the umbilicus. There is no acute osseous abnormality Other: None IMPRESSION: There is placement of a right-sided pelvic drainage catheter with reduction of a previously seen flu id collection. A trace amount of residual air remains adjacent to the catheter and there is continue d localized mesenteric fat stranding with residual phlegmon. An area of localized inflammation / phlegmon in the anterior mesenteric fat of the pelvis is again s een with a small focus of localized fluid. This could represent a second focus of inflammation/infec tion. There is a fecal filled colon without obstruction. There is secondary inflammatory changes of the te rminal ileum adjacent to the surgical bed. Trace fat containing hernia is seen at the midline just superior to the umbilicus. RPTAT: AA .Reyes Caballero MD, Date Time Electronically viewed and signed by .Reyes Caballero MD, on 07/24/2017 11:57 .J/
--- NOTE | 2017-07-24 12:17 | PN ---
Date/Time of Note Date/Time of Note DATE: 07/24/17 TIME: 12:13 Assessment/Plan VTE Prophylaxis VTE Prophylaxis Intervention: ambulation, SCD's Lines/Catheters IV Catheter Type (from Nrsg): Saline Lock Assessment/Plan Chief Complaint/Hosp Course Subjective 12.18 Still has moderate abdominal pain and fever 12.19 abdominal pain has improved 12.20 mild abdominal pain 12.21 improved abdominal pain, no fevers 12.22 continued improvement, but had fever 12.23 still has fever 12.24 feeling much better overall Objective Physical exam General: Patient is laying in bed and answers questions appropriately Mentation: Patient is alert and oriented 4, Head: Normocephalic atraumatic Eyes: EOMI, pupils reactive to light Neck: Supple, nontender, midline Respiratory: Clear to auscultation bilaterally Cardiovascular: regular rate, no obvious murmurs Gastrointestinal: mildly tender to palpation, bowel sounds heard. Neurological: Moves all extremities spontaneously Skin: No new skin lesions A/P Acute appendicitis s/p lap appy POD#10 - Patient pain controlled on Toradol, opiates - Repeat CT today shows improvement, but with possible another focus of inflammation, gen surg recs appreciated -Dr. Cortez back managing patient -Will start levaquin per ID recs abdominal abscess -patient with DC with drain -levaquin per ID, but two new bacteria found on culture today -pending new sensitivities MARY ANNE- resolved - most likely prerenal - encouraged PO hydration - continue to monitor Asthma - Stable PNA on CXR - LLL PNA - Encouraged IS - continue ABX Disposition - Continue monitoring in med/surg -pending final culture sensitivities on 2 new bacteria on culture, levaquin Rx written in chart, discharging hospitalist will need to adjust/write new Rx if there are changes according to the sensitivities -[facility] Rx and doc's note for work also in chart. - drain in - plan to DC with drain w HH once fevers are gone for 24-48 hours Problems: Exam/Review of Systems Vital Signs Vitals Vital Signs Date Time Temp Pulse Resp B/P Pulse Ox O2 Delivery O2 Flow Rate FiO2 07/24/17 08:10 64 20 96 21 07/24/17 08:00 99.1 125/75 07/21/17 07:48 Aerosol Mask 07/20/17 07:35 2.0 Intake and Output 07/23/17 07/23/1707/24/17 14:59 22:59 06:59 Intake Total 150 ml 1150 ml 670 ml Output Total 20 ml 20 ml Balance 150 ml 1130 ml 650 ml Results Result Diagram: 07/24/17 0450 07/24/17 0450 Results 24 hrs Laboratory Tests Test 07/24/17 04:50 White Blood Count 14.3 H Red Blood Count 4.70 Hemoglobin 12.4 L Hematocrit 37.4 L Mean Corpuscular Volume 79.6 L Mean Corpuscular Hemoglobin 26.4 L Mean Corpuscular Hemoglobin Concent 33.2 Red Cell Distribution Width 13.8 Platelet Count 546 #H Mean Platelet Volume 9.0 Neutrophils % 67.3 Lymphocytes % 18.7 Monocytes % 8.2 Eosinophils % 3.5 Basophils % 0.5 Nucleated Red Blood Cells % 0.0 Neutrophils # 9.6 H Lymphocytes # 2.7 Monocytes # 1.2 H Eosinophils # 0.5 Basophils # 0.1 Nucleated Red Blood Cells # 0.0 Sodium Level 138 Potassium Level 4.6 Chloride Level 103 Carbon Dioxide Level 25 Anion Gap 15 Blood Urea Nitrogen 11 Creatinine 1.09 Glucose Level 92 Calcium Level 8.9 Phosphorus Level 4.4 Magnesium Level 2.1 Medications Medications Current Medications Acetaminophen (Tylenol Tab) 650 mg Q6H PRN PO PAIN LEVEL 1-3 OR FEVER Last administered on 07/21/17 17:47; Admin Dose 650 MG; Start 07/14/17 at 18:00 Acetaminophen/ Hydrocodone Bitart ([place] (5/325)) 1 tab Q6H PRN PO MODERATE PAIN LEVEL 4-6 Last administered on 07/24/17 05:33; Admin Dose 1 TAB; Start 07/14/17 at 18:00 Acetaminophen/ Hydrocodone Bitart ([place] (5/325)) 2 tab Q6H PRN PO SEVERE PAIN LEVEL 7-10 Last administered on 07/23/17 18:41; Admin Dose 2 TAB; Start 07/14 at 18:00 Morphine Sulfate (morphine) 2 mg Q4H PRN IV SEVERE PAIN LEVEL 7-10 Last administered on 07/21/17 16:31; Admin Dose 2 MG; Start 07/14/17 at 18:00 Famotidine (Pepcid) 20 mg DAILY PO Last administered on 07/24/17 09:29; Admin Dose 20 MG; Start 07/15/17 at 09:00 Morphine Sulfate (morphine) 2 mg Q2H PRN IV PAIN LEVEL 6-10 Last administered on 07/20/17 16:06; Admin Dose 2 MG; Start 07/14/17 at 22:00 Oxycodone/ Acetaminophen (Percocet (5/ 325)) 1 tab Q6H PRN PO PAIN LEVEL 6-10; Start 07/14/17 at 22:00 Acetaminophen (Tylenol Tab) 650 mg Q6H PRN PO PAIN AND OR ELEVATED TEMP Last administered on 07/18/17 13:38; Admin Dose 650 MG; Start 07/14/17 at 22:00 Ondansetron HCl (Zofran Inj) 4 mg Q6H PRN IV NAUSEA AND/OR VOMITING Last administered on 07/19/17 16:28; Admin Dose 4 MG; Start 07/14/17 at 22:00 Enoxaparin Sodium (Lovenox) 40 mg DAILY@07 SC Last administered on 07/24/17 05:19; Admin Dose 40 MG; Start 07/15/17 at 07:00 Ibuprofen (Motrin) 600 mg Q6H PRN PO PAIN LEVEL 1-5 Last administered on 09:20; Admin Dose 600 MG; Start 07/16/17 at 18:02 Silver Sulfadiazine (Thermazene 1% 25 Gm) 1 applic DAILY TOP Last administered on 07/24/17 09:29; Admin Dose 1 APPLIC; Start 07/21/17 at 09:00 Polyethylene Glycol (Miralax) 17 gm DAILY PO Last administered on 07/24/17 09 :29; Admin Dose 17 GM; Start 07/23/17 at 09:00 Diphenhydramine HCl (Benadryl) 25 mg Q6H PRN IV ITCHING Last administered on 06:44; Admin Dose 25 MG; Start 07/23/17 at 06:30 Levofloxacin (Levaquin) 750 mg DAILY@06 PO ; Start 07/25/17 at 06:00 CLAYTON VINES Jul 24, 2017 12:17
[2017-07-24 14:37] VITALS: BP 121/61; RESP 18
--- NOTE | 2017-07-24 18:36 | CONS ---
Date/Time of Note Date/Time of Note DATE: 07/24/17 TIME: 18:33 Assessment/Plan Assessment/Plan Chief Complaint/Hosp Course SUBJECTIVE: No acute events overnight. The patient is alert, feels good, no fevers overnight. INDWELLINGS: Right-sided abdominal drainage catheter. ANTIMICROBIALS: Cefepime ALLERGIES: none PHYSICAL EXAMINATION: GENERAL: Well-developed, middle-aged man who is alert, in no distress. HEENT: Head atraumatic, normocephalic. Sclerae anicteric. Buccal mucosa pink. NECK: Supple. CHEST: Rise symmetrical. Breath sounds clear. HEART: S1, S2. ABDOMEN: Soft. Bowel tones present. EXTREMITIES: Without cyanosis. ASSESSMENT: 1. Status post CT-guided intra-abdominal abscess drainage. 2. Systemic inflammatory response syndrome. 3. Status post laparoscopic appendectomy on 07/14/2017. 4. Left lower lobe pneumonia with small pleural effusion. PLAN: Patient remains stable. Will add Flagyl, await for final cx's and repeat CT abd [facility] staff Problems: Consultation Date/Type/Reason Admit Date/Time Jul 14, 2017 at 17:24 Initial Consult Date 07/14/17 Type of Consultation: ID Exam/Review of Systems Vital Signs Vitals Vital Signs Date Time Temp Pulse Resp B/P Pulse Ox O2 Delivery O2 Flow Rate FiO2 07/24/17 14:37 99.1 74 18 121/61 95 07/24/17 13:40 21 07/21/17 07:48 Aerosol Mask 07/20/17 07:35 2.0 Intake and Output 07/23/17 07/23/17 07/24/17 15:00 23:00 07:00 Intake Total 150 ml 1150 ml 670 ml Output Total 20 ml 20 ml Balance 150 ml 1130 ml 650 ml Results Result Diagram: 07/24/17 0450 07/24/17 0450 Results 24 hrs Laboratory Tests Test 07/24/17 04:50 White Blood Count 14.3 H Red Blood Count 4.70 Hemoglobin 12.4 L Hematocrit 37.4 L Mean Corpuscular Volume 79.6 L Mean Corpuscular Hemoglobin 26.4 L Mean Corpuscular Hemoglobin Concent 33.2 Red Cell Distribution Width 13.8 Platelet Count 546 #H Mean Platelet Volume 9.0 Neutrophils % 67.3 Lymphocytes % 18.7 Monocytes % 8.2 Eosinophils % 3.5 Basophils % 0.5 Nucleated Red Blood Cells % 0.0 Neutrophils # 9.6 H Lymphocytes # 2.7 Monocytes # 1.2 H Eosinophils # 0.5 Basophils # 0.1 Nucleated Red Blood Cells # 0.0 Sodium Level 138 Potassium Level 4.6 Chloride Level 103 Carbon Dioxide Level 25 Anion Gap 15 Blood Urea Nitrogen 11 Creatinine 1.09 Glucose Level 92 Calcium Level 8.9 Phosphorus Level 4.4 Magnesium Level 2.1 Medications Medications Current Medications Acetaminophen (Tylenol Tab) 650 mg Q6H PRN PO PAIN LEVEL 1-3 OR FEVER Last administered on 07/21/17 17:47; Admin Dose 650 MG; Start 07/14/17 at 18:00 Acetaminophen/ Hydrocodone Bitart ([place] (5/325)) 1 tab Q6H PRN PO MODERATE PAIN LEVEL 4-6 Last administered on 07/24/17 05:33; Admin Dose 1 TAB; Start 07/14/17 at 18:00 Acetaminophen/ Hydrocodone Bitart ([place] (5/325)) 2 tab Q6H PRN PO SEVERE PAIN LEVEL 7-10 Last administered on 07/24/17 12:23; Admin Dose 2 TAB; Start 07/14 at 18:00 Morphine Sulfate (morphine) 2 mg Q4H PRN IV SEVERE PAIN LEVEL 7-10 Last administered on 07/21/17 16:31; Admin Dose 2 MG; Start 07/14/17 at 18:00 Famotidine (Pepcid) 20 mg DAILY PO Last administered on 07/24/17 09:29; Admin Dose 20 MG; Start 07/15/17 at 09:00 Morphine Sulfate (morphine) 2 mg Q2H PRN IV PAIN LEVEL 6-10 Last administered on 07/20/17 16:06; Admin Dose 2 MG; Start 07/14/17 at 22:00 Oxycodone/ Acetaminophen (Percocet (5/ 325)) 1 tab Q6H PRN PO PAIN LEVEL 6-10 Last administered on 07/24/17 18:08; Admin Dose 1 TAB; Start 07/14/17 at 22: 00 Acetaminophen (Tylenol Tab) 650 mg Q6H PRN PO PAIN AND OR ELEVATED TEMP Last administered on 07/18/17 13:38; Admin Dose 650 MG; Start 07/14/17 at 22:00 Ondansetron HCl (Zofran Inj) 4 mg Q6H PRN IV NAUSEA AND/OR VOMITING Last administered on 07/19/17 16:28; Admin Dose 4 MG; Start 07/14/17 at 22:00 Enoxaparin Sodium (Lovenox) 40 mg DAILY@07 SC Last administered on 07/24/17 05:19; Admin Dose 40 MG; Start 07/15/17 at 07:00 Ibuprofen (Motrin) 600 mg Q6H PRN PO PAIN LEVEL 1-5 Last administered on 09:20; Admin Dose 600 MG; Start 07/16/17 at 18:02 Silver Sulfadiazine (Thermazene 1% 25 Gm) 1 applic DAILY TOP Last administered on 07/24/17 09:29; Admin Dose 1 APPLIC; Start 07/21/17 at 09:00 Polyethylene Glycol (Miralax) 17 gm DAILY PO Last administered on 07/24/17 09 :29; Admin Dose 17 GM; Start 07/23/17 at 09:00 Diphenhydramine HCl 25 mg 25 mg Q6H PRN IV ITCHING Last administered on 06:44; Admin Dose 25 MG; Start 07/23/17 at 06:30 Cefepime HCl (Maxipime 1gm/50 ml (Pmx)) 50 ml @ 100 mls/hr Q12 IVPB ; Start at 21:00 RANDOLPH BERMEO NP Jul 24, 2017 18:36
[2017-07-24 20:00] VITALS: BP 105/50; RESP 18
[2017-07-24] MEDS: metroNIDAZOLE 500 MG TAB PO SCH (21:27)
[2017-07-25 02:00] VITALS: BP 117/70; RESP 19
[2017-07-25] MEDS: HYDROCODONE/APAP (5/325) TAB PO PRN ×3 (04:25→20:35)
[2017-07-25] MEDS ORDERED: LEVOFLOXACIN 750 MG TABLET PO SCH (06:00)
[2017-07-25] MEDS: metroNIDAZOLE 500 MG TAB PO SCH ×3 (06:13→21:55)
[2017-07-25] MEDS: ENOXAPARIN 40 MG/0.4 ML SYG SC SCH (06:14)
[2017-07-25 06:17] LABS: BASOPHIL # 0.1 10^3/ul (0.0-0.1); BASOPHILS % 0.5 % (0.0-2.0); EOSINOPHILS # 0.5 10^3/ul (0.0-0.5); EOSINOPHILS % 3.9 % (0.0-7.0); HEMATOCRIT 35.8 % (42.0-52.0); HEMOGLOBIN 12.2 g/dl (14.0-18.0); LYMPHOCYTES # 2.5 10^3/ul (0.8-2.9); LYMPHOCYTES % 20.1 % (15.0-51.0); MEAN CORPUSCULAR HEMOGLOBIN 26.9 pg (29.0-33.0); MEAN CORPUSCULAR HGB CONC 34.1 g/dl (32.0-37.0); MEAN CORPUSCULAR VOLUME 78.9 fl (82.0-101.0); MONOCYTES % 8.5 % (0.0-11.0); NEUTROPHILS % 64.9 % (39.0-77.0); PLATELET COUNT 560 10^3/UL (140-415); RED BLOOD COUNT 4.54 10^6/ul (4.70-6.10); WHITE BLOOD COUNT 12.3 10^3/ul (4.8-10.8)
[2017-07-25 06:58] LABS: CREATININE 1.08 mg/dl (0.61-1.24); MAGNESIUM 2.1 mg/dl (1.7-2.5); PHOSPHORUS 4.4 mg/dl (2.5-4.9); POTASSIUM 4.7 mmol/L (3.5-5.1)
[2017-07-25] MEDS: ALBUTEROL/IPRATROPIUM (NEB) 3 ML AMP HHN SCH (07:50)
[2017-07-25 08:00] VITALS: BP 118/64; RESP 17
[2017-07-25] MEDS: CEFEPIME 1GM/50 ML (PMX) 50 ML IVPB SCH ×2 (08:51→20:36)
[2017-07-25] MEDS: POLYETHYLENE GLYCOL 17 GM PACKET PO SCH (08:51)
[2017-07-25] MEDS: FAMOTIDINE 20 MG TAB PO SCH (08:51)
[2017-07-25] MEDS: SILVER SULFADIAZINE 1% 25 GM CR TOP SCH (09:37)
[2017-07-25 14:00] VITALS: BP 122/68; RESP 18
[2017-07-25] MEDS: ALBUTEROL/IPRATROPIUM (NEB) 3 ML AMP HHN PRN (14:40)
--- NOTE | 2017-07-25 15:03 | PN ---
Date/Time of Note Date/Time of Note DATE: 07/25/17 TIME: 15:01 Assessment/Plan VTE Prophylaxis VTE Prophylaxis Intervention: LMWH Lines/Catheters [facility] Saline Lock Assessment/Plan Chief Complaint/Hosp Course Subjective: Events noted Objective: Vital signs stable, low-grade fever Physical exam No pallor icterus Regular no murmur rub gallop Clear Bs+ mild tender nondistended no r/r/g; drain C/D/I No edema Assessment and plan 1. Acute appendicitis; postop day 11 laparoscopic active appendectomy. Stable treat pain. Tolerating diet. 2. Likely peritonitis/intra-abd abscess. Stable cont antibiotics/drain care. DC discharge home if ok w surgery and ID. Needs antiibiotic recommendations 3. Chronic asthma 4. Recent pneumonia Problems: Exam/Review of Systems Vital Signs Vitals Vital Signs Date Time Temp Pulse Resp B/P Pulse Ox O2 Delivery O2 Flow Rate FiO2 07/25/17 14:00 98.4 65 18 122/68 95 07/25/17 07:50 21 07/21/17 07:48 Aerosol Mask Intake and Output 07/24/17 07/24/17 07/25/17 15:00 23:00 07:00 Intake Total 50 ml 990 ml 700 ml Output Total 20 ml 0 ml Balance 50 ml 970 ml 700 ml Results Result Diagram: 07/25/17 0532 07/25/17 0532 Results 24 hrs Laboratory Tests Test 07/25/17 05:32 White Blood Count 12.3 H Red Blood Count 4.54 L Hemoglobin 12.2 L Hematocrit 35.8 L Mean Corpuscular Volume 78.9 L Mean Corpuscular Hemoglobin 26.9 L Mean Corpuscular Hemoglobin Concent 34.1 Red Cell Distribution Width 14.0 Platelet Count 560 H Mean Platelet Volume 9.0 Neutrophils % 64.9 Lymphocytes % 20.1 Monocytes % 8.5 Eosinophils % 3.9 Basophils % 0.5 Nucleated Red Blood Cells % 0.0 Neutrophils # 8.0 H Lymphocytes # 2.5 Monocytes # 1.0 H Eosinophils # 0.5 Basophils # 0.1 Nucleated Red Blood Cells # 0.0 Sodium Level 138 Potassium Level 4.7 Chloride Level 103 Carbon Dioxide Level 24 Anion Gap 16 Blood Urea Nitrogen 14 Creatinine 1.08 Glucose Level 103 Calcium Level 9.0 Phosphorus Level 4.4 Magnesium Level 2.1 Medications Medications Current Medications Acetaminophen (Tylenol Tab) 650 mg Q6H PRN PO PAIN LEVEL 1-3 OR FEVER Last administered on 07/21/17 17:47; Admin Dose 650 MG; Start 07/14/17 at 18:00 Acetaminophen/ Hydrocodone Bitart ([place] (5/325)) 1 tab Q6H PRN PO MODERATE PAIN LEVEL 4-6 Last administered on 07/25/17 04:25; Admin Dose 1 TAB; Start 07/14/17 at 18:00 Acetaminophen/ Hydrocodone Bitart ([place] (5/325)) 2 tab Q6H PRN PO SEVERE PAIN LEVEL 7-10 Last administered on 07/25/17 13:20; Admin Dose 2 TAB; Start 07/14 at 18:00 Morphine Sulfate (morphine) 2 mg Q4H PRN IV SEVERE PAIN LEVEL 7-10 Last administered on 07/21/17 16:31; Admin Dose 2 MG; Start 07/14/17 at 18:00 Famotidine (Pepcid) 20 mg DAILY PO Last administered on 07/25/17 08:51; Admin Dose 20 MG; Start 07/15/17 at 09:00 Morphine Sulfate (morphine) 2 mg Q2H PRN IV PAIN LEVEL 6-10 Last administered on 07/20/17 16:06; Admin Dose 2 MG; Start 07/14/17 at 22:00 Oxycodone/ Acetaminophen (Percocet (5/ 325)) 1 tab Q6H PRN PO PAIN LEVEL 6-10 Last administered on 07/24/17 18:08; Admin Dose 1 TAB; Start 07/14/17 at 22: 00 Acetaminophen (Tylenol Tab) 650 mg Q6H PRN PO PAIN AND OR ELEVATED TEMP Last administered on 07/18/17 13:38; Admin Dose 650 MG; Start 07/14/17 at 22:00 Ondansetron HCl (Zofran Inj) 4 mg Q6H PRN IV NAUSEA AND/OR VOMITING Last administered on 07/19/17 16:28; Admin Dose 4 MG; Start 07/14/17 at 22:00 Enoxaparin Sodium (Lovenox) 40 mg DAILY@07 SC Last administered on 07/25/17 06:14; Admin Dose 40 MG; Start 07/15/17 at 07:00 Ibuprofen (Motrin) 600 mg Q6H PRN PO PAIN LEVEL 1-5 Last administered on 09:20; Admin Dose 600 MG; Start 07/16/17 at 18:02 Silver Sulfadiazine (Thermazene 1% 25 Gm) 1 applic DAILY TOP Last administered on 07/25/17 09:37; Admin Dose 1 APPLIC; Start 07/21/17 at 09:00 Polyethylene Glycol (Miralax) 17 gm DAILY PO Last administered on 07/25/17 08 :51; Admin Dose 17 GM; Start 07/23/17 at 09:00 Diphenhydramine HCl 25 mg 25 mg Q6H PRN IV ITCHING Last administered on 06:44; Admin Dose 25 MG; Start 07/23/17 at 06:30 Cefepime HCl (Maxipime 1gm/50 ml (Pmx)) 50 ml @ 100 mls/hr Q12 IVPB Last administered on 07/25/17 08:51; Admin Dose 100 MLS/HR; Start 07/24/17 at 21: 00 Metronidazole (Flagyl) 500 mg Q8 PO Last administered on 07/25/17 13:20; Admin Dose 500 MG; Start 07/24/17 at 22:00 MARBELLA ARAUZ MD Jul 25, 2017 15:03
--- NOTE | 2017-07-25 18:36 | CONS ---
Date/Time of Note Date/Time of Note DATE: 07/25/17 TIME: 18:34 Assessment/Plan Assessment/Plan Chief Complaint/Hosp Course SUBJECTIVE: No acute events overnight. The patient is alert, feels good INDWELLINGS: Right-sided abdominal drainage catheter. ANTIMICROBIALS: Cefepime, Flagyl ALLERGIES: none PHYSICAL EXAMINATION: GENERAL: Well-developed, middle-aged man who is alert, in no distress. HEENT: Head atraumatic, normocephalic. Sclerae anicteric. Buccal mucosa pink. NECK: Supple. CHEST: Rise symmetrical. Breath sounds clear. HEART: S1, S2. ABDOMEN: Soft. Bowel tones present. EXTREMITIES: Without cyanosis. ASSESSMENT: 1. Status post CT-guided intra-abdominal abscess drainage. 2. Systemic inflammatory response syndrome. 3. Status post laparoscopic appendectomy on 07/14/2017. 4. Left lower lobe pneumonia with small pleural effusion. PLAN: Patient remains stable. Repeat CT abdomen noted, recommend keeping on current abx for 2 weeks, f/u with surgery outpatient for further rec-s [facility] staff Problems: Consultation Date/Type/Reason Admit Date/Time Jul 14, 2017 at 17:24 Initial Consult Date 07/14/17 Type of Consultation: ID Exam/Review of Systems Vital Signs Vitals Vital Signs Date Time Temp Pulse Resp B/P Pulse Ox O2 Delivery O2 Flow Rate FiO2 07/25/17 14:40 75 20 21 07/25/17 14:00 98.4 122/68 95 07/21/17 07:48 Aerosol Mask Intake and Output 07/24/17 07/24/17 07/25/17 15:00 23:00 07:00 Intake Total 50 ml 990 ml 700 ml Output Total 20 ml 0 ml Balance 50 ml 970 ml 700 ml Results Result Diagram: 07/25/17 0532 07/25/17 0532 Results 24 hrs Laboratory Tests Test 07/25/17 05:32 White Blood Count 12.3 H Red Blood Count 4.54 L Hemoglobin 12.2 L Hematocrit 35.8 L Mean Corpuscular Volume 78.9 L Mean Corpuscular Hemoglobin 26.9 L Mean Corpuscular Hemoglobin Concent 34.1 Red Cell Distribution Width 14.0 Platelet Count 560 H Mean Platelet Volume 9.0 Neutrophils % 64.9 Lymphocytes % 20.1 Monocytes % 8.5 Eosinophils % 3.9 Basophils % 0.5 Nucleated Red Blood Cells % 0.0 Neutrophils # 8.0 H Lymphocytes # 2.5 Monocytes # 1.0 H Eosinophils # 0.5 Basophils # 0.1 Nucleated Red Blood Cells # 0.0 Sodium Level 138 Potassium Level 4.7 Chloride Level 103 Carbon Dioxide Level 24 Anion Gap 16 Blood Urea Nitrogen 14 Creatinine 1.08 Glucose Level 103 Calcium Level 9.0 Phosphorus Level 4.4 Magnesium Level 2.1 Medications Medications Current Medications Acetaminophen (Tylenol Tab) 650 mg Q6H PRN PO PAIN LEVEL 1-3 OR FEVER Last administered on 07/21/17 17:47; Admin Dose 650 MG; Start 07/14/17 at 18:00 Acetaminophen/ Hydrocodone Bitart ([place] (5/325)) 1 tab Q6H PRN PO MODERATE PAIN LEVEL 4-6 Last administered on 07/25/17 04:25; Admin Dose 1 TAB; Start 07/14/17 at 18:00 Acetaminophen/ Hydrocodone Bitart ([place] (5/325)) 2 tab Q6H PRN PO SEVERE PAIN LEVEL 7-10 Last administered on 07/25/17 13:20; Admin Dose 2 TAB; Start 07/14 at 18:00 Morphine Sulfate (morphine) 2 mg Q4H PRN IV SEVERE PAIN LEVEL 7-10 Last administered on 07/21/17 16:31; Admin Dose 2 MG; Start 07/14/17 at 18:00 Famotidine (Pepcid) 20 mg DAILY PO Last administered on 07/25/17 08:51; Admin Dose 20 MG; Start 07/15/17 at 09:00 Oxycodone/ Acetaminophen (Percocet (5/ 325)) 1 tab Q6H PRN PO PAIN LEVEL 6-10 Last administered on 07/24/17 18:08; Admin Dose 1 TAB; Start 07/14/17 at 22: 00 Acetaminophen (Tylenol Tab) 650 mg Q6H PRN PO PAIN AND OR ELEVATED TEMP Last administered on 07/18/17 13:38; Admin Dose 650 MG; Start 07/14/17 at 22:00 Ondansetron HCl (Zofran Inj) 4 mg Q6H PRN IV NAUSEA AND/OR VOMITING Last administered on 07/19/17 16:28; Admin Dose 4 MG; Start 07/14/17 at 22:00 Enoxaparin Sodium (Lovenox) 40 mg DAILY@07 SC Last administered on 07/25/17 06:14; Admin Dose 40 MG; Start 07/15/17 at 07:00 Ibuprofen (Motrin) 600 mg Q6H PRN PO PAIN LEVEL 1-5 Last administered on 09:20; Admin Dose 600 MG; Start 07/16/17 at 18:02 Silver Sulfadiazine (Thermazene 1% 25 Gm) 1 applic DAILY TOP Last administered on 07/25/17 09:37; Admin Dose 1 APPLIC; Start 07/21/17 at 09:00 Polyethylene Glycol (Miralax) 17 gm DAILY PO Last administered on 07/25/17 08 :51; Admin Dose 17 GM; Start 07/23/17 at 09:00 Diphenhydramine HCl 25 mg 25 mg Q6H PRN IV ITCHING Last administered on 06:44; Admin Dose 25 MG; Start 07/23/17 at 06:30 Cefepime HCl (Maxipime 1gm/50 ml (Pmx)) 50 ml @ 100 mls/hr Q12 IVPB Last administered on 07/25/17 08:51; Admin Dose 100 MLS/HR; Start 07/24/17 at 21: 00 Metronidazole (Flagyl) 500 mg Q8 PO Last administered on 07/25/17 13:20; Admin Dose 500 MG; Start 07/24/17 at 22:00 RANDOLPH BERMEO NP Jul 25, 2017 18:36
[2017-07-25 20:08] VITALS: BP 127/73; RESP 18
[2017-07-26 02:49] VITALS: BP 118/71; RESP 16
[2017-07-26] MEDS: metroNIDAZOLE 500 MG TAB PO SCH ×3 (06:25→22:09)
[2017-07-26] MEDS: ENOXAPARIN 40 MG/0.4 ML SYG SC SCH (06:26)
[2017-07-26 06:37] LABS: BASOPHIL # 0.1 10^3/ul (0.0-0.1); BASOPHILS % 0.6 % (0.0-2.0); EOSINOPHILS # 0.5 10^3/ul (0.0-0.5); EOSINOPHILS % 3.8 % (0.0-7.0); HEMATOCRIT 36.9 % (42.0-52.0); HEMOGLOBIN 12.4 g/dl (14.0-18.0); LYMPHOCYTES # 2.6 10^3/ul (0.8-2.9); LYMPHOCYTES % 20.5 % (15.0-51.0); MEAN CORPUSCULAR HEMOGLOBIN 26.7 pg (29.0-33.0); MEAN CORPUSCULAR HGB CONC 33.6 g/dl (32.0-37.0); MEAN CORPUSCULAR VOLUME 79.4 fl (82.0-101.0); MONOCYTE # 1.2 10^3/ul (0.3-0.9); MONOCYTES % 9.6 % (0.0-11.0); NEUTROPHIL # 7.9 10^3/ul (1.6-7.5); NEUTROPHILS % 63.4 % (39.0-77.0); PLATELET COUNT 655 10^3/UL (140-415); RED BLOOD COUNT 4.65 10^6/ul (4.70-6.10); RED CELL DISTRIBUTION WIDTH 14.2 % (11.5-14.5); WHITE BLOOD COUNT 12.5 10^3/ul (4.8-10.8)
[2017-07-26 07:26] LABS: ALBUMIN 3.5 g/dl (3.3-4.9); ALBUMIN/GLOBULIN RATIO 0.83; BILIRUBIN,INDIRECT 0.2 mg/dl (0-1.1); BILIRUBIN,TOTAL 0.2 mg/dl (0.2-1.3); CALCIUM 9.4 mg/dl (8.4-10.2); CREATININE 1.1 mg/dl (0.61-1.24); MAGNESIUM 1.9 mg/dl (1.7-2.5); PHOSPHORUS 4.5 mg/dl (2.5-4.9); POTASSIUM 4.5 mmol/L (3.5-5.1); TOTAL PROTEIN 7.7 g/dl (6.1-8.1)
[2017-07-26 07:56] VITALS: BP 119/78; RESP 18
[2017-07-26] MEDS: POLYETHYLENE GLYCOL 17 GM PACKET PO SCH (08:40)
[2017-07-26] MEDS: HYDROCODONE/APAP (5/325) TAB PO PRN ×2 (08:41→20:16)
[2017-07-26] MEDS: FAMOTIDINE 20 MG TAB PO SCH (08:41)
[2017-07-26] MEDS: CEFEPIME 1GM/50 ML (PMX) 50 ML IVPB SCH ×2 (08:41→20:17)
[2017-07-26] MEDS: SILVER SULFADIAZINE 1% 25 GM CR TOP SCH (09:07)
[2017-07-26 14:39] VITALS: BP 115/66; RESP 18
[2017-07-26 14:55] LABS: THYROID STIMULATING HORMONE 3.4 MIU/L (0.465-4.680)
[2017-07-26] MEDS ORDERED: LIDOCAINE 1% (MPF) 5 ML VIAL SC ONE (16:00)
--- NOTE | 2017-07-26 16:09 | DS ---
Date/Time of Note Date/Time of Note DATE: 07/26/17 TIME: 16:02 Discharge Summary Admission/Discharge Info Admit Date/Time Jul 14, 2017 at 17:24 Discharge Date/Time Discharge Diagnosis Appendicitis; peritonitis Patient Condition: Stable Procedures Laparoscopic appendectomy Preoperative Diagnosis Acute appendicitis Postoperative Diagnosis Same Operation/Procedure Performed Laparoscopic appendectomy CT A/ P 07/24 IMPRESSION: There is placement of a right-sided pelvic drainage catheter with reduction of a previously seen fluid collection. A trace amount of residual air remains adjacent to the catheter and there is continued localized mesenteric fat stranding with residual phlegmon. An area of localized inflammation / phlegmon in the anterior mesenteric fat of the pelvis is again seen with a small focus of localized fluid. This could represent a second focus of inflammation/infection. There is a fecal filled colon without obstruction. There is secondary inflammatory changes of the terminal ileum adjacent to the surgical bed. Trace fat containing hernia is seen at the midline just superior to the umbilicus. RPTAT: AA .Reyes Caballero MD, MD Hx of Present Illness 31-year-old gentleman admitted with abdominal pain. Hospital Course Subjective: 07/25 Events noted 07/26: No events. Stable and fit for discharge on 2 weeks of antibiotics. Home health arranged for drain care. Will need to follow-up with surgery and consider repeat imaging and drain removal. O: Vss, low-grade fever Physical exam No pallor icterus Regular no murmur rub gallop Clear Bs+ mild tender nondistended no r/r/g; drain C/D/I No edema Assessment and plan 1. Acute appendicitis; postop day 12, lap appendectomy. Stable treat pain. Tolerating diet. Pathology: MICROSCOPIC DIAGNOSIS: Appendix: -- Acute appendicitis with transmural perforation. -- There is no evidence of malignancy. 07/14/17; Date Received: 07/15/17 2. Likely peritonitis/intra-abd abscess. s/p IR drainage and drain placement. growth of multiple organisms. Stable finish antibiotics; cont drain care at home. DC home. I spoke w surgery and ID. 3. Chr asthma 4. Recent pneumonia Home Meds Active Scripts Hydrocodone Bit-Acetaminophen (Hydrocodone Bit-APAP) 5-325MG Tablet, 1 TAB PO Q8 Y for MODERATE PAIN LEVEL 4-6 for 14 Days, #42 TAB Prov:CLAYTON VINES 07/24/17 Levofloxacin* (Levaquin*) 750 Mg Tablet, 750 MG PO DAILY@06 for 9 Days, #9 TAB Prov:CLAYTON VINES 07/24/17 Reported Medications Albuterol Sulfate* (Ventolin HFA*) 18 Gm Hfa.aer.ad, 2 PUFF INHALATION NEEDED , #1 INHALER 07/14/17 Follow-up Plan Primary 1 week General surgery 1 week Primary Care Provider Care Physician No Primary Time spent on discharge: > 30 minutes Pending Labs Laboratory Tests Test 07/26/17 05:11 White Blood Count 12.510^3/ul (4.8-10.8) Red Blood Count 4.6510^6/ul (4.70-6.10) Hemoglobin 12.4g/dl (14.0-18.0) Hematocrit 36.9% (42.0-52.0) Mean Corpuscular Volume 79.4fl (82.0-101.0) Mean Corpuscular Hemoglobin 26.7pg (29.0-33.0) Mean Corpuscular Hemoglobin Concent 33.6g/dl (32.0-37.0) Red Cell Distribution Width 14.2% (11.5-14.5) Platelet Count 74246^3/UL (140-415) Mean Platelet Volume 9.0fl (7.4-10.4) Neutrophils % 63.4% (39.0-77.0) Lymphocytes % 20.5% (15.0-51.0) Monocytes % 9.6% (0.0-11.0) Eosinophils % 3.8% (0.0-7.0) Basophils % 0.6% (0.0-2.0) Nucleated Red Blood Cells % 0.0/100WBC (0.0-0.0) Neutrophils # 7.910^3/ul (1.6-7.5) Lymphocytes # 2.610^3/ul (0.8-2.9) Monocytes # 1.210^3/ul (0.3-0.9) Eosinophils # 0.510^3/ul (0.0-0.5) Basophils # 0.110^3/ul (0.0-0.1) Nucleated Red Blood Cells # 0.010^3/ul (0.0-0.0) Sodium Level 140mmol/L (135-144) Potassium Level 4.5mmol/L (3.5-5.1) Chloride Level 105mmol/L (97-110) Carbon Dioxide Level 24mmol/L (21-31) Anion Gap 16 (8-16) Blood Urea Nitrogen 16mg/dl (7-20) Creatinine 1.10mg/dl (0.61-1.24) Glucose Level 100mg/dl (70-220) Hemoglobin A1c 5.7% (0-5.9) Calcium Level 9.4mg/dl (8.4-10.2) Phosphorus Level 4.5mg/dl (2.5-4.9) Magnesium Level 1.9mg/dl (1.7-2.5) Total Bilirubin 0.2mg/dl (0.2-1.3) Direct Bilirubin 0.00mg/dl (0.00-0.20) Indirect Bilirubin 0.2mg/dl (0-1.1) Aspartate Amino Transf (AST/SGOT) 33IU/L (15-46) Alanine Aminotransferase (ALT/SGPT) 68IU/L (13-69) Alkaline Phosphatase 73IU/L (42-121) Total Protein 7.7g/dl (6.1-8.1) Albumin 3.5g/dl (3.3-4.9) Globulin 4.20g/dl (1.3-3.2) Albumin/Globulin Ratio 0.83 Thyroid Stimulating Hormone (TSH) 3.400MIU/L (0.465-4.680) MARBELLA ARAUZ MD Jul 26, 2017 16:09
--- NOTE | 2017-07-26 16:10 | PDOCDIS ---
Discharge Instructions DIAGNOSIS Discharge Diagnosis Appendicitis; peritonitis CONDITION Patient Condition: Stable HOME CARE INSTRUCTIONS: Special Diet: REGULAR ACTIVITY: Activity Restrictions: Slowly Increase Activity Avoid heavy lifting FOLLOW UP/APPOINTMENTS Follow-up Plan Primary 1 week General surgery 1 week MARBELLA ARAUZ MD Jul 26, 2017 16:10
[2017-07-26] MEDS ORDERED: METR500T PO (16:13)
[2017-07-26] MEDS ORDERED: ACET325T33 PO (16:13)
[2017-07-26] MEDS ORDERED: LACT1CAP28 PO (16:13)
[2017-07-26] MEDS ORDERED: POLY17PO6 PO (16:13)
[2017-07-26] MEDS ORDERED: IBUP-1542 PO (16:13)
[2017-07-26] MEDS ORDERED: SILV25CR7 TOP (16:13)
[2017-07-26] MEDS ORDERED: LEVO750T25 PO (17:09)
[2017-07-26] MEDS: LACTOBACILLUS RHAMNOSUS CAP PO SCH (20:16)
--- NOTE | 2017-07-26 20:17 | CONS ---
Date/Time of Note Date/Time of Note DATE: 07/26/17 TIME: 20:16 Assessment/Plan Assessment/Plan Chief Complaint/Hosp Course SUBJECTIVE: No acute events overnight. The patient is alert, feels good INDWELLINGS: Right-sided abdominal drainage catheter. ANTIMICROBIALS: Cefepime, Flagyl ALLERGIES: none PHYSICAL EXAMINATION: GENERAL: Well-developed, middle-aged man who is alert, in no distress. HEENT: Head atraumatic, normocephalic. Sclerae anicteric. Buccal mucosa pink. NECK: Supple. CHEST: Rise symmetrical. Breath sounds clear. HEART: S1, S2. ABDOMEN: Soft. Bowel tones present. EXTREMITIES: Without cyanosis. ASSESSMENT: 1. Status post CT-guided intra-abdominal abscess drainage. 2. Systemic inflammatory response syndrome. 3. Status post laparoscopic appendectomy on 07/14/2017. 4. Left lower lobe pneumonia with small pleural effusion. PLAN: Patient remains stable. Ok dc on current abx for 2 weeks, f/u with surgery outpatient for further rec-s DW staff/pt/family Problems: Consultation Date/Type/Reason Admit Date/Time Jul 14, 2017 at 17:24 Initial Consult Date 07/14/17 Type of Consultation: ID Exam/Review of Systems Vital Signs Vitals Vital Signs Date Time Temp Pulse Resp B/P Pulse Ox O2 Delivery O2 Flow Rate FiO2 07/26/17 14:39 97.3 62 18 115/66 98 07/26/17 13:59 21 Intake and Output 07/25/17 07/25/17 07/26/17 15:00 23:00 07:00 Intake Total 50 ml 1106 ml 800 ml Output Total 15 ml 10 ml Balance 50 ml 1091 ml 790 ml Results Result Diagram: 07/26/17 0511 07/26/17 0511 Results 24 hrs Laboratory Tests Test 07/26/17 05:11 White Blood Count 12.5 H Red Blood Count 4.65 L Hemoglobin 12.4 L Hematocrit 36.9 L Mean Corpuscular Volume 79.4 L Mean Corpuscular Hemoglobin 26.7 L Mean Corpuscular Hemoglobin Concent 33.6 Red Cell Distribution Width 14.2 Platelet Count 655 H Mean Platelet Volume 9.0 Neutrophils % 63.4 Lymphocytes % 20.5 Monocytes % 9.6 Eosinophils % 3.8 Basophils % 0.6 Nucleated Red Blood Cells % 0.0 Neutrophils # 7.9 H Lymphocytes # 2.6 Monocytes # 1.2 H Eosinophils # 0.5 Basophils # 0.1 Nucleated Red Blood Cells # 0.0 Sodium Level 140 Potassium Level 4.5 Chloride Level 105 Carbon Dioxide Level 24 Anion Gap 16 Blood Urea Nitrogen 16 Creatinine 1.10 Glucose Level 100 Hemoglobin A1c 5.7 Calcium Level 9.4 Phosphorus Level 4.5 Magnesium Level 1.9 Total Bilirubin 0.2 Direct Bilirubin 0.00 Indirect Bilirubin 0.2 Aspartate Amino Transf (AST/SGOT) 33 Alanine Aminotransferase (ALT/SGPT) 68 Alkaline Phosphatase 73 Total Protein 7.7 Albumin 3.5 Globulin 4.20 H Albumin/Globulin Ratio 0.83 Thyroid Stimulating Hormone (TSH) 3.400 Medications Medications Current Medications Acetaminophen/ Hydrocodone Bitart ([place] (5/325)) 1 tab Q6H PRN PO MODERATE PAIN LEVEL 4-6 Last administered on 07/25/17 20:35; Admin Dose 1 TAB; Start 07/14/17 at 18:00 Acetaminophen/ Hydrocodone Bitart ([place] (5/325)) 2 tab Q6H PRN PO SEVERE PAIN LEVEL 7-10 Last administered on 07/26/17 08:41; Admin Dose 2 TAB; Start 07/14 at 18:00 Morphine Sulfate (morphine) 2 mg Q4H PRN IV SEVERE PAIN LEVEL 7-10 Last administered on 07/21/17 16:31; Admin Dose 2 MG; Start 07/14/17 at 18:00 Famotidine (Pepcid) 20 mg DAILY PO Last administered on 07/26/17 08:41; Admin Dose 20 MG; Start 07/15/17 at 09:00 Oxycodone/ Acetaminophen (Percocet (5/ 325)) 1 tab Q6H PRN PO PAIN LEVEL 6-10 Last administered on 07/24/17 18:08; Admin Dose 1 TAB; Start 07/14/17 at 22: 00 Acetaminophen (Tylenol Tab) 650 mg Q6H PRN PO PAIN AND OR ELEVATED TEMP Last administered on 07/18/17 13:38; Admin Dose 650 MG; Start 07/14/17 at 22:00 Ondansetron HCl (Zofran Inj) 4 mg Q6H PRN IV NAUSEA AND/OR VOMITING Last administered on 07/19/17 16:28; Admin Dose 4 MG; Start 07/14/17 at 22:00 Enoxaparin Sodium (Lovenox) 40 mg DAILY@07 SC Last administered on 07/26/17 06:26; Admin Dose 40 MG; Start 07/15/17 at 07:00 Ibuprofen (Motrin) 600 mg Q6H PRN PO PAIN LEVEL 1-5 Last administered on 09:20; Admin Dose 600 MG; Start 07/16/17 at 18:02 Silver Sulfadiazine (Thermazene 1% 25 Gm) 1 applic DAILY TOP Last administered on 07/26/17 09:07; Admin Dose 1 APPLIC; Start 07/21/17 at 09:00 Polyethylene Glycol (Miralax) 17 gm DAILY PO Last administered on 07/26/17 08 :40; Admin Dose 17 GM; Start 07/23/17 at 09:00 Diphenhydramine HCl 25 mg 25 mg Q6H PRN IV ITCHING Last administered on 06:44; Admin Dose 25 MG; Start 07/23/17 at 06:30 Cefepime HCl (Maxipime 1gm/50 ml (Pmx)) 50 ml @ 100 mls/hr Q12 IVPB Last administered on 07/26/17 08:41; Admin Dose 100 MLS/HR; Start 07/24/17 at 21: 00 Metronidazole (Flagyl) 500 mg Q8 PO Last administered on 07/26/17 14:13; Admin Dose 500 MG; Start 07/24/17 at 22:00 Lactobacillus Acidophilus/ Rhamnosus (Culturelle) 1 cap BID PO ; Start at 21:00 RANDOLPH BERMEO NP Jul 26, 2017 20:17
[2017-07-26 20:46] VITALS: BP 107/58; RESP 18
[2017-07-27 02:39] VITALS: BP 124/70; RESP 18
[2017-07-27] MEDS: metroNIDAZOLE 500 MG TAB PO SCH ×3 (06:10→21:16)
[2017-07-27] MEDS: ENOXAPARIN 40 MG/0.4 ML SYG SC SCH (06:58)
[2017-07-27 08:07] VITALS: BP 112/70; RESP 16
[2017-07-27] MEDS: LACTOBACILLUS RHAMNOSUS CAP PO SCH ×2 (08:33→20:23)
[2017-07-27] MEDS: FAMOTIDINE 20 MG TAB PO SCH (08:33)
[2017-07-27] MEDS: CEFEPIME 1GM/50 ML (PMX) 50 ML IVPB SCH ×2 (08:33→20:25)
[2017-07-27] MEDS: POLYETHYLENE GLYCOL 17 GM PACKET PO SCH (08:33)
[2017-07-27] MEDS: SILVER SULFADIAZINE 1% 25 GM CR TOP SCH (10:11)
--- NOTE | 2017-07-27 13:57 | PN ---
Date/Time of Note Date/Time of Note DATE: 07/27/17 TIME: 13:55 Assessment/Plan VTE Prophylaxis VTE Prophylaxis Intervention: SCD's Lines/Catheters IV Catheter Type (from Nrsg): Sal[place] Lock Assessment/Plan Chief Complaint/Hosp Course Subjective: Patient not discharged yesterday because did not have PICC or antibiotics set up yesterday evening. Patient still waiting for home IV antibiotics to be set up by case management, and still waiting for PICC placement. According drain came out earlier today, minimal drainage from the incision site otherwise no acute events overnight. Objective: Vital signs stable, Physical exam No pallor icterus Regular no murmur rub gallop Clear Bs+ mild tender nondistended no r/r/g; drain C/D/I No edema Assessment and plan: 31 M with: 1. Acute appendicitis; postop day 13 laparoscopic active appendectomy, with some postop abscess. [place], follow-up surgery recommended is, continue antibiotic. Tolerating diet. 2. Likely peritonitis/intra-abd abscess. Stable cont antibiotics- -needs 2 weeks of antibiotics total. Once PICC placed as well as home antibiotics set up , likely discharge home in the next 12-24 hours. 3. Chronic asthma -stable, monitor 4. Recent pneumonia -resolved, monitor Problems: Exam/Review of Systems Vital Signs Vitals Vital Signs Date Time Temp Pulse Resp B/P Pulse Ox O2 Delivery O2 Flow Rate FiO2 07/27/17 08:07 98.4 64 16 112/70 98 07/26/17 13:59 21 Intake and Output 07/26/17 07/26/17 07/27/17 15:00 23:00 07:00 Intake Total 50 ml 1000 ml 680 ml Output Total 10 ml 30 ml Balance 40 ml 970 ml 680 ml Results Result Diagram: 07/26/17 0511 07/26/17 0511 Medications Medications Current Medications Acetaminophen/ Hydrocodone Bitart ([place] (5/325)) 1 tab Q6H PRN PO MODERATE PAIN LEVEL 4-6 Last administered on 07/26/17 20:16; Admin Dose 1 TAB; Start 07/14/17 at 18:00 Acetaminophen/ Hydrocodone Bitart ([place] (5/325)) 2 tab Q6H PRN PO SEVERE PAIN LEVEL 7-10 Last administered on 07/26/17 08:41; Admin Dose 2 TAB; Start 07/14 at 18:00 Morphine Sulfate (morphine) 2 mg Q4H PRN IV SEVERE PAIN LEVEL 7-10 Last administered on 07/21/17 16:31; Admin Dose 2 MG; Start 07/14/17 at 18:00 Famotidine (Pepcid) 20 mg DAILY PO Last administered on 07/27/17 08:33; Admin Dose 20 MG; Start 07/15/17 at 09:00 Oxycodone/ Acetaminophen (Percocet (5/ 325)) 1 tab Q6H PRN PO PAIN LEVEL 6-10 Last administered on 07/24/17 18:08; Admin Dose 1 TAB; Start 07/14/17 at 22: 00 Acetaminophen (Tylenol Tab) 650 mg Q6H PRN PO PAIN AND OR ELEVATED TEMP Last administered on 07/18/17 13:38; Admin Dose 650 MG; Start 07/14/17 at 22:00 Ondansetron HCl (Zofran Inj) 4 mg Q6H PRN IV NAUSEA AND/OR VOMITING Last administered on 07/19/17 16:28; Admin Dose 4 MG; Start 07/14/17 at 22:00 Enoxaparin Sodium (Lovenox) 40 mg DAILY@07 SC Last administered on 07/26/17 06:26; Admin Dose 40 MG; Start 07/15/17 at 07:00 Ibuprofen (Motrin) 600 mg Q6H PRN PO PAIN LEVEL 1-5 Last administered on 09:20; Admin Dose 600 MG; Start 07/16/17 at 18:02 Silver Sulfadiazine (Thermazene 1% 25 Gm) 1 applic DAILY TOP Last administered on 07/26/17 09:07; Admin Dose 1 APPLIC; Start 07/21/17 at 09:00 Polyethylene Glycol (Miralax) 17 gm DAILY PO Last administered on 07/27/17 08 :33; Admin Dose 17 GM; Start 07/23/17 at 09:00 Diphenhydramine HCl 25 mg 25 mg Q6H PRN IV ITCHING Last administered on 06:44; Admin Dose 25 MG; Start 07/23/17 at 06:30 Cefepime HCl (Maxipime 1gm/50 ml (Pmx)) 50 ml @ 100 mls/hr Q12 IVPB Last administered on 07/27/17 08:33; Admin Dose 100 MLS/HR; Start 07/24/17 at 21: 00 Metronidazole (Flagyl) 500 mg Q8 PO Last administered on 07/27/17 06:10; Admin Dose 500 MG; Start 07/24/17 at 22:00 Lactobacillus Acidophilus/ Rhamnosus (Culturelle) 1 cap BID PO Last administered on 07/27/17 08:33; Admin Dose 1 CAP; Start 07/26/17 at 21:00 JHONNY ABREU Jul 27, 2017 13:57
[2017-07-27 14:28] VITALS: BP 111/70; RESP 18
--- NOTE | 2017-07-27 17:10 | RADRPT ---
PROCEDURE: Ultrasound guidance for placement of needle in left upper extremity vein. CLINICAL INDICATION: Venous access. TECHNIQUE: Limited sonography of the left upper extremity was performed. Ultrasound images were recorded and s tored in the patient's medical record. COMPARISON: None. FINDINGS: The ultrasound images demonstrate a patent left upper extremity vein. The PICC line was inserted by the PICC line nurse. IMPRESSION: 1. Ultrasound guidance for a needle placement in a left upper extremity vein. 2. The left upper extremity vein is patent. RPTAT: QQ .Master Petersen MD, MD Date Time Electronically viewed and signed by .Master Petersen MD, on 07/27/2017 17:10 .R/
--- NOTE | 2017-07-27 17:15 | RADRPT ---
PROCEDURE: XR Chest. CLINICAL INDICATION: Check PICC line position. TECHNIQUE: Single frontal view. COMPARISON: July 19, 2017. FINDINGS: There is a left arm PICC line with the tip in the lower superior vena cava. There is mild left basi lar atelectasis. The lungs are otherwise clear. The heart size is normal. There is no pleural effusion. There is no pneumothorax. IMPRESSION: 1. Left arm PICC line tip in satisfactory position. 2. Mild left basilar atelectasis. 3. Otherwise normal chest radiograph. RPTAT: QQ .Master Petersen MD, MD Date Time Electronically viewed and signed by .Master Petersen MD, MD on 07/27/2017 17:15 .R/
--- NOTE | 2017-07-27 20:07 | CONS ---
Date/Time of Note Date/Time of Note DATE: 07/27/17 TIME: 20:06 Assessment/Plan Assessment/Plan Chief Complaint/Hosp Course SUBJECTIVE: No acute event. Alert, looks comfortable INDWELLINGS: Right-sided abdominal drainage catheter. ANTIMICROBIALS: Cefepime, Flagyl ALLERGIES: none PHYSICAL EXAMINATION: GENERAL: Well-developed, middle-aged man who is alert, in no distress. HEENT: Head atraumatic, normocephalic. Sclerae anicteric. Buccal mucosa pink. NECK: Supple. CHEST: Rise symmetrical. Breath sounds clear. HEART: S1, S2. ABDOMEN: Soft. Bowel tones present. EXTREMITIES: Without cyanosis. ASSESSMENT: 1. Status post CT-guided intra-abdominal abscess drainage. 2. Systemic inflammatory response syndrome. 3. Status post laparoscopic appendectomy on 07/14/2017. 4. Left lower lobe pneumonia with small pleural effusion. PLAN: Patient remains stable, pending dc on current abx for 2 more weeks, f/u with surgery outpatient for further rec-s DW staff Problems: Consultation Date/Type/Reason Admit Date/Time Jul 14, 2017 at 17:24 Initial Consult Date 07/14/17 Type of Consultation: ID Exam/Review of Systems Vital Signs Vitals Vital Signs Date Time Temp Pulse Resp B/P Pulse Ox O2 Delivery O2 Flow Rate FiO2 07/27/17 14:28 99.0 63 18 111/70 97 07/26/17 13:59 21 Intake and Output 07/26/17 07/26/17 07/27/17 15:00 23:00 07:00 Intake Total 50 ml 1000 ml 680 ml Output Total 10 ml 30 ml Balance 40 ml 970 ml 680 ml Results Result Diagram: 07/26/17 0511 07/26/17 0511 Medications Medications Current Medications Acetaminophen/ Hydrocodone Bitart ([place] (5/325)) 1 tab Q6H PRN PO MODERATE PAIN LEVEL 4-6 Last administered on 07/26/17 20:16; Admin Dose 1 TAB; Start 07/14/17 at 18:00 Acetaminophen/ Hydrocodone Bitart ([place] (5/325)) 2 tab Q6H PRN PO SEVERE PAIN LEVEL 7-10 Last administered on 07/26/17 08:41; Admin Dose 2 TAB; Start 07/14 at 18:00 Morphine Sulfate (morphine) 2 mg Q4H PRN IV SEVERE PAIN LEVEL 7-10 Last administered on 07/21/17 16:31; Admin Dose 2 MG; Start 07/14/17 at 18:00 Famotidine (Pepcid) 20 mg DAILY PO Last administered on 07/27/17 08:33; Admin Dose 20 MG; Start 07/15/17 at 09:00 Oxycodone/ Acetaminophen (Percocet (5/ 325)) 1 tab Q6H PRN PO PAIN LEVEL 6-10 Last administered on 07/24/17 18:08; Admin Dose 1 TAB; Start 07/14/17 at 22: 00 Acetaminophen (Tylenol Tab) 650 mg Q6H PRN PO PAIN AND OR ELEVATED TEMP Last administered on 07/18/17 13:38; Admin Dose 650 MG; Start 07/14/17 at 22:00 Ondansetron HCl (Zofran Inj) 4 mg Q6H PRN IV NAUSEA AND/OR VOMITING Last administered on 07/19/17 16:28; Admin Dose 4 MG; Start 07/14/17 at 22:00 Enoxaparin Sodium (Lovenox) 40 mg DAILY@07 SC Last administered on 07/26/17 06:26; Admin Dose 40 MG; Start 07/15/17 at 07:00 Ibuprofen (Motrin) 600 mg Q6H PRN PO PAIN LEVEL 1-5 Last administered on 09:20; Admin Dose 600 MG; Start 07/16/17 at 18:02 Silver Sulfadiazine (Thermazene 1% 25 Gm) 1 applic DAILY TOP Last administered on 07/26/17 09:07; Admin Dose 1 APPLIC; Start 07/21/17 at 09:00 Polyethylene Glycol (Miralax) 17 gm DAILY PO Last administered on 07/27/17 08 :33; Admin Dose 17 GM; Start 07/23/17 at 09:00 Diphenhydramine HCl 25 mg 25 mg Q6H PRN IV ITCHING Last administered on 06:44; Admin Dose 25 MG; Start 07/23/17 at 06:30 Cefepime HCl (Maxipime 1gm/50 ml (Pmx)) 50 ml @ 100 mls/hr Q12 IVPB Last administered on 07/27/17 08:33; Admin Dose 100 MLS/HR; Start 07/24/17 at 21: 00 Metronidazole (Flagyl) 500 mg Q8 PO Last administered on 07/27/17 14:20; Admin Dose 500 MG; Start 07/24/17 at 22:00 Lactobacillus Acidophilus/ Rhamnosus (Culturelle) 1 cap BID PO Last administered on 07/27/17 08:33; Admin Dose 1 CAP; Start 07/26/17 at 21:00 IV Flush (NS 10 ml) 10 ml PRN PRN IV IV PROTOCOL; Start 07/27/17 at 17:00 RANDOLPH BERMEO NP Jul 27, 2017 20:07
[2017-07-27] MEDS: HYDROCODONE/APAP (5/325) TAB PO PRN (20:23)
[2017-07-27] MEDS: ACETAMINOPHEN 325 MG TAB PO PRN (20:25)
[2017-07-27 21:57] VITALS: BP 111/59; RESP 19
[2017-07-28 02:27] VITALS: BP 109/58; RESP 18
[2017-07-28] MEDS: metroNIDAZOLE 500 MG TAB PO SCH ×2 (06:23→13:16)
[2017-07-28] MEDS: ENOXAPARIN 40 MG/0.4 ML SYG SC SCH (06:27)
[2017-07-28 08:01] VITALS: BP 109/52; RESP 18
[2017-07-28] MEDS: FAMOTIDINE 20 MG TAB PO SCH (08:51)
[2017-07-28] MEDS: CEFEPIME 1GM/50 ML (PMX) 50 ML IVPB SCH ×2 (08:51→17:52)
[2017-07-28] MEDS: SILVER SULFADIAZINE 1% 25 GM CR TOP SCH (08:51)
[2017-07-28] MEDS: LACTOBACILLUS RHAMNOSUS CAP PO SCH (08:51)
[2017-07-28] MEDS: POLYETHYLENE GLYCOL 17 GM PACKET PO SCH (08:51)
[2017-07-28] MEDS: HYDROCODONE/APAP (5/325) TAB PO PRN (11:04)
[2017-07-28] MEDS: ALBUTEROL/IPRATROPIUM (NEB) 3 ML AMP HHN PRN ×2 (12:09→16:47)
--- NOTE | 2017-07-28 13:15 | DS ---
Date/Time of Note Date/Time of Note DATE: 07/28/17 TIME: 13:10 Discharge Summary Admission/Discharge Info Admit Date/Time Jul 14, 2017 at 17:24 Discharge Date/Time Discharge Diagnosis Appendicitis-status post laparoscopic appendectomy; postop peritonitis, Chronic asthma, Recent pneumonia Patient Condition: Stable Procedures Laparoscopic appendectomy Preoperative Diagnosis Acute appendicitis Postoperative Diagnosis Same Operation/Procedure Performed Laparoscopic appendectomy CT A/ P 07/24 IMPRESSION: There is placement of a right-sided pelvic drainage catheter with reduction of a previously seen fluid collection. A trace amount of residual air remains adjacent to the catheter and there is continued localized mesenteric fat stranding with residual phlegmon. An area of localized inflammation / phlegmon in the anterior mesenteric fat of the pelvis is again seen with a small focus of localized fluid. This could represent a second focus of inflammation/infection. There is a fecal filled colon without obstruction. There is secondary inflammatory changes of the terminal ileum adjacent to the surgical bed. Trace fat containing hernia is seen at the midline just superior to the umbilicus. RPTAT: AA Hospital Course 31 yo M with PMH of asthma that is well controlled presented to ED c/o severe abdominal pain that started at 2am this morning. Patient states he was fine when he went to bed at 10pm but woke up with diffuse abdominal pain, nausea, 4 episodes of nonbloody emesis, and multiple episodes of watery diarrhea. Patient has not been able to keep anything down including water. He denies any chest pain, shortness of breath, dizziness, LOC, urinary issues, or blood in stool. Patient has a history of inverted T waves that he was told was benign. He has had achilles surgery in the past and tolerated anesthesia with no issues and denies any bleeding disorders. The patient was admitted, seen by general surgery team. He underwent laparoscopic appendectomy. He did however develop some postop abscess as well as likely peritonitis/intra-abd abscess. Patient was placed on appropriate antibiotics and seen by infectious disease team, his wound culture did grow multi-growth bacteria. Patient responded well to intra- abdominal drain as well as antibiotics, eventually he was able to ambulate, tolerate p.o. diet his vital signs are stable as well. His drain did come out 3 days after placement but after speaking with surgery team is recommended that patient could remain without the drain as his abscess was small to begin with. Patient be discharged home today improved condition. He will take 2 weeks of antibiotics one IV and he has a PICC placement for that as well as another antibiotic p.o.; see below for full list of discharge medications. Home Meds Active Scripts Levofloxacin* (Levaquin*) 750 Mg Tablet, 750 MG PO DAILY@06 for 1 Day, #1 TAB this antibiotic has been cancelled. Prov:MARBELLA ARAUZ MD 07/26/17 Polyethylene Glycol* (Miralax*) 17 Gm Powd.pack, 17 GM PO DAILY for 3 Days, #3 3 Refills otc Prov:MRABELLA ARAUZ MD 07/26/17 Silver Sulfadiazine (Silver Sulfadiazine) 25 Gm Cream..g., 1 APPLIC TOP DAILY for 10 Days, #20 2 Refills Prov:MARBELLA ARAUZ MD 07/26/17 Lactobacillus Rhamnosus GG (Culturelle) 1 Each Capsule, 1 CAP PO BID for 10 Days , #20 CAP Prov:MARBELLA ARAUZ MD 07/26/17 Ibuprofen* (Ibuprofen*) 600 Mg Tablet, 600 MG PO Q6H Y for PAIN LEVEL 1-5 for 10 Days, #30 TAB Prov:MARBELLA ARAUZ MD 07/26/17 Acetaminophen* (Tylenol*) 325 Mg Tablet, 650 MG PO Q6H Y for PAIN AND OR ELEVATED TEMP for 1 Day, #1 TAB Prov:MARBELLA ARAUZ MD 07/26/17 Metronidazole* (Flagyl*) 500 Mg Tablet, 500 MG PO Q8 for 15 Days, #45 TAB Prov:MARBELLA ARAUZ MD 07/26/17 Hydrocodone Bit-Acetaminophen (Hydrocodone Bit-APAP) 5-325MG Tablet, 1 TAB PO Q8 Y for MODERATE PAIN LEVEL 4-6 for 14 Days, #42 TAB Prov:CLAYTON VINES 07/24/17 Reported Medications Albuterol Sulfate* (Ventolin HFA*) 18 Gm Hfa.aer.ad, 2 PUFF INHALATION NEEDED , #1 INHALER 07/14/17 Follow-up Plan Primary 1 week General surgery 1 week Primary Care Provider Care Physician No Primary Time spent on discharge: > 30 minutes JHONNY ABREU Jul 28, 2017 13:15
[2017-07-28 14:33] VITALS: BP 110/53; RESP 16
== END 2017-07-28 18:51 | disposition home health service (06) | DRG 341 ==
LOC: FTE 11:46 → PP2 17:24
PROVIDERS: ADMIT Internal Medicine; ATTEND Internal Medicine
PROC: 0DTJ4ZZ Resection of Appendix, Percutaneous Endoscopic Approach (ICD-10-PCS; principal; 2017-07-14 20:00)
PROC: 0W9G30Z Drainage of Peritoneal Cavity with Drainage Device, Percutaneous Approach (ICD-10-PCS; 2017-07-20)
PROC: 02HV33Z Insertion of Infusion Device into Superior Vena Cava, Percutaneous Approach (ICD-10-PCS; 2017-07-27)
PROC: B548ZZA Ultrasonography of Superior Vena Cava, Guidance (ICD-10-PCS; 2017-07-27)
DX: K35.80 Unspecified acute appendicitis (principal); J18.9 Pneumonia, unspecified organism; N17.9 Acute kidney failure, unspecified; K65.1 Peritoneal abscess; T81.4XXA Infection following a procedure, initial encounter; J45.909 Unspecified asthma, uncomplicated; D64.9 Anemia, unspecified; R03.0 Elevated blood-pressure reading, without diagnosis of hypertension; S30.821A Blister (nonthermal) of abdominal wall, initial encounter; X58.XXXA Exposure to other specified factors, initial encounter; Y92.239 Unspecified place in hospital as the place of occurrence of the external cause
CPT/HCPCS: 36415; 36569; 71010; 71020; 74176; 74177; 76937; 77012; 80048; 80053; 80069; 80202; 81001; 83036; 83690; 83735; 84100; 84443; 85025; 85610; 87040; 87070; 87075; 87086; 88304; 93005; 94640; 94664; 96374; 96375; 96376; J0171; J0295; J0456; J0690; J0692; J1100; J1170; J1200; J1650; J1885; J2250; J2270; J2405; J2543; J2710; J3010; J3370; J3475; J3480; J7030; J7040; J7050; J7070; Q9967